=== PATIENT | male | born 1950 | race Caucasian/White ===

== ENCOUNTER → 2016-12-25 | Outpatient (REF) | payer MEDICARE, OTHER ==
[~2016-12-25] MED LIST: ATOVASTATIN PO; BACLOFEN PO; COUM2.5T11 PO; JANUVIA PO; LYRICA PO; METFORMIN PO; METHIMAZOLE PO; NAPRPOW4 PO; PERC5TAB6 PO; QUINAPRIL PO; TYLE325T5 PO; VICO7.5T11 PO; ZOLPIDEM PO
[2016-12-25 12:23] LABS: ALBUMIN 4.4 GM/DL (3.2-5.2); ALBUMIN/GLOBULIN RATIO 1.63 (1.00-1.93); ALKALINE PHOSPHATASE 71 U/L (45-117); ALT/SGPT 39 U/L (12-78); ANION GAP 9 MEQ/L (8-16); AST/SGOT 21 U/L (15-37); BILIRUBIN,TOTAL 0.6 MG/DL (0.2-1.0); BLOOD UREA NITROGEN 24 MG/DL (7-18); CALCIUM LEVEL 8.9 MG/DL (8.8-10.2); CARBON DIOXIDE LEVEL 26 MEQ/L (21-32); CHLORIDE LEVEL 106 MEQ/L (98-107); CHOLESTEROL LEVEL 161 MG/DL (<200); CREATININE FOR GFR 0.94 MG/DL (0.70-1.30); GLOMERULAR FILTRATION RATE > 60.0 (>49); GLUCOSE, FASTING 129 MG/DL (80-110); POTASSIUM SERUM 4.8 MEQ/L (3.5-5.1); SODIUM LEVEL 141 MEQ/L (136-145); TOTAL PROTEIN 7.1 GM/DL (6.4-8.2); TRIGLYCERIDES LEVEL 173 MG/DL (<150)
[2016-12-25 12:36] LABS: BASO # 0.1 K/mm3 (0.0-0.2); BASO % 0.8 % (0.0-1.0); EOS # 0.3 K/mm3 (0.0-0.50); EOS % 3.3 % (0.0-3.0); LYMPH # 3.2 K/mm3 (1.5-4.5); LYMPH % 39.9 % (24.0-44.0); MEAN CORPUSCULAR HEMOGLOBIN 31.7 pg (27.0-33.0); MEAN CORPUSCULAR HGB CONC 32.8 g/dl (32.0-36.5); MEAN CORPUSCULAR VOLUME 96.4 fl (80.0-96.0); MONO # 0.5 K/mm3 (0.0-0.8); MONO % 6.4 % (0.0-5.0); NEUTROPHILS # 3.7 K/mm3 (1.8-7.7); NEUTROPHILS % 46.7 % (36.0-66.0); RED CELL DISTRIBUTION WIDTH 12.6 % (11.5-14.5)
== END ==
LOC: M LABDRAW1 11:24
PROVIDERS: ATTEND Nurse Practitioner Family
DX: E13.00 Other specified diabetes mellitus with hyperosmolarity without nonketotic hyperglycemic-hyperosmolar coma (NKHHC) (principal)

== ENCOUNTER → 2017-03-18 | Outpatient (CLI) | payer MEDICARE, OTHER ==
[2017-03-18 07:41] LABS: BASO # 0.1 K/mm3 (0.0-0.2); BASO % 1.2 % (0.0-1.0); EOS # 0.7 K/mm3 (0.0-0.50); EOS % 8.1 % (0.0-3.0); LYMPH # 2.9 K/mm3 (1.5-4.5); LYMPH % 35.6 % (24.0-44.0); MEAN CORPUSCULAR HEMOGLOBIN 32.2 pg (27.0-33.0); MEAN CORPUSCULAR HGB CONC 32.9 g/dl (32.0-36.5); MEAN CORPUSCULAR VOLUME 97.8 fl (80.0-96.0); MONO # 0.6 K/mm3 (0.0-0.8); MONO % 6.7 % (0.0-5.0); NEUTROPHILS # 3.7 K/mm3 (1.8-7.7); NEUTROPHILS % 45.3 % (36.0-66.0); RED CELL DISTRIBUTION WIDTH 13.2 % (11.5-14.5); WHITE BLOOD COUNT 8.2 K/mm3 (4.0-10.0)
[2017-03-18 08:19] LABS: ALBUMIN/GLOBULIN RATIO 1.29 (1.00-1.93); ALKALINE PHOSPHATASE 81 U/L (45-117); ALT/SGPT 30 U/L (12-78); ANION GAP 4 MEQ/L (8-16); AST/SGOT 16 U/L (15-37); BILIRUBIN,TOTAL 0.6 MG/DL (0.2-1.0); BLOOD UREA NITROGEN 25 MG/DL (7-18); CALCIUM LEVEL 8.9 MG/DL (8.8-10.2); CARBON DIOXIDE LEVEL 30 MEQ/L (21-32); CHLORIDE LEVEL 105 MEQ/L (98-107); CHOLESTEROL LEVEL 164 MG/DL (<200); CREATININE FOR GFR 1.03 MG/DL (0.70-1.30); GLOMERULAR FILTRATION RATE > 60.0 (>49); GLUCOSE, FASTING 152 MG/DL (80-110); POTASSIUM SERUM 4.6 MEQ/L (3.5-5.1); SODIUM LEVEL 139 MEQ/L (136-145); TOTAL PROTEIN 7.1 GM/DL (6.4-8.2); TRIGLYCERIDES LEVEL 216 MG/DL (<150)
== END ==
LOC: M LAB 06:13
PROVIDERS: ATTEND Nurse Practitioner Family
DX: R53.83 Other fatigue (principal); E11.65 Type 2 diabetes mellitus with hyperglycemia; E78.5 Hyperlipidemia, unspecified

== ENCOUNTER → 2017-07-17 | Outpatient (REF) | payer MEDICARE, OTHER ==
[~2017-07-17] MED LIST changes: -COUM2.5T11 PO; +COUM2.5T17 PO; +PERC5TAB12 PO; -PERC5TAB6 PO
[2017-07-17 16:14] LABS: FREE T4 0.99 NG/DL (0.76-1.46)
== END ==
LOC: M LABDRAW1 12:39
PROVIDERS: ATTEND Physician Assistant Medical
DX: E05.20 Thyrotoxicosis with toxic multinodular goiter without thyrotoxic crisis or storm (principal)

== ENCOUNTER → 2018-06-04 | Outpatient (CLI) | payer MEDICARE, OTHER ==
[2018-06-04 08:12] LABS: FREE T4 1.04 NG/DL (0.76-1.46); THYROID STIMULATING HORMONE 0.888 uIU/ML (0.358-3.740)
== END ==
LOC: M LAB 06:36
DX: E05.20 Thyrotoxicosis with toxic multinodular goiter without thyrotoxic crisis or storm (principal)
CPT/HCPCS: 84443

== ENCOUNTER → 2018-06-07 | Outpatient (CLI) | payer MEDICARE, OTHER | LOC: M RAD 12:34 | DX: M70.60 Trochanteric bursitis, unspecified hip (principal); M46.1 Sacroiliitis, not elsewhere classified; G57.00 Lesion of sciatic nerve, unspecified lower limb; M54.16 Radiculopathy, lumbar region; M47.816 Spondylosis without myelopathy or radiculopathy, lumbar region; M51.36 Other intervertebral disc degeneration, lumbar region; M51.26 Other intervertebral disc displacement, lumbar region | CPT/HCPCS: 72148 ==

== ENCOUNTER → 2018-08-23 | Outpatient (REF) | payer MEDICARE, OTHER ==
[2018-08-23 18:12] LABS: RHEUMATOID FACTOR QUANT < 10.0 IU/ML (<15.0)
[2018-08-23 19:30] LABS: ERYTHROCYTE SEDIMENTATION RATE 16 mm/hr (0-20)
[2018-08-26 00:30] LABS: ANTINUCLEAR ANTIBODIES DIRECT Negative (Negative); Lyme Disease IgG/IgM Antibodie <0.91 ISR (0.00-0.90); Lyme Disease IgM Ab Quantitati <0.80 index (0.00-0.79)
== END ==
LOC: M LABNEURO 14:00
DX: M25.50 Pain in unspecified joint (principal)
CPT/HCPCS: 36415

== ENCOUNTER 2019-01-10 09:36 | Day surgery (SDC) | payer MEDICARE, OTHER ==
[~2019-01-10] VITALS: Ht 185.4 cm; Wt 97.9 kg
[~2019-01-10 09:36] MED LIST changes: +BACL10TA8 PO; +HYDR-3713 PO; +JANU100T PO; +LIPI10TA PO; +LIPI20TA PO; +LYRI200C PO; +METF10004 PO; +METH10TA PO; +METH25TAB PO; +NS 1,000 ML IV SCH; +PROPOFOL 200 MG/20 ML VIAL As Ordered ONE; +QUIN40TA26 PO; +ZOLP12.515 PO
--- NOTE | 2019-01-10 10:42 | ROOR ---
Patient Name: Angelo Ly Procedure Date: 01/10/2019 10:14 AM Date of : 1950 Age: 68 Room: [facility] Gender: Male Note Status: Finalized Procedure: Total Colonoscopy to Cecum + Biopsy Polypectomy Indications: Colon cancer screening in patient at increased risk: Colorectal cancer in brother Providers: Eros Arroyo MD Referring MD: JOCELYN MUNSON NP Requesting Provider: Medicines: Monitored Anesthesia Care Complications: No immediate complications. Procedure: Pre-Anesthesia Assessment: - The heart rate, respiratory rate, oxygen saturations, blood pressure, adequacy of pulmonary ventilation, and response to care were monitored throughout the procedure. The Colonoscope was introduced through the anus and advanced to the cecum, identified by appendiceal orifice and ileocecal valve. The colonoscopy was performed without difficulty. The patient tolerated the procedure well. The quality of the bowel preparation was good. Findings: The perianal and digital rectal examinations were normal. Non-bleeding internal hemorrhoids were found during retroflexion. The hemorrhoids were small and Grade I (internal hemorrhoids that do not prolapse). A small polyp was found in the ileocecal valve. The polyp was sessile. The polyp was removed with a jumbo cold forceps. Resection and retrieval were complete. A medium polyp was found at 55 cm proximal to the anus. The polyp was carpet-like. The polyp was removed with a jumbo cold forceps. Resection and retrieval were complete. The exam was otherwise without abnormality on direct and retroflexion views. The exam was otherwise without abnormality on direct and retroflexion views. Impression: - Non-bleeding internal hemorrhoids. - One small polyp at the ileocecal valve, removed with a jumbo cold forceps. Resected and retrieved. - One medium polyp at 55 cm proximal to the anus, removed with a jumbo cold forceps. Resected and retrieved. - The examination was otherwise normal on direct and retroflexion views. - The examination was otherwise normal on direct and retroflexion views. - The exam was otherwise normal to the cecum. Recommendation: - Patient has a contact number available for emergencies. The signs and symptoms of potential delayed complications were discussed with the patient. Return to normal activities tomorrow. Written discharge instructions were provided to the patient. - High fiber diet. - Discharge patient to home. - Continue present medications. - Await pathology results. - Telephone GI clinic for pathology results in 1 week. - Repeat colonoscopy for surveillance based on pathology results. - Return to referring physician. - The findings and recommendations were discussed with the patient's family. Eros Arroyo MD Eros Arroyo MD 01/10/2019 10:42:18 AM Electronically signed by Eros Arroyo MD Number of Addenda: 0 Note Initiated On: 01/10/2019 10:14 AM Estimated Blood Loss: Estimated blood loss: none.
[2019-01-10 11:00] VITALS: BP 107/60
== END 2019-01-10 11:07 | disposition home or self-care (01) ==
LOC: M OPP 09:36
PROVIDERS: ATTEND Internal Medicine Gastroenterology
DX: K64.0 First degree hemorrhoids (principal); D12.6 Benign neoplasm of colon, unspecified; K63.5 Polyp of colon; Z12.11 Encounter for screening for malignant neoplasm of colon; Z80.0 Family history of malignant neoplasm of digestive organs

== ENCOUNTER → 2019-05-31 | Outpatient (REF) | payer MEDICARE, OTHER ==
[~2019-05-31] MED LIST changes: -NS 1,000 ML IV SCH; -PROPOFOL 200 MG/20 ML VIAL As Ordered ONE
[2019-05-31 11:45] LABS: FREE T4 0.99 NG/DL (0.76-1.46); THYROID STIMULATING HORMONE 1.17 uIU/ML (0.358-3.740)
== END ==
LOC: M LABDRAW1 10:13
PROVIDERS: ATTEND Nurse Practitioner Family
DX: E05.20 Thyrotoxicosis with toxic multinodular goiter without thyrotoxic crisis or storm (principal)

== ENCOUNTER → 2019-05-31 | Outpatient (REF) | payer MEDICARE, OTHER ==
[2019-05-31 11:17] LABS: HEMATOCRIT 42.1 % (42.0-52.0); HEMOGLOBIN 13.9 g/dl (13.5-17.5); MEAN CORPUSCULAR HEMOGLOBIN 31.9 pg (27.0-33.0); MEAN CORPUSCULAR VOLUME 96.6 fl (80.0-96.0); PLATELET COUNT, AUTOMATED 247 10^3/uL (150-450); RED BLOOD COUNT 4.36 10^6/uL (4.30-6.10); WHITE BLOOD COUNT 9.6 10^3/uL (4.0-10.0)
[2019-05-31 11:32] LABS: ALT/SGPT 31 U/L (12-78); BILIRUBIN,TOTAL 0.5 MG/DL (0.2-1.0); BLOOD UREA NITROGEN 27 MG/DL (7-18); CARBON DIOXIDE LEVEL 27 MEQ/L (21-32); CHLORIDE LEVEL 106 MEQ/L (98-107); CHOLESTEROL LEVEL 160 MG/DL (<200); CHOLESTEROL RISK RATIO 4.324 (<5); CREATININE FOR GFR 1.25 MG/DL (0.70-1.30); GLOMERULAR FILTRATION RATE > 60.0 (>49); GLUCOSE, FASTING 158 MG/DL (70-100); HDL CHOLESTEROL 37 MG/DL (>40); LDL CHOLESTEROL 63 MG/DL (<100); NON-HDL-C 123 MG/DL; POTASSIUM SERUM 4.8 MEQ/L (3.5-5.1); SODIUM LEVEL 140 MEQ/L (136-145); TOTAL PROTEIN 7.7 GM/DL (6.4-8.2); TRIGLYCERIDES LEVEL 302 MG/DL (<150)
== END ==
LOC: M LABDRAW1 10:15
PROVIDERS: ATTEND Nurse Practitioner Family
DX: E11.65 Type 2 diabetes mellitus with hyperglycemia (principal); E78.5 Hyperlipidemia, unspecified; I10 Essential (primary) hypertension; E05.20 Thyrotoxicosis with toxic multinodular goiter without thyrotoxic crisis or storm

== ENCOUNTER 2019-06-14 16:02 | Inpatient (IN) | payer MEDICARE, OTHER ==
[~2019-06-14] VITALS: Ht 188 cm; Wt 97.3 kg
[~2019-06-14 16:02] MED LIST changes: -VICO7.5T11 PO; +VICO7.5T12 PO
[2019-06-14] MEDS ORDERED: ADACEL/BOOSTRIX VACCINE (DIPHTH/PERTUSS/ACELL/TETANUS)0.5ML SYR (90715) IM ONE (16:30)
[2019-06-14 16:38] LABS: HEMATOCRIT 30.8 % (42.0-52.0); HEMOGLOBIN 10.3 g/dl (13.5-17.5); MEAN CORPUSCULAR HEMOGLOBIN 32.6 pg (27.0-33.0); MEAN CORPUSCULAR HGB CONC 33.4 g/dl (32.0-36.5); MEAN CORPUSCULAR VOLUME 97.5 fl (80.0-96.0); PLATELET COUNT, AUTOMATED 166 10^3/uL (150-450); RED BLOOD COUNT 3.16 10^6/uL (4.30-6.10); WHITE BLOOD COUNT 14.3 10^3/uL (4.0-10.0)
[2019-06-14] MEDS: NS 1,000 ML IV SCH ×3 (16:43→23:43)
[2019-06-14 16:56] LABS: INR 1.24; PARTIAL THROMBOPLASTIN TIME 29.4 SECONDS (25.0-38.4); PROTHROMBIN TIME 15.3 SECONDS (11.8-14.0)
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
[2019-06-14 17:25] LABS: ALBUMIN 3.8 GM/DL (3.2-5.2); ALT/SGPT 54 U/L (12-78); BILIRUBIN,DIRECT 0.2 MG/DL (0.0-0.2); CK-MB VALUE MASS 20.5 NG/ML (<3.6); CPK CREATINE PHOSPHOKINASE 7417 U/L (39-308); LIPASE 113 U/L (73-393); MB/CK RELATIVE INDEX 0.28 (< OR =4); TOTAL PROTEIN 8.4 GM/DL (6.4-8.2); TROPONIN I 0.07 NG/ML (< 0.10)
[2019-06-14] MEDS ORDERED: NAPR-885 PO (17:37)
[2019-06-14] MEDS ORDERED: HYDR-4514 PO (17:37)
[2019-06-14] MEDS ORDERED: BACL1TAB8 PO (17:37)
--- NOTE | 2019-06-14 17:59 | REP ---
RIGHT ANKLE, FOUR VIEWS: Four views of the right ankle are performed. There is a fracture of the distal fibula with lateral displacement as well as posterior displacement. There is widening of the medial ankle mortise compatible with ligamentous disruption. Talus is mildly displaced posteriorly on the lateral view with respect to the tibia. Electronically Signed by Kelby Aguilar MD 06/16/2019 04:32 P
--- NOTE | 2019-06-14 17:59 | REP ---
RIGHT LOWER LEG, AP AND LATERAL: AP and lateral views of the right lower leg were performed. There is a total knee prosthesis. There is a slightly displaced fracture of the proximal end of the fibula. There is a fracture of the distal end of the fibula which is displaced posterolaterally. There is widening of the medial ankle mortise. There is mild displacement of the talus posteriorly. Electronically Signed by Kelby Aguilar MD 06/16/2019 04:32 P
--- NOTE | 2019-06-14 18:05 | REP ---
RIGHT FOOT, FOUR VIEWS: Four views of the right foot are performed. No fracture is seen of the osseous structures of the right foot. There is mild posterior and inferior calcaneal spurring. There is moderate narrowing at the first metatarsal phalangeal joint with associated subchondral sclerosis and spurring. There is diffuse narrowing of the interphalangeal joints. Note is made of a fracture of the distal fibula and now posterior displacement of the talus with respect to the tibia, better seen on the right ankle series performed today. Electronically Signed by Kelby Aguilar MD 06/16/2019 04:33 P
[2019-06-14 18:23] LABS: ATYPICAL LYMPH 31 % (0-5)
[2019-06-14 18:24] LABS: LYMPHOCYTES 22 % (16-44); MONOCYTES 7 % (0-5); NEUTROPHILS 37 % (28-66); PLATELET ESTIMATE NORMAL (NORMAL)
[2019-06-14 18:50] LABS: CALCIUM LEVEL 12.4 MG/DL (8.8-10.2); CREATININE FOR GFR 3.6 MG/DL (0.70-1.30); POTASSIUM SERUM 4.7 MEQ/L (3.5-5.1)
[2019-06-14 22:50] VITALS: BP 165/82
[2019-06-15 00:53] LABS: APPEARANCE, URINE HAZY (CLEAR); BACTERIA, URINE AUTO NEGATIVE (NEGATIVE); BILIRUBIN, URINE AUTO NEGATIVE (NEGATIVE); BLOOD, URINE BLOOD 3+ (NEGATIVE); COLOR, URINE STRAW (YELLOW); GLUCOSE, URINE (UA) AUTO NEGATIVE (NEGATIVE); KETONE, URINE AUTO NEGATIVE (NEGATIVE); LEUKOCYTE ESTERASE, URINE AUTO NEGATIVE (NEGATIVE); MUCUS, URINE SMALL (NEGATIVE); NITRITE, URINE AUTO NEGATIVE (NEGATIVE); PROTEIN, URINE AUTO 1+ mg/dL (NEGATIVE); RBC, URINE AUTO 19 /HPF (0-3); SQUAMOUS EPITHELIAL CELL UR AU 0 /HPF (0-6); UROBILINOGEN, URINE AUTO 0.2 mg/dL (0.0-2.0); WBC, URINE AUTO 3 /HPF (0-3)
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
[2019-06-15 04:00] VITALS: BP 173/83
[2019-06-15] MEDS: MORPHINE 4 MG/ML 1ML VIAL/SYRINGE (J2270) IV PRN (04:47)
[2019-06-15 05:21] LABS: HEMATOCRIT 29.6 % (42.0-52.0); HEMOGLOBIN 9.8 g/dl (13.5-17.5); MEAN CORPUSCULAR HGB CONC 33.1 g/dl (32.0-36.5); MEAN CORPUSCULAR VOLUME 96.7 fl (80.0-96.0); PLATELET COUNT, AUTOMATED 140 10^3/uL (150-450); RED BLOOD COUNT 3.06 10^6/uL (4.30-6.10); WHITE BLOOD COUNT 12.4 10^3/uL (4.0-10.0)
--- NOTE | 2019-06-15 05:41 | ECGEPIP ---
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
[2019-06-15] MEDS ORDERED: ceFAZolin SOD 2 GM in IV 1 EA IV ONE (06:00)
[2019-06-15 06:09] LABS: ALBUMIN 3.1 GM/DL (3.2-5.2); BILIRUBIN,TOTAL 1.2 MG/DL (0.2-1.0); CALCIUM LEVEL 11.5 MG/DL (8.8-10.2); CK-MB VALUE MASS 7.9 NG/ML (<3.6); CREATININE FOR GFR 3.4 MG/DL (0.70-1.30); GLOMERULAR FILTRATION RATE 19.2 (>49); MB/CK RELATIVE INDEX 0.12 (< OR =4); POTASSIUM SERUM 4.7 MEQ/L (3.5-5.1); TOTAL PROTEIN 7.9 GM/DL (6.4-8.2); TROPONIN I 0.05 NG/ML (< 0.10)
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
[2019-06-15] MEDS: NS 1,000 ML IV SCH ×4 (06:42→20:50)
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
[2019-06-15 08:00] VITALS: BP 161/81
[2019-06-15] MEDS ORDERED: PREGABALIN 100 MG CAP (LYRICA) PO SCH (09:00)
[2019-06-15 09:26] LABS: URIC ACID 9.8 MG/DL (3.5-7.2)
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
[2019-06-15] MEDS ORDERED: DOCUSATE SODIUM 100 MG CAP PO PRN (10:30)
[2019-06-15 12:00] VITALS: BP 160/82
[2019-06-15] MEDS: HEPARIN SOD (PORCINE) 5000 UNITS/ML VIAL SQ SCH ×2 (12:40→20:50)
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
[2019-06-15 15:46] LABS: CALCIUM LEVEL 11.4 MG/DL (8.8-10.2); CREATININE FOR GFR 3.1 MG/DL (0.70-1.30); GLOMERULAR FILTRATION RATE 21.4 (>49); PERCENT SATURATION 29.7 % (19.7-50.0); POTASSIUM SERUM 4.4 MEQ/L (3.5-5.1)
[2019-06-15 16:00] VITALS: BP 163/78
[2019-06-15] MEDS ORDERED: GLUCAGON FOR INJ 1 MG VIAL (J1610) SC PRN (18:30)
[2019-06-15] MEDS ORDERED: DEXTROSE 50% 50 ML SYRINGE IV PRN (18:30)
[2019-06-15] MEDS ORDERED: GLUCOSE 4 GM CHEW TABLET PO PRN (18:30)
[2019-06-15 18:59] LABS: FOLATE 5.1 NG/ML (>5.4)
[2019-06-15 20:00] VITALS: BP 178/81
[2019-06-15] MEDS: HumaLOG INSULIN (NovoLOG) PER UNIT SC SCH (20:31)
[2019-06-15] MEDS: ACETAMINOPHEN TAB 650MG DOSE (2X325MG) PO PRN (20:50)
[2019-06-15 23:59] VITALS: BP 170/79
[2019-06-16] MEDS: NS 1,000 ML IV SCH ×3 (00:44→16:24)
[2019-06-16 04:00] VITALS: BP 180/79
[2019-06-16] MEDS: HEPARIN SOD (PORCINE) 5000 UNITS/ML VIAL SQ SCH (04:59)
[2019-06-16 05:51] LABS: HEMATOCRIT 25.8 % (42.0-52.0); HEMOGLOBIN 8.5 g/dl (13.5-17.5); MEAN CORPUSCULAR HEMOGLOBIN 32.4 pg (27.0-33.0); MEAN CORPUSCULAR HGB CONC 32.9 g/dl (32.0-36.5); MEAN CORPUSCULAR VOLUME 98.5 fl (80.0-96.0); PLATELET COUNT, AUTOMATED 131 10^3/uL (150-450); RED BLOOD COUNT 2.62 10^6/uL (4.30-6.10); WHITE BLOOD COUNT 14.5 10^3/uL (4.0-10.0)
[2019-06-16] MEDS ORDERED: ceFAZolin SOD 2 GM in IV 1 EA IV ONE (06:00)
[2019-06-16 06:37] LABS: ALBUMIN 2.9 GM/DL (3.2-5.2); BILIRUBIN,TOTAL 1.1 MG/DL (0.2-1.0); CALCIUM LEVEL 10.7 MG/DL (8.8-10.2); CREATININE FOR GFR 2.8 MG/DL (0.70-1.30); POTASSIUM SERUM 4.1 MEQ/L (3.5-5.1); TOTAL PROTEIN 7.5 GM/DL (6.4-8.2)
[2019-06-16 06:51] LABS: EOSINOPHILS 3 % (0-3); LYMPHOCYTES 39 % (16-44); MONOCYTES 8 % (0-5); NEUTROPHILS 50 % (28-66); PLATELET ESTIMATE DECREASED (NORMAL)
[2019-06-16 07:12] VITALS: BP 172/83
[2019-06-16] MEDS: HumaLOG INSULIN (NovoLOG) PER UNIT SC SCH ×4 (07:30→21:00)
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
--- NOTE | 2019-06-16 08:47 | IPNPDOC ---
Date Seen The patient was seen on 06/16/19. Progress Note Patient seen and evaluated at this time. He has good baseline exercise tolerance able to climb several flights of stairs without any symptoms whatsoever. He denies any significant cardiac history he does have a history of hypertension dyslipidemia he is above the age of 65. He is anemic at this time I suspected benefit from transfusion perioperatively this does not need to be completed preoperatively. I suspect he is at moderate risk but he is medically optimized no further testing prior to procedure would recommend surgery today or as soon as possible defer to orthopedic surgery. VS, I&O, 24H, Fishbone Vital Signs/I&O Vital Signs Date Time Temp Pulse Resp B/P (MAP) Pulse Ox O2 Delivery O2 Flow Rate FiO2 06/16/19 07:12 98.6 90 18 172/83 (112) 95 06/14/19 16:15 Room Air I&O- Last 24 Hours up to 6 AM 06/16/19 06:00 Intake Total 5821 ml Output Total 3890 ml Balance 1931 ml Laboratory Data 24H LABS Laboratory Tests 2 06/15/19 14:50: Anion Gap 8, Glomerular Filtration Rate 21.4L, Blood Urea Nitrogen 53H, Creatinine 3.10H, Sodium Level 142, Potassium Level 4.4, Chloride Level 111H, Carbon Dioxide Level 23, Calcium Level 11.4H, Iron Level 69, Total Iron Binding Capacity 232L, Transferrin % Saturation 29.7, Ferritin 586H 06/15/19 14:51: Reticulocyte # (auto) 23.8, Percent Reticulocyte Count 0.8, Reticulocyte Hemoglobin Equivalent 37.3H 06/15/19 17:53: Vitamin B12 Level 285, Folate 5.1L 06/15/19 20:21: Bedside Glucose (Misc Panel) 170H 06/16/19 05:37: White Blood Count 14.5H, Red Blood Count 2.62L, Hemoglobin 8.5L, Hematocrit 2 5.8L, Mean Corpuscular Volume 98.5H, Mean Corpuscular Hemoglobin 32.4, Mean Corpuscular Hemoglobin Concent 32.9, Red Cell Distribution Width 14.2, Platelet Count 131L, Monocytes # (Auto) , Nucleated Red Blood Cells % (auto) 0.3H, Neutrophils 50, Lymphocytes (Manual) 39, Monocytes (Manual) 8H, Eosinophils (Manual) 3, Platelet Estimate DECREASED, Anion Gap 8, Glomerular Filtration Rate 24.0L, Blood Urea Nitrogen 44H, Creatinine 2.80H, Sodium Level 142, Potassium Level 4.1, Chloride Level 113H, Carbon Dioxide Level 21, Calcium Level 10.7H, Aspartate Amino Transf (AST/SGOT) 78H, Alanine Aminotransferase (ALT/SGPT) 48, Total Creatine Kinase 3001H, Alkaline Phosphatase 83, Total Bilirubin 1.1H, To ninoska Protein 7.5, Albumin 2.9L, Albumin/Globulin Ratio 0.63L CBC/BMP Laboratory Tests 06/15/19 14:50 Calcium Level 11.4 H 06/16/19 05:37 Calcium Level 10.7 H, Red Blood Count 2.62 L, Mean Corpuscular Volume 98.5 H, Mean Corpuscular Hemoglobin 32.4, Mean Corpuscular Hemoglobin Concent 32.9, Red Cell Distribution Width 14.2, Monocytes # (Auto) , Aspartate Amino Transf (AST/SGOT) 78 H, Alanine Aminotransferase (ALT/SGPT) 48, Total Creatine Kinase 3001 H, Alkaline Phosphatase 83, Total Bilirubin 1.1 H, Total Protein 7.5, Albumin 2.9 L KIMBER TRIPLETT MD Jun 16, 2019 08:47
[2019-06-16] MEDS ORDERED: FLUBLOK(EGG FREE)(QUAD)INFLUENZA VACC 0.5ML SYRINGE (90682)18YRS&OLDER IM ONE (09:00)
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
[2019-06-16 13:00] VITALS: BP 160/70
[2019-06-16 13:04] LABS: ALBUMIN 4.03 GM/DL (3.29-5.55); ALBUMIN % 49.1 % (55.8-66.1); ALPHA-1-GLOBULIN % 4.9 % (2.9-4.9); BETA-1-GLOBULINS % 5.2 % (4.7-7.2); BETA-2-GLOBULINS % 6.9 % (3.2-6.5); GAMMA GLOBULIN % 22.9 % (11.1-18.8)
[2019-06-16 13:05] LABS: BETA-1-GLOBULINS 0.43 GM/DL (0.28-0.60); BETA-2-GLOBULINS 0.57 GM/DL (0.19-0.55); GAMMA GLOBULINS 1.88 GM/DL (0.65-1.58); TOTAL PROTEIN 8.5 GM/DL (6.4-8.2)
[2019-06-16] MEDS ORDERED: ROCURONIUM BROMIDE 50 MG/5 ML VIAL As Ordered ONE (13:53)
[2019-06-16] MEDS ORDERED: dexameTHASONE 4 MG/ML 1ML VIAL (J1100) As Ordered ONE (13:53)
[2019-06-16] MEDS ORDERED: PROPOFOL 200 MG/20 ML VIAL As Ordered ONE (13:53)
[2019-06-16] MEDS ORDERED: fentaNYL 100 MCG/2 ML INJECTION (J3010) As Ordered ONE (13:53)
[2019-06-16] MEDS ORDERED: LIDOCAINE 2% INJ 100 MG/5 ML SDV (FOR ANES.) As Ordered ONE (13:53)
[2019-06-16] MEDS ORDERED: ONDANSETRON 4MG/2ML VIAL (J2405) As Ordered ONE (13:53)
[2019-06-16] MEDS ORDERED: MIDAZOLAM INJ 2 MG/2 ML VIAL (J2250) As Ordered ONE (13:54)
[2019-06-16] MEDS ORDERED: MORPHINE 4 MG/ML 1ML VIAL/SYRINGE (J2270) As Ordered ONE (15:01)
[2019-06-16] MEDS: MORPHINE 4 MG/ML 1ML VIAL/SYRINGE (J2270) IV PRN (15:21)
[2019-06-16 16:00] VITALS: BP 178/80
[2019-06-16] MEDS: FOLIC ACID 1 MG TAB PO SCH (16:23)
[2019-06-16] MEDS: ACETAMINOPHEN TAB 650MG DOSE (2X325MG) PO PRN (16:31)
[2019-06-16 18:44] VITALS: BP 160/70
[2019-06-16 20:00] VITALS: BP 150/70
[2019-06-16] MEDS ORDERED: PREGABALIN 50 MG CAP (LYRICA) PO SCH (21:00)
[2019-06-16] MEDS: CYANOCOBALAMIN 500 MCG TAB PO SCH (22:21)
[2019-06-17] VITALS (8 sets, daily range): BP systolic 140–176; BP diastolic 50–84
[2019-06-17 06:00] LABS: HEMATOCRIT 30.3 % (42.0-52.0); HEMOGLOBIN 10.2 g/dl (13.5-17.5); MEAN CORPUSCULAR HEMOGLOBIN 32.6 pg (27.0-33.0); MEAN CORPUSCULAR HGB CONC 33.7 g/dl (32.0-36.5); MEAN CORPUSCULAR VOLUME 96.8 fl (80.0-96.0); PLATELET COUNT, AUTOMATED 132 10^3/uL (150-450); RED BLOOD COUNT 3.13 10^6/uL (4.30-6.10); WHITE BLOOD COUNT 18.3 10^3/uL (4.0-10.0)
[2019-06-17 06:43] LABS: ALBUMIN 2.7 GM/DL (3.2-5.2); BILIRUBIN,TOTAL 1.5 MG/DL (0.2-1.0); CALCIUM LEVEL 11.5 MG/DL (8.8-10.2); CREATININE FOR GFR 2.4 MG/DL (0.70-1.30); GLOMERULAR FILTRATION RATE 28.7 (>49); TOTAL PROTEIN 7.7 GM/DL (6.4-8.2)
[2019-06-17] MEDS: NS 1,000 ML IV SCH ×2 (07:00→21:25)
[2019-06-17 08:07] LABS: IMMUNOGLOBULIN G 443 MG/DL (681-1648); IMMUNOGLOBULIN M 8.8 MG/DL (40-230); IMMUNOTYPING SERUM LAMBDA ABNORMAL (NORMAL)
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
[2019-06-17] MEDS: CYANOCOBALAMIN 500 MCG TAB PO SCH ×2 (09:58→21:00)
[2019-06-17] MEDS: FOLIC ACID 1 MG TAB PO SCH (09:59)
[2019-06-17] MEDS: amLODIPine 5 MG TAB PO SCH (09:59)
[2019-06-17] MEDS: HumaLOG INSULIN (NovoLOG) PER UNIT SC SCH ×4 (10:00→20:48)
--- NOTE | 2019-06-17 10:02 | REP ---
RIGHT ANKLE, THREE VIEWS: Three views of the right ankle are performed and compared to prior study of 06/14/2019. Fracture of the distal fibula is again seen with mild lateral displacement. Tibiotalar joint is well aligned. Tiny calcific densities are seen distal to the medial and lateral malleoli. There is mild calcaneal spurring. There is an overlying splint. Electronically Signed by Kelby Aguilar MD 06/17/2019 06:29 P
[2019-06-17 10:17] LABS: HEMOGLOBIN A1c 7.6 %
[2019-06-17] MEDS: ACETAMINOPHEN TAB 650MG DOSE (2X325MG) PO PRN (15:10)
[2019-06-17] MEDS: MORPHINE 4 MG/ML 1ML VIAL/SYRINGE (J2270) IV PRN (15:55)
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
[2019-06-18 04:39] VITALS: BP 168/83
[2019-06-18 05:29] LABS: HEMOGLOBIN 10.6 g/dl (13.5-17.5); MEAN CORPUSCULAR HEMOGLOBIN 33.1 pg (27.0-33.0); MEAN CORPUSCULAR HGB CONC 34.2 g/dl (32.0-36.5); MEAN CORPUSCULAR VOLUME 96.9 fl (80.0-96.0); PLATELET COUNT, AUTOMATED 148 10^3/uL (150-450); WHITE BLOOD COUNT 19.7 10^3/uL (4.0-10.0)
[2019-06-18 06:00] LABS: ALBUMIN 2.9 GM/DL (3.2-5.2); BILIRUBIN,TOTAL 1.4 MG/DL (0.2-1.0); CALCIUM LEVEL 11.7 MG/DL (8.8-10.2); CREATININE FOR GFR 2.13 MG/DL (0.70-1.30); POTASSIUM SERUM 3.8 MEQ/L (3.5-5.1); TOTAL PROTEIN 7.5 GM/DL (6.4-8.2)
[2019-06-18 08:00] VITALS: BP 158/70
[2019-06-18] MEDS: NS 1,000 ML IV SCH ×2 (08:53→16:49)
[2019-06-18] MEDS: HumaLOG INSULIN (NovoLOG) PER UNIT SC SCH ×4 (08:53→20:37)
[2019-06-18] MEDS: FOLIC ACID 1 MG TAB PO SCH (08:54)
[2019-06-18] MEDS: CYANOCOBALAMIN 500 MCG TAB PO SCH ×2 (08:54→20:29)
[2019-06-18] MEDS: amLODIPine 5 MG TAB PO SCH (08:55)
[2019-06-18] MEDS ORDERED: FLUBLOK(EGG FREE)(QUAD)INFLUENZA VACC 0.5ML SYRINGE (90682)18YRS&OLDER IM ONE (09:00)
[2019-06-18 11:57] LABS: URINE TOTAL PROTEIN 238.2 MG/DL (0-12)
[2019-06-18 12:00] VITALS: BP 152/76
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
[2019-06-18 16:00] VITALS: BP 160/48
[2019-06-18] MEDS: ACETAMINOPHEN TAB 650MG DOSE (2X325MG) PO PRN (17:52)
[2019-06-18 20:00] VITALS: BP 168/62
[2019-06-18] MEDS ORDERED: ZOLEDRONIC ACID 3 MG in D5W 100 ML IV ONE (20:00)
[2019-06-18] MEDS: RAMELTEON 8 MG TAB (ROZEREM) PO SCH (20:29)
[2019-06-18 23:59] VITALS: BP 165/75
[2019-06-19 04:00] VITALS: BP 162/78
[2019-06-19 05:35] LABS: HEMOGLOBIN 10.5 g/dl (13.5-17.5); MEAN CORPUSCULAR HEMOGLOBIN 31.4 pg (27.0-33.0); MEAN CORPUSCULAR HGB CONC 32.8 g/dl (32.0-36.5); MEAN CORPUSCULAR VOLUME 95.8 fl (80.0-96.0); PLATELET COUNT, AUTOMATED 178 10^3/uL (150-450); RED BLOOD COUNT 3.34 10^6/uL (4.30-6.10); WHITE BLOOD COUNT 19.7 10^3/uL (4.0-10.0)
[2019-06-19 05:56] LABS: ALBUMIN 2.8 GM/DL (3.2-5.2); BILIRUBIN,TOTAL 1.2 MG/DL (0.2-1.0); CREATININE FOR GFR 1.93 MG/DL (0.70-1.30); GLOMERULAR FILTRATION RATE 36.9 (>49); POTASSIUM SERUM 3.6 MEQ/L (3.5-5.1)
[2019-06-19] MEDS: NS 1,000 ML IV SCH ×2 (06:14→19:53)
[2019-06-19 08:00] VITALS: BP 160/90
[2019-06-19] MEDS: amLODIPine 5 MG TAB PO SCH (08:37)
[2019-06-19] MEDS: FOLIC ACID 1 MG TAB PO SCH (08:37)
[2019-06-19] MEDS: CYANOCOBALAMIN 500 MCG TAB PO SCH ×2 (08:38→20:50)
[2019-06-19] MEDS: HumaLOG INSULIN (NovoLOG) PER UNIT SC SCH ×4 (08:38→20:58)
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
[2019-06-19] MEDS: MORPHINE 4 MG/ML 1ML VIAL/SYRINGE (J2270) IV PRN ×2 (16:46→20:50)
[2019-06-19 18:00] VITALS: BP 178/80
[2019-06-19 18:42] VITALS: BP 166/78
[2019-06-19 20:00] VITALS: BP 154/74
[2019-06-19] MEDS: RAMELTEON 8 MG TAB (ROZEREM) PO SCH (20:49)
[2019-06-19 22:00] VITALS: BP 141/68
[2019-06-20 00:06] LABS: BETA 2 MICROGLOBULIN 5.2 mg/L (0.6-2.4); FREE KAPPA LIGHT CHAINS SERUM 32.3 mg/L (3.3-19.4); FREE LAMBDA LIGHT CHAINS SERUM 82471.2 mg/L (5.7-26.3)
[2019-06-20 00:06] LABS: PREGABALIN LEVEL 4.1 ug/mL (.); VITAMIN B1 LEVEL WHOLE BLOOD 119.1 nmol/L (66.5-200.0)
[2019-06-20 02:00] VITALS: BP 132/70
[2019-06-20] MEDS: ACETAMINOPHEN TAB 650MG DOSE (2X325MG) PO PRN (05:24)
[2019-06-20 06:00] VITALS: BP 142/69
[2019-06-20 06:07] LABS: HEMATOCRIT 30.4 % (42.0-52.0); HEMOGLOBIN 10.1 g/dl (13.5-17.5); MEAN CORPUSCULAR HEMOGLOBIN 31.8 pg (27.0-33.0); MEAN CORPUSCULAR HGB CONC 33.2 g/dl (32.0-36.5); MEAN CORPUSCULAR VOLUME 95.6 fl (80.0-96.0); PLATELET COUNT, AUTOMATED 162 10^3/uL (150-450); RED BLOOD COUNT 3.18 10^6/uL (4.30-6.10); WHITE BLOOD COUNT 15.4 10^3/uL (4.0-10.0)
[2019-06-20 06:27] LABS: ALBUMIN 2.6 GM/DL (3.2-5.2); BILIRUBIN,TOTAL 0.8 MG/DL (0.2-1.0); CALCIUM LEVEL 10.1 MG/DL (8.8-10.2); CREATININE FOR GFR 1.97 MG/DL (0.70-1.30); GLOMERULAR FILTRATION RATE 36.1 (>49); POTASSIUM SERUM 3.6 MEQ/L (3.5-5.1); TOTAL PROTEIN 7.6 GM/DL (6.4-8.2)
[2019-06-20] MEDS: HumaLOG INSULIN (NovoLOG) PER UNIT SC SCH ×4 (07:55→21:00)
[2019-06-20] MEDS: FOLIC ACID 1 MG TAB PO SCH (07:56)
[2019-06-20] MEDS: amLODIPine 5 MG TAB PO SCH (07:56)
[2019-06-20] MEDS: CYANOCOBALAMIN 500 MCG TAB PO SCH ×2 (07:57→21:09)
[2019-06-20 10:00] VITALS: BP 157/75
[2019-06-20] MEDS: NS 1,000 ML IV SCH (11:58)
[2019-06-20] MEDS ORDERED: POTASSIUM CHLORIDE 10 MEQ SR TABLET PO ONE (12:00)
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
[2019-06-20 14:00] VITALS: BP 153/76
--- NOTE | 2019-06-20 17:37 | REP ---
The elbows for views: I suspect there is a fracture at the base of the olecranon process. There is a air or gas within the soft tissues adjacent to this fracture. This could represent an associated laceration or olecranon bursitis/infection. No joint effusion is identified. Mineralization and joint spaces otherwise are unremarkable. An intravenous cannula is incidentally identified. Impression: Olecranon process fracture. Infected olecranon bursitis versus laceration adjacent to the fracture. Electronically Signed by Kelby Hugo MD 06/20/2019 05:28 P
[2019-06-20] MEDS: MORPHINE 4 MG/ML 1ML VIAL/SYRINGE (J2270) IV PRN ×2 (17:43→22:11)
[2019-06-20 18:00] VITALS: BP 149/74
--- NOTE | 2019-06-20 19:51 | IPN ---
DATE: 06/19/2019 Mr. Ly is seen this morning on his bedside. His significant other is present in the room. The patient is lying in the bed and denies any new complaints. He has no nausea or vomiting. He denies any dyspnea or chest pain. He is receiving IV fluid which he is tolerating reasonably well. PHYSICAL EXAMINATION: Temperature 98.3 degrees Fahrenheit, heart rate 102 per minute and respiratory rate 20 per minute. Blood pressure 160/90 mmHg and oxygen saturation 98%. His facial bruises and mild lacerations are unchanged. There is no oral thrush or ulcers. Neck is supple and without JVD or thyroid enlargement. Heart sounds are tachycardiac and lungs clear to auscultation. Abdomen soft and nontender. Bowel sounds are normal. Extremities without any cyanosis or clubbing. Right leg is in the cast. Today's labs show WBC count 19.7, hemoglobin 10.5 and hematocrit 32. Platelets 178. Sodium 143, potassium 3.6, CO2 27, BUN 29 and creatinine 1.93. Calcium level is up to 12.0 and albumin 2.8. PROBLEMS: 1. Acute kidney injury. Kidney function is slowly and gradually improving with IV fluid hydration. We will continue with the same and recheck his renal profile tomorrow. 2. Hypercalcemia, most likely related to plasma cell leukemia. His calcium level did improve initially but now it is getting worse again. He remains on IV fluid and one dose of zoledronic acid 3 mg was given last night. I will check his calcium level again tomorrow and if there is no further improvement then we will give him another dose of zoledronic acid. Most likely etiology of his hypercalcemia is underlying bone marrow malignancy for which he has already been seen by oncology. We will wait for any treatment plans. 3. Anemia. His anemia is mild and stable and does not need any intervention at present.
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
[2019-06-20 20:10] VITALS: BP 143/75
[2019-06-20] MEDS: RAMELTEON 8 MG TAB (ROZEREM) PO SCH (21:00)
[2019-06-20] MEDS: zolPIDEM TARTRATE 5 MG TAB PO PRN (21:09)
[2019-06-21 02:09] VITALS: BP 134/72
[2019-06-21 05:51] VITALS: BP 141/76
--- NOTE | 2019-06-21 06:50 | IPN ---
DATE: 06/20/2019 Mr. Ly is seen this morning on his bedside. His brother is visiting. The patient is lying in the bed and denies any new problems. He remains weak and not able to move very easily. PHYSICAL EXAMINATION: Temperature 99 degrees Fahrenheit, heart rate 90 per minute and respiratory rate 16 per minute. Blood pressure 157/75 mmHg and oxygen saturation 94% on room air. Head is atraumatic. Neck is supple and without JVD or thyroid enlargement. His facial bruises and lacerations are healing. Heart sounds are regular and lungs clear to auscultation. Abdomen soft and nontender and bowel sounds are normal. Extremities without any cyanosis or clubbing. The right leg remains in the splint. Today's labs show WBC count 15.4, hemoglobin 10.1 and hematocrit 30.4. Sodium 139, potassium 3.6, CO2 26, BUN 32 and creatinine 1.97. Glucose is 158 and calcium 10.1. PROBLEMS: 1. Acute kidney injury probably superimposed on chronic kidney disease. Kidney function seems to be leveled off. The patient has been receiving IV fluid at 75 mL per hour due to persistent hypercalcemia and we will continue with the same for now. 2. Hypercalcemia. Most likely related to plasma cell leukemia. Calcium level has improved to normal range with one dose of zoledronic acid given 2 days ago. At this point we will continue to monitor and repeat his calcium level again tomorrow morning. All other issues are being addressed by the hospitalist service and oncology.
[2019-06-21] MEDS: ACETAMINOPHEN TAB 650MG DOSE (2X325MG) PO PRN ×3 (06:56→21:02)
[2019-06-21 06:57] LABS: HEMATOCRIT 33.9 % (42.0-52.0); HEMOGLOBIN 11.1 g/dl (13.5-17.5); MEAN CORPUSCULAR HEMOGLOBIN 32.6 pg (27.0-33.0); MEAN CORPUSCULAR HGB CONC 32.7 g/dl (32.0-36.5); MEAN CORPUSCULAR VOLUME 99.4 fl (80.0-96.0); PLATELET COUNT, AUTOMATED 174 10^3/uL (150-450); RED BLOOD COUNT 3.41 10^6/uL (4.30-6.10)
[2019-06-21 07:36] LABS: ALBUMIN 2.6 GM/DL (3.2-5.2); CALCIUM LEVEL 9.7 MG/DL (8.8-10.2); CREATININE FOR GFR 2.03 MG/DL (0.70-1.30); GLOMERULAR FILTRATION RATE 34.8 (>49); POTASSIUM SERUM 3.6 MEQ/L (3.5-5.1)
[2019-06-21] MEDS: CYANOCOBALAMIN 500 MCG TAB PO SCH ×2 (08:35→21:02)
[2019-06-21] MEDS: FOLIC ACID 1 MG TAB PO SCH (08:36)
[2019-06-21] MEDS: amLODIPine 5 MG TAB PO SCH (08:38)
[2019-06-21] MEDS: HumaLOG INSULIN (NovoLOG) PER UNIT SC SCH ×4 (08:39→21:00)
[2019-06-21 08:45] VITALS: BP 139/75
[2019-06-21] MEDS ORDERED: POTASSIUM CHLORIDE 10 MEQ SR TABLET PO ONE (10:00)
[2019-06-21] MEDS: metroNIDAZOLE 500 MG in IV 1 EA IV SCH ×2 (12:07→18:56)
[2019-06-21 13:45] VITALS: BP 136/74
[2019-06-21] MEDS: cefTRIAXone SOD 1 GM in D5W MINI-BAG PLUS 50 ML IV SCH (14:35)
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
[2019-06-21] MEDS: MORPHINE 4 MG/ML 1ML VIAL/SYRINGE (J2270) IV PRN ×2 (16:23→21:10)
--- NOTE | 2019-06-21 18:32 | IPN ---
DATE: 06/21/2019 Mr. Ly is seen this morning on his bedside. He is laying in the bed without any distress and his brother is present in the room. His IV fluid was stopped yesterday per the patient's brother request. The patient reports that he has been eating and drinking well and his oral intake is adequate. He denies any nausea, vomiting, dyspnea, chest pain, fever or chills. PHYSICAL EXAMINATION: Temperature 97.6 degrees Fahrenheit, heart rate 100 per minute and respiratory rate 18 per minute. Blood pressure 139/75 mmHg and oxygen saturation 92% on room air. His head is atraumatic. Neck is supple and without jugular venous distention (JVD) or thyroid enlargement. There is no oral thrush or ulcers and mucous membranes are moist and healthy. Heart sounds are regular and tachycardiac. Lungs are clear to auscultation. Abdomen is soft and nontender and bowel sounds are normal. Extremities without any cyanosis or clubbing. Right leg is still in the brace. Neurologically, he is awake, alert and at his baseline mentation. LABORATORY DATA: Today's laboratories show WBC count 18.0, hemoglobin 11.1 and hematocrit 33.9. Sodium 139, potassium 3.6, CO2 24, BUN 36 and creatinine 2.0. Calcium is down to 9.7. PROBLEMS: 1. Acute kidney injury superimposed on chronic kidney disease. Reportedly, his baseline serum creatinine was 1.2 mg prior to admission. That indicates only mild chronic kidney disease. Superimposed acute renal failure is most likely related to acute leukemia and hypercalcemia. Initially, he was felt to be dehydrated and kidney function did improve with IV fluid hydration. It seems to be the kidney function is now leveled off and since his IV fluid has been stopped, it is slightly worsening. I have encouraged the patient to increase his oral fluid intake and we will see how he does. 2. Hypercalcemia. Calcium level has now improved to normal range. He was given zoledronic acid 3 mg dose on 06/18/2019. At this point, no other intervention is needed. 3. Hypokalemia. This is nutritional and potassium level is only borderline low. We will give him only one dose of potassium supplement with 40 mg and recheck his electrolytes tomorrow. 4. Anemia. His is anemia is stable and does not need any intervention. 5. Acute plasma cell leukemia. The patient has been seen by oncology and we will wait for a plan of care from oncology.
[2019-06-21 20:23] VITALS: BP 135/75
[2019-06-21] MEDS: RAMELTEON 8 MG TAB (ROZEREM) PO SCH (21:00)
[2019-06-21] MEDS: zolPIDEM TARTRATE 5 MG TAB PO PRN (21:02)
[2019-06-21] MEDS: HEPARIN SOD (PORCINE) 5000 UNITS/ML VIAL SQ SCH (21:02)
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
[2019-06-22] MEDS: metroNIDAZOLE 500 MG in IV 1 EA IV SCH ×3 (04:15→18:09)
[2019-06-22] MEDS: MORPHINE 4 MG/ML 1ML VIAL/SYRINGE (J2270) IV PRN (04:20)
[2019-06-22 05:15] VITALS: BP 129/76
[2019-06-22] MEDS: ACETAMINOPHEN TAB 650MG DOSE (2X325MG) PO PRN ×2 (05:32→13:27)
[2019-06-22 07:09] LABS: HEMATOCRIT 32.5 % (42.0-52.0); HEMOGLOBIN 10.8 g/dl (13.5-17.5); MEAN CORPUSCULAR HGB CONC 33.2 g/dl (32.0-36.5); MEAN CORPUSCULAR VOLUME 96.4 fl (80.0-96.0); PLATELET COUNT, AUTOMATED 206 10^3/uL (150-450); RED BLOOD COUNT 3.37 10^6/uL (4.30-6.10); WHITE BLOOD COUNT 20.8 10^3/uL (4.0-10.0)
[2019-06-22 07:43] LABS: ALBUMIN 2.7 GM/DL (3.2-5.2); BILIRUBIN,TOTAL 0.7 MG/DL (0.2-1.0); CALCIUM LEVEL 9.6 MG/DL (8.8-10.2); CREATININE FOR GFR 1.98 MG/DL (0.70-1.30); GLOMERULAR FILTRATION RATE 35.9 (>49)
[2019-06-22 08:30] VITALS: BP 131/82
[2019-06-22] MEDS: amLODIPine 5 MG TAB PO SCH (08:31)
[2019-06-22] MEDS: FOLIC ACID 1 MG TAB PO SCH (08:32)
[2019-06-22] MEDS: CYANOCOBALAMIN 500 MCG TAB PO SCH ×2 (08:32→20:32)
[2019-06-22] MEDS: HEPARIN SOD (PORCINE) 5000 UNITS/ML VIAL SQ SCH ×2 (08:32→20:32)
[2019-06-22] MEDS: HumaLOG INSULIN (NovoLOG) PER UNIT SC SCH ×4 (08:33→20:32)
--- NOTE | 2019-06-22 09:42 | REP ---
Right elbow for views: Comparison is 06/20/2019. There is a fracture at the base of the olecranon process spur as previously. There is soft tissue edema adjacent to the olecranon, as previously. There are tiny air / gas bubbles within this soft tissue edema. The findings are similar to the prior study and could represent olecranon bursitis/infection versus laceration penetrating the olecranon bursa in combination with the fracture at the base of the olecranon spur. Impression: No significant interval change. Electronically Signed by Kelby Hugo MD 06/22/2019 09:33 A
[2019-06-22] MEDS ORDERED: MORPHINE 4 MG/ML 1ML VIAL/SYRINGE (J2270) IV PRN (11:15)
[2019-06-22] MEDS: cefTRIAXone SOD 1 GM in D5W MINI-BAG PLUS 50 ML IV SCH (13:28)
--- NOTE | 2019-06-22 14:59 | IPNPDOC ---
Subjective Date Seen The patient was seen on 06/22/19. Subjective Chief Complaint/HPI Josh was seen and examined this morning while lying in bed. He states that he did not sleep well overnight. He is eating and drinking without any issues. He is ambulating to the bathroom predominantly on his left leg with the assistance of a walker. He continues to use his incentive spirometry. He denies feeling short of breath. He denies experiencing any chest pain, palpitations, fever, nausea, vomiting, paresthesias. He states his pain is moderately well controlled General: Denies: Chills, Night Sweats Constitutional: Denies: Fever Pulmonary: Denies: Dyspnea Cardiovascular: Denies: Chest Pain, Palpitations Gastrointestinal: Denies: Nausea, Vomiting, Abdominal Pain Musculoskeletal: Reports: Leg Pain (, mild right leg pain) Neurological: Denies: Numbness Objective Physical Examination General Exam: Positive: Alert, Cooperative, No Acute Distress, Other (Patient is cooperative and responds to questions and commands appropriately.) Eye Exam: Negative: Sclera icteric, Ptosis ENT Exam: Positive: Atraumatic, Mucous membr. moist/pink, Tongue Midline, Other ENT (areas of ecchymosis over the cheekbones bilaterally with dried blood on the forehead. Nares are patent.); Negative: Pharyngeal Edema Chest Exam: Positive: Normal air movement, Other (Symmetric chest expansion, with no visible use of accessory muscles); Negative: Wheezing Heart Exam: Positive: Rate Normal, Normal S1, Normal S2 Abdomen Exam: Positive: Normal bowel sounds, Soft; Negative: Tenderness, Hepatospenomegaly Extremity Exam: Positive: Normal pulses (2+ radial (bilaterally) and left posterior tibial pulses), Other (. Erythema over right elbow remains present but it circumference is decreased from where it was yesterday. Area over right elbow is mildly warm to the touch and blanches with pressure. There is no fluctuance o r crepitus when palpating area over the right elbow. Still looks "angry" but is improving.); Negative: Clubbing, Cyanosis, Edema Skin Exam: Positive: Other skin issue (areas of ecchymosis over bilateral cheekbones infraorbitally, and over bilateral anterior knee and left anterior vaca) Neuro Exam: Positive: Normal Speech, Normal Tone, Sensation Intact (, bilateral upper extremities and left lower extremity. Unable to ascertain due to splint on right lower extremity), Cranial Nerves 3-12 NL Psych Exam: Positive: Mood NL, Oriented x 3 Assessment /Plan Assessment #Primary plasma cell leukemia -Medical oncology is following patient and visited with patient and patient's family last evening. Hospitalist team communicated with medical oncology this morning, at which time medical oncology stated due to patient's rare form of leukemia, it is likely best he consult with a separate medical oncology provider/group as an outpatient. -Nephrology is also following for hypercalcemia and acute kidney injury in the setting of chronic kidney disease. Creatinine continues to be elevated with diminished GFR on morning labs. Hypercalcemia has since resolved. -Patient states his pain is relatively well controlled. We will continue with pain control in the form of Tylenol and prn morphine. We increased patient's IV morphine when necessary 2 every 8 hours from every 6. -We will continue with serial monitoring via CBC and CMP -Patient's healthcare proxy is his brother En. #Acute renal failure -Nephrology is following patient. Patient's baseline creatinine is around 1.1. Creatinine remained elevated this morning. Per nephrology, IV fluids were stopped on 06/20 as patient's calcium normalized. He is eating and drinking without any issues. -Patient appears to be holding steady with creatinine measurements around 1.9. We will continue to monitor with follow-up metabolic panels. #Leukocytosis -White blood cell count was 20.8 this morning, up from 18 yesterday. His 24-hour Tmax this morning was 99.2. He does not appear to be suffering from an acute infection and denies feeling feverish, having chills, or experiencing night sweats. -Elevated white count is likely secondary to patient's primary plasma cell leukemia. #Anemia -Patient's hemoglobin was 10.8 this morning, down from 11.1 yesterday. He previously received 2 units of packed red blood cells. -Previous measurements of folate and B12 levels were at the lower end of normal. Patient was started on B12 and folate and we will continue with dosing. -Anemia may be secondary to bone marrow cellular production disturbances related to primary plasma cell leukemia #Right fibular fracture Patient was seen by orthopedic surgery last week on , 06/16. Surgical intervention at that time was delayed due to active blisters over right lower extremity and uncertainty regarding patient's newly diagnosed leukemia. -Hospitalist team spoke with orthopedics this morning who confirmed a vaca has a 1 PM appointment tomorrow (06/23) at their office to perform extensive dressing changes and likely cast changes. This cannot be done in patient's hospital bed. Orthopedics is arranging transport. -Orthopedic says there is nothing from their perspective prohibiting patient from hospital discharge. -Pain control is in the form of Tylenol and prn morphine. We increased the duration of time between as needed morphine from 6 hours to 8 hours. Patient states his pain is relatively well controlled. We will continue with this regimen. #Right elbow bursitis -Area of erythema seems to be less intense today compared to previous days. The circumference of the affected area also appears to be diminished. The erythematous affected area was marked with pen yesterday. There is no fluctuance or crepitus on palpation of the affected area. Affected area blanches with pressure. There is no active oozing or discharge. Patient has full range of motion at elbow joint. This looks like fluid collection and does not appear to be infected. -In the setting of patient's newly diagnosed leukemia leading to an immunocompromise state, Rocephin and Flagyl were added for antibiotic coverage stay. Patient is on day 2 of of both Rocephin and Flagyl. In relatively elderly patient with immunocompromised state, signs like fever and chills may be nonsp ecific fracture infection. Patient denies fever and chills today. -Repeat complete right elbow x-ray was performed this morning. Images were reviewed, which showed soft tissue inflammation with no signs of visible air within the swelling. -Nursing order place to have patient keep right elbow extended and elevated so as to decrease dependent swelling. -This is the main limiting factor. When considering hospital discharge for patient. We will continue to monitor for changes over the next day and assess for discharge appropriateness tomorrow. #Hypertension -Patient's home TARI inhibitor was held in the setting of acute renal failure. -Patient was put on Norvasc 5 mg. Continue to monitor patient's blood pressure closely and consider increase to 10 mg if bp elevation remains sustained. #Hyperthyroidism -We will continue with patient's home medication of methimazole. Thyroid calcifications were noted and outpatient thyroid ultrasound follow-up is recommended. #History of chronic low back pain -Lyrica was stopped due to likely toxic dose in the setting of renal failure and inability to metabolize Lyrica. -Patient also takes opioids as outpatient. #Hypercholesterolemia -Consider resuming patient's home atorvastatin dosing in the coming days #Glaucoma -Patient resumed outpatient medication on Thursday in the form of Combigan and Travatan Z eyedrops #DM II -Patient is on sliding scale insulin. Continue to monitor and upcoming labs. #DVT prophylaxis Patient was placed on subcutaneous heparin 5000 units bid on Thursday (06/21) Plan/VTE VTE Prophylaxis Ordered?: Yes VS, I&O, 24H, Fishbone Vital Signs/I&O Vital Signs Date Time Temp Pulse Resp B/P (MAP) Pulse Ox O2 Delivery O2 Flow Rate FiO2 06/22/19 08:31 102 131/82 06/22/19 05:15 98.5 15 94 I&O- Last 24 Hours up to 6 AM 06/22/19 06:00 Intake Total 2560 ml Output Total 2475 ml Balance 85 ml Laboratory Data 24H LABS Laboratory Tests 2 06/21/19 17:07: Bedside Glucose (Misc Panel) 288H 06/21/19 20:26: Bedside Glucose (Misc Panel) 170H 06/22/19 06:42: Nucleated Red Blood Cells % (auto) 0.2H, Anion Gap 8, Glomerular Filtration Rate 35.9L, Blood Urea Nitrogen 36H, Creatinine 1.98H, Sodium Level 140, Potassium Level 4.0, Chloride Level 104, Carbon Dioxide Level 28, Calcium Level 9.6, Aspartate Amino Transf (AST/SGOT) 70H, Alanine Aminotransferase (ALT/SGPT) 58, Alkaline Phosphatase 108, Total Bilirubin 0.7, Total Protein 8.0, Albumin 2.7L, Albumin/Globulin Ratio 0.51L 06/22/19 13:09: Bedside Glucose (Misc Panel) 252H CBC/BMP Laboratory Tests 06/22/19 06:42 Red Blood Count 3.37 L, Mean Corpuscular Volume 96.4 H, Mean Corpuscular Hemoglo bin 32.0, Mean Corpuscular Hemoglobin Concent 33.2, Red Cell Distribution Width 14.6 H, Calcium Level 9.6, Aspartate Amino Transf (AST/SGOT) 70 H, Alanine Aminotransferase (ALT/SGPT) 58, Alkaline Phosphatase 108, Total Bilirubin 0.7, Total Protein 8.0, Albumin 2.7 L Microbiology Microbiology 06/16/19 Stool Occult Blood (TIANA) - Final, Complete GME ATTESTATION GME ATTESTATION My faculty preceptor for this patient encounter was physically present during the encounter and was fully available. All aspects of the patient interview, examination, medical decision making process, and medical care plan development were reviewed and approved by the faculty preceptor. The faculty preceptor is aware and concurs with the plan as stated in the body of this note and will attest to such by his/her cosignature. ATTENDING NOTE Patient was seen and examined by me this morning with the residents. Agree with the above assessment and plan GINETTE RODRIGUEZ PGY-1 Jun 22, 2019 14:59 NJ ESPINOZA MD Jun 23, 2019 08:45
[2019-06-22] MEDS ORDERED: PERCOCET 5MG/325MG TAB PO PRN (15:30)
[2019-06-22 16:07] VITALS: BP 135/83
[2019-06-22] MEDS: PERCOCET 5MG/325MG TAB PO PRN ×2 (16:33→22:35)
[2019-06-22 17:34] LABS: TOTAL PROTEIN 24 HOUR URINE 6227.4 MG/24HR (50-150); URINE TOTAL PROTEIN 211.1 MG/DL (0-12)
--- NOTE | 2019-06-22 17:49 | IPN ---
DATE: 06/22/2019 Mr. Ly is seen this morning on his bedside. He is feeling about the same and reports that pain in the right elbow is better. He had another x-ray done this morning which did show a possible fracture and bursitis. He does have erythema on the elbow but has been afebrile. The patient denies any nausea, vomiting, dyspnea or chest pain. PHYSICAL EXAMINATION: Temperature 98.5 degrees Fahrenheit, heart rate 102 per minute and respiratory rate 15 per minute. Blood pressure 131/82 mmHg and oxygen saturation 94% on room air. His head is atraumatic. Neck is supple and without jugular venous distention (JVD) or thyroid enlargement. Heart sounds are tachycardiac. Lungs clear to auscultation. Abdomen is soft and nontender and bowel sounds are normal. Extremities without any cyanosis or clubbing. Right leg is still in the splint. His right elbow has erythema but he can move his arm well. Neurologically, he is awake, alert and oriented times three. LABORATORY DATA: Today's laboratories show WBC count 20.8, hemoglobin 10.8 and hematocrit 32.5. Platelets 206. Sodium 140, potassium 4.0, CO2 28, BUN 36 and creatinine 1.98. PROBLEMS: 1. Acute kidney injury superimposed on mild chronic kidney disease. Kidney function has leveled off and no change noted for last three days. His oral intake is adequate and IV fluid has been stopped. He is currently not on any diuretic, angiotensin-converting enzyme (TARI) inhibitor or nephrotoxic antibiotic. 2. Hypercalcemia, most likely related to plasma cell leukemia and has improved with zoledronic chronic acid. At this point, we will continue to monitor and no changes are being made today. 3. Anemia. His anemia is mild and stable and does not need any intervention. All other issues are being addressed by the hospitalist service and oncology.
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
[2019-06-22] MEDS: RAMELTEON 8 MG TAB (ROZEREM) PO SCH (20:32)
[2019-06-22] MEDS: zolPIDEM TARTRATE 5 MG TAB PO PRN (20:32)
[2019-06-22 22:00] VITALS: BP 135/83
[2019-06-23] MEDS: metroNIDAZOLE 500 MG in IV 1 EA IV SCH ×3 (02:59→18:11)
[2019-06-23] MEDS: PERCOCET 5MG/325MG TAB PO PRN ×3 (04:28→17:01)
[2019-06-23 06:38] LABS: TOTAL PROTEIN,RANDOM URINE 211.1 MG/DL (0.0-12.0); URINE TOTAL PROTEIN 211.1 MG/DL (0-12); URINE VOLUME 2950 ML
[2019-06-23 07:26] LABS: HEMATOCRIT 33.9 % (42.0-52.0); MEAN CORPUSCULAR HEMOGLOBIN 31.3 pg (27.0-33.0); MEAN CORPUSCULAR HGB CONC 32.4 g/dl (32.0-36.5); MEAN CORPUSCULAR VOLUME 96.6 fl (80.0-96.0); PLATELET COUNT, AUTOMATED 246 10^3/uL (150-450); RED BLOOD COUNT 3.51 10^6/uL (4.30-6.10); WHITE BLOOD COUNT 24.1 10^3/uL (4.0-10.0)
[2019-06-23 07:52] LABS: CALCIUM LEVEL 9.4 MG/DL (8.8-10.2); CREATININE FOR GFR 2.05 MG/DL (0.70-1.30); GLOMERULAR FILTRATION RATE 34.4 (>49); POTASSIUM SERUM 4.4 MEQ/L (3.5-5.1)
[2019-06-23] MEDS: HumaLOG INSULIN (NovoLOG) PER UNIT SC SCH ×4 (08:20→21:00)
[2019-06-23] MEDS: CYANOCOBALAMIN 500 MCG TAB PO SCH ×2 (09:41→21:04)
[2019-06-23] MEDS: FOLIC ACID 1 MG TAB PO SCH (09:41)
[2019-06-23 09:44] VITALS: BP 145/73
[2019-06-23] MEDS: amLODIPine 5 MG TAB PO SCH (09:44)
[2019-06-23 12:51] LABS: UPEP INTERPRETATION 2 M-SPIKES IN GAMMA; URINE VOLUME RANDOM ML
[2019-06-23 12:52] LABS: UPEP INTERPRETATION 2 M-SPIKES IN GAMMA
[2019-06-23 12:53] LABS: IMMUNOTYPE URINE LAMBDA ABNORMAL (NORMAL)
[2019-06-23] MEDS ORDERED: LIDOCAINE 2% MDV 20 ML VIAL XX ONE (14:00)
--- NOTE | 2019-06-23 14:06 | IPN ---
DATE OF VISIT: 06/23/2019 Mr. Cruz is seen this morning on his bedside. His brother is present in the room and patient reports feeling about the same. His right elbow pain and discomfort has improved. He is going to go to orthopedic office for right foot evaluation. He was not felt to be a surgical candidate due to recent diagnosis of acute plasma cell leukemia. Patient had acute renal failure and creatinine has leveled off at about 2.0. He also has severe hypercalcemia related to plasma cell leukemia and his calcium level improved only with zoledronic acid and did not change much with aggressive IV fluid hydration. At this point, his mentation is stable and he is able to get out of bed and sit in the chair. On physical exam, temperature 99.0 degrees Fahrenheit, heart rate 103 per minute and respiratory rate 16 per minute. Blood pressure 145/73 mmHg and oxygen saturation 94% on room air. His neck is supple and without jugular venous distention (JVD) or thyroid enlargement. There is no oral thrush or ulcers. Heart sounds regular and tachycardiac, and lungs clear to auscultation. Abdomen soft and nontender. Bowel sounds normal. Extremities without any cyanosis or clubbing. Right leg is in the splint and Stefan wrap. Right elbow area erythema is slightly better and tenderness is minimal. Today's labs show WBC count 24.1, hemoglobin 11.0 and hematocrit 33.9. Platelets 246. Sodium 139, potassium 4.4, CO2 30, BUN 33 and creatinine 2.05. Glucose 177 and calcium 9.4. PROBLEMS: 1. Acute renal failure most likely related to acute plasma cell leukemia and hypercalcemia. His kidney function seems to be leveled off with creatinine about 1.9-2.0 range. At this point, patient is being encouraged to continue with liberal fluid intake. His IV fluid has been stopped. 2. Hypercalcemia. Calcium level remained as high as 12.0 even with aggressive IV fluid hydration and it only improved with zoledronic acid. At this point, his calcium level remained stable and does not need any other intervention. 3. Leukocytosis. Patient is currently afebrile and I am concerned about possibility of right foot wound contributing to leukocytosis in addition to his right elbow bursitis. Patient remains on ceftriaxone and metronidazole. He is going to have his right foot wound evaluated by ortho today. 4. Plasma cell leukemia. Patient is being followed by oncology and a bone marrow biopsy is in the works.
[2019-06-23 15:11] VITALS: BP 145/75
[2019-06-23] MEDS ORDERED: DECA4TAB PO (15:35)
[2019-06-23] MEDS: cefTRIAXone SOD 1 GM in D5W MINI-BAG PLUS 50 ML IV SCH (16:36)
--- NOTE | 2019-06-23 16:53 | RO ---
MEDICAL ONCOLOGY PROCEDURE NOTE DATE OF SERVICE: 06/23/2019 DIAGNOSIS: Plasma cell leukemia on peripheral flow cytometry 27% plasma cells. PROCEDURE: Bone marrow aspirate and biopsy as part of baseline staging for flow and cytogenetics and morphology. I explained to Josh risks, benefits and side effects of bone marrow biopsy including but not limited to pain bleeding, infection at the site, risk of organ puncture, risk of spinal cord damage. He signed written informed consent. The patient was prepped and draped in usual sterile fashion. Time-out taken. Patient self identified and the procedure to be done. Bone marrow aspirate and biopsy were attempted at the right posterior superior iliac crest. A paucity of spicules and dry tap, but a successful bone sample were achieved. After gaining permission, we prepped and anesthetized a second site more medial. There was successful aspiration of spicules and aspirate. No second attempt at bone biopsy was made. The patient tolerated procedure well. Minimal bleeding at the site.
--- NOTE | 2019-06-23 17:27 | IPNPDOC ---
Date Seen The patient was seen on 06/23/19. Progress Note SUBJECTIVE: Josh was seen and examined this morning while sitting upright in bed. He was due to have multiple appointments today with PT, orthopedic surgery, and medical oncology. Patient will have dressing and splint changes for right lower extremity fractures. Patient will also undergo a bone marrow biopsies afternoon. Patient had poor overall sleep overnight but states his pain is well controlled. Yesterday afternoon, Percocet was added to pain regimen. Patient is eating and drinking without any issues. He denies any fever, chills, night sweats, shortness of breath, chest pain, chest pressure, feeling nauseated, vomiting, or paresthesias. Patient reports using incentive spirometry. OBJECTIVE PHYSICAL EXAMINATION: VITAL SIGNS: Please see below. GENERAL: Josh is a male who is awake, alert and oriented 3. He is resting comfortably in bed at time of exam. He responds to questions and commands appropriately. HEENT: There are extensive areas of ecchymosis infraorbitally and overlying the cheekbones bilaterally. There remains areas of dried blood on the forehead. Left pupil appears slightly constricted as compared to the right. Both pupils are round and reactive to light and accommodation. Extraocular motion is intact. There is no cervical or supraclavicular lymphadenopathy appreciated. CARDIOVASCULAR: Regular rate with ormal S1, S2 with no murmur or gallop apprec iated. 2+ radial pulses bilaterally. 2+ posterior tibial pulse on the left. No left lower extremity edema RESPIRATORY: Mildly diminished tidal volume with no audible wheezes or rhonchi. No use of accessory muscles with respiration. There is symmetric chest expansion with respiration. ABDOMINAL: Abdomen is soft and nontender to palpation. There is no rigidity or guarding. No active bowel sounds are present. EXTREMITIES: There is a a splint and bandaging over the right lower extremity just inferior to the knee. There are areas of ecchymosis on bilateral forearms and left lower extremity that appear to be healing. Patient has 5 out of 5 muscle strength testing of upper extremities bilaterally and left lower extremity. NEUROLOGICAL: Patient is alert and oriented 3. He is following commands and answering questions appropriately. He maintains good eye contact. Sensation to light touch of upper extremities is intact bilaterally. PSYCHOLOGICAL: [employer], mood, appropriate affect LABORATORY DATA, IMAGING STUDIES, MICROBIOLOGY: Please see below. ASSESSMENT AND PLAN: #Primary plasma cell leukemia -Patient is being followed by medical oncology. Patient underwent a bone marrow biopsy this afternoon. Medical oncology is arranging the optimal plan of treatment for patient's rare form of leukemia. -We will continue with serial monitoring via CBC and CMP -Patient's healthcare proxy is his brother En. #Acute renal failure -Nephrology is following patient. Patient's baseline creatinine is around 1.1. Creatinine remained elevated this morning. Per nephrology, IV fluids were stopped on 06/20 as patient's calcium normalized. He is eating and drinking without any issues. -Patient appears to be holding steady with creatinine measurements around 1.9. We will continue to monitor with follow-up metabolic panels. #Leukocytosis -White blood cell count was 24.1 this morning, up from 20.8 yesterday. -Patient is afebrile and denies recent fevers, chills, or night sweats. -Elevated white count is likely secondary to patient's primary plasma cell leukemia and right elbow bursitis. -Patient is on day 3 of Rocephin and Flagyl. #Anemia -Patient's hemoglobin was 11 this morning, up from 10.8 yesterday. He previously received 2 units of PRBCs during admission. -Anemia may be secondary to bone marrow cellular production disturbances related to primary plasma cell leukemia #Right fibular fracture -Pt was seen by orthopedic surgery today for a dressing change and new splint over right lower extremity. -Patient is a follow-up visit with orthopedic surgery scheduled for 07/05 -Patient states his pain is well controlled at this time. -Patient is working with physical therapy and is ambulating predominantly on left foot with the assistance of walker. -Per PT, patient will not be cleared from their perspective until home railings are set up. #Right elbow bursitis -Affected area appears to be healing well and is less in circumference today than on previous days. Erythema is still present, but warmth is diminished. The area blanches with pressure, there is no fluctuance or crepitus. Patient had no tenderness upon palpation of the affected area. -Patient is currently on day 3 of Rocephin and Flagyl. -Patient remains afebrile and denies any chills or night sweats. -Patient is instructed to keep right elbow extended as much as possible and to elevate right upper extremity with pillows, so as to decrease dependent swelling. #Hypertension -Patient's home TARI inhibitor was held in the setting of acute renal failure. -Patient was put on Norvasc 5 mg. -We will continue to monitor patient's blood pressure closely and consider increase to 10 mg if bp elevation remains sustained. #Hyperthyroidism -We will continue with patient's home medication of methimazole. Thyroid calcifications were noted and outpatient thyroid ultrasound follow-up is recommended. #History of chronic low back pain -Lyrica was stopped due to likely toxic dose in the setting of renal failure and inability to metabolize Lyrica. -Patient also takes an opioid for pain as outpatient. #Hypercholesterolemia -Consider resuming patient's home atorvastatin dosing in the coming days #Glaucoma -Patient resumed outpatient medication on Thursday in the form of Combigan and Travatan Z eyedrops. #DM II -Patient is on sliding scale insulin. Continue to monitor upcoming labs. #DVT prophylaxis Patient was placed on subcutaneous heparin 5000 units bid on Thursday (06/21) DISPOSITION: From the perspective of the hospitalist team, we are targeting tomorrow for possible discharge. Patient's right elbow bursitis continues to improve, his pain is well-controlled. There are plans for outpatient follow-up with orthopedic surgery as well as medical oncology. The sooner patient is discharged and can commence proper leukemia treatments, the better. VS, I&O, 24H, [place] Vital Signs/I&O Vital Signs Date Time Temp Pulse Resp B/P (MAP) Pulse Ox O2 Delivery O2 Flow Rate FiO2 06/23/19 17:01 12 06/23/19 09:44 99.0 104 145/73 (97) 94 I&O- Last 24 Hours up to 6 AM 06/23/19 06:00 Intake Total 1950 ml Output Total 2150 ml Balance -200 ml Laboratory Data 24H LABS Laboratory Tests 2 06/22/19 20:28: Bedside Glucose (Misc Panel) 206H 06/23/19 06:53: Nucleated Red Blood Cells % (auto) 0.3H, Anion Gap 4L, Glomerular Filtration Ra te 34.4L, Blood Urea Nitrogen 33H, Creatinine 2.05H, Sodium Level 139, Potassium Level 4.4, Chloride Level 105, Carbon Dioxide Level 30, Calcium Level 9.4 06/23/19 12:58: Bedside Glucose (Misc Panel) 206H 06/23/19 16:39: 06/23/19 16:55: Bedside Glucose (Misc Panel) 192H CBC/BMP Laboratory Tests 06/23/19 06:53 Red Blood Count 3.51 L, Mean Corpuscular Volume 96.6 H, Mean Corpuscular Hemoglobin 31.3, Mean Corpuscular Hemoglobin Concent 32.4, Red Cell Distribution Width 14.6 H, Calcium Level 9.4 Microbiology Microbiology 06/16/19 Stool Occult Blood (TIANA) - Final, Complete GME ATTESTATION GME ATTESTATION My faculty preceptor for this patient encounter was physically present during the encounter and was fully available. All aspects of the patient interview, examination, medical decision making process, and medical care plan development were reviewed and approved by the faculty preceptor. The faculty preceptor is aware and concurs with the plan as stated in the body of this note and will attest to such by his/her cosignature. ATTENDING NOTE Patient was seen and examined by me this morning with the residents. Agree with the above assessment and plan GINETTE RODRIGUEZ PGY-1 Jun 23, 2019 17:27 [place] ESPINOZA MD Jun 24, 2019 13:39
[2019-06-23 18:00] VITALS: BP 145/75
[2019-06-23] MEDS ORDERED: dexameTHASONE 20 MG/5 ML VIAL (J1100) IV ONE (18:45)
--- NOTE | 2019-06-23 19:00 | IPNPDOC ---
Text Note Date of Service The patient was seen on 06/23/19. NOTE The is solely a quick documentation note. Received a call from Dr. Vazquez who is Mr. Ly's oncologist after Dr. Rojas had left for the day. She explained that the plan up to now had been or him to be discharged home soon to receive treatment as an outpatient but this plan is now being changed. 1. 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 Dr. Vazquez will be speaking with the patient and his brother shortly (health care proxy) about staying for immediate inpatient treatment 3. For now will start fluids for hydration NS @ 100cc/hr 4. BID tumor lysis labs with BMP, uric acid, phos and calcium 5. Will start empiric allopurinol 300 daily for first dose now 6. Will give dexamethasone 40mg PO x 1 dose 7. Will need TTE at some point during this admission Communicated the plan with nursing. VS,Fishbone, I+O VS, Fishbone, I+O Laboratory Tests 06/23/19 06:53 Red Blood Count 3.51 L, Mean Corpuscular Volume 96.6 H, Mean Corpuscular Hemoglobin 31.3, Mean Corpuscular Hemoglobin Concent 32.4, Red Cell Distribution Width 14.6 H, Calcium Level 9.4 Vital Signs Date Time Temp Pulse Resp B/P (MAP) Pulse Ox O2 Delivery O2 Flow Rate FiO2 06/23/19 17:31 16 06/23/19 09:44 99.0 104 145/73 (97) 94 I&O- Last 24 Hours up to 6 AM 06/23/19 05:59 Intake Total 1650 ml Output Total 1950 ml Balance -300 ml KELLY DUMONT MD Jun 23, 2019 19:00
[2019-06-23] MEDS: ALLOPURINOL 300 MG TAB PO SCH (19:05)
[2019-06-23] MEDS: NS 1,000 ML IV SCH (19:39)
[2019-06-23 19:52] LABS: CALCIUM LEVEL 9.2 MG/DL (8.8-10.2); CREATININE FOR GFR 2.01 MG/DL (0.70-1.30); GLOMERULAR FILTRATION RATE 35.2 (>49); POTASSIUM SERUM 4.2 MEQ/L (3.5-5.1)
[2019-06-23 20:58] VITALS: BP 143/78
[2019-06-23] MEDS: ACETAMINOPHEN TAB 650MG DOSE (2X325MG) PO PRN (21:04)
[2019-06-23] MEDS: RAMELTEON 8 MG TAB (ROZEREM) PO SCH (21:04)
[2019-06-23] MEDS: HEPARIN SOD (PORCINE) 5000 UNITS/ML VIAL SQ SCH (21:21)
[2019-06-23] MEDS: zolPIDEM TARTRATE 5 MG TAB PO PRN (21:21)
[2019-06-24] MEDS: NS 1,000 ML IV SCH ×2 (06:12→15:43)
[2019-06-24] MEDS: PERCOCET 5MG/325MG TAB PO PRN ×3 (06:12→18:24)
[2019-06-24 07:09] VITALS: BP 146/80
[2019-06-24 07:21] LABS: CALCIUM LEVEL 9.2 MG/DL (8.8-10.2); CREATININE FOR GFR 1.9 MG/DL (0.70-1.30); GLOMERULAR FILTRATION RATE 37.6 (>49); PHOSPHORUS LEVEL 5.2 MG/DL (2.5-4.9); POTASSIUM SERUM 4.9 MEQ/L (3.5-5.1); URIC ACID 7.7 MG/DL (3.5-7.2)
[2019-06-24] MEDS: CYANOCOBALAMIN 500 MCG TAB PO SCH ×2 (08:40→21:37)
[2019-06-24] MEDS: HEPARIN SOD (PORCINE) 5000 UNITS/ML VIAL SQ SCH ×2 (08:40→21:38)
[2019-06-24] MEDS: amLODIPine 5 MG TAB PO SCH (08:40)
[2019-06-24] MEDS: HumaLOG INSULIN (NovoLOG) PER UNIT SC SCH ×4 (08:40→21:38)
[2019-06-24] MEDS: ALLOPURINOL 300 MG TAB PO SCH (08:41)
[2019-06-24] MEDS: FOLIC ACID 1 MG TAB PO SCH (08:41)
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
[2019-06-24] MEDS: cefTRIAXone SOD 1 GM in D5W MINI-BAG PLUS 50 ML IV SCH (11:25)
--- NOTE | 2019-06-24 13:22 | ONC.PHACK ---
CHEMO ADMIN CHECKLIST Order Contains Pt ID: Name, Order on Chemo Order Form?: Yes Order Form Includes ALL: Correct Tx Day, Correct Date, Correct Cycle Number Pt ID on Order form Matches: Pt ID on PHA Label Med on Chemo OrderForm Matches: PHA Label, Med Used for Preparation [facility] Jun 24, 2019 13:22
[2019-06-24] MEDS ORDERED: PROCHLORPERAZINE 10 MG PO PO ONE (13:30)
[2019-06-24] MEDS ORDERED: PALONOSETRON 250 MCG IV IV ONE (13:30)
[2019-06-24] MEDS ORDERED: BORTEZOMIB SC ONE (14:30)
[2019-06-24 15:38] VITALS: BP 127/70
[2019-06-24] MEDS: valACYclovir HCL 500 MG TAB PO SCH (15:43)
[2019-06-24] MEDS: BACTRIM 160MG/800MG DS TAB PO SCH (15:43)
[2019-06-24] MEDS ORDERED: ONDANSETRON 4MG/2ML VIAL (J2405) IV PRN (17:15)
[2019-06-24] MEDS ORDERED: METOCLOPRAMIDE INJ 10MG/2ML VIAL (J2765) IV PRN (17:15)
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
[2019-06-24 20:03] LABS: CALCIUM LEVEL 7.9 MG/DL (8.8-10.2); CREATININE FOR GFR 2.08 MG/DL (0.70-1.30); GLOMERULAR FILTRATION RATE 33.9 (>49); PHOSPHORUS LEVEL 3.2 MG/DL (2.5-4.9); POTASSIUM SERUM 4.4 MEQ/L (3.5-5.1); URIC ACID 6.4 MG/DL (3.5-7.2)
--- NOTE | 2019-06-24 20:32 | IPN ---
DATE: 06/24/2019 Mr. Ly seems to be doing better. He has no new complaints. His elbow is doing better. He has had no fever or chills. Today he started Decadron 20 mg and Velcade subcutaneous. I discussed the case with Dr. Hetal Hogan regarding his right leg. She did not feel that he had an infected leg but that the skin integrity was compromised, and he had a lot of fracture blisters that could get infected with chemotherapy. I discussed the case with Dr. Vazquez who recommended that pneumocystis carinii pneumonia (PCP) prophylaxis with Bactrim and varicella-zoster virus (VZV) prophylaxis with Valtrex. PHYSICAL EXAMINATION: Afebrile. Temperature is 98.5, pulse 106, respirations 20, blood pressure 146/80, oxygen saturation 96% on room air. HEART: Normal S1, S2. ABDOMEN: Soft, nontender. Right elbow olecranon bursitis with erythema. Normal range of motion. The erythema has decreased. There is no fluctuance. The area of induration is about 6 x 5 cm. LABORATORY DATA: White count is 24.1, hemoglobin 11, hematocrit 33.9, platelets 246. Sodium 135, potassium 4.9, chloride 102, bicarbonate 26, BUN 35, creatinine 1.9, glucose 310, uric acid 7.7, calcium 9.2, phosphorus 5.2. IMPRESSION: 1. Right elbow olecranon bursitis, on intravenous (IV) Rocephin. Flagyl was discontinued. Continue with IV Rocephin until Thursday. Then the patient could be switched to cefdinir 300 mg by mouth twice a day to finish a total of 14-day course. 2. Right ankle fracture with fracture blisters that are hemorrhagic. No infection of the right lower extremity according to Dr. Hogan, but the patient is on Rocephin that should cover any possibility of superimposed infection of the right leg. I cannot examine the leg, as the cast will not be changed until Thursday. 3. Chemotherapy for plasma cell leukemia. The patient will need PCP prophylaxis with Bactrim Thursday, Thursday, Thursday and varicella-zoster virus (VZV) prophylaxis will Valtrex. Renally dose at 500 mg by mouth daily. Continue IV Rocephin 1 gram daily, Valtrex start 500 mg daily, and Bactrim Thursday, Thursday, Thursday for PCP prophylaxis.
[2019-06-24 21:03] VITALS: BP 132/73
--- NOTE | 2019-06-24 21:21 | IPN ---
DATE: 06/24/2019 Mr. Ly is seen this morning on his bedside. He is laying in the bed as usual receiving IV fluid now. His brother is present in the room. The patient's brother reports that Dr. Vazquez has decided to start chemo for his acute plasma cell leukemia, and the patient has also been started on IV fluid for hydration purpose. The patient denies any dyspnea, chest pain, nausea or vomiting. PHYSICAL EXAMINATION: Temperature 98 degrees Fahrenheit, heart rate 106 per minute and respiratory rate 16 per minute. Blood pressure 146/80 mmHg and oxygen saturation 95% on room air. Head is atraumatic. Neck is supple and without jugular venous distention (JVD) or thyroid enlargement. Heart sounds regular and tachycardiac. Lungs: Clear to auscultation. Abdomen: Soft and nontender and bowel sounds normal. Extremities: Without any cyanosis or clubbing. Right elbow erythema is gradually improving. His right foot and leg remain in the splint. Neurologically, he is awake, alert and at his baseline mentation. Today's labs show sodium 135, potassium 4.9, CO2 of 26, BUN 35 and creatinine 1.90. Glucose 310 and uric acid is 7.7 with calcium 9.2. PROBLEM #1: Acute renal failure superimposed on mild chronic kidney disease. Kidney function initially improved, however for the last 5 days it has almost leveled off. Now he is receiving IV fluid once again, and we will see if his kidney function improves further. His oral intake has been adequate. PROBLEM #2: Hypercalcemia. Related to acute leukemia and has improved since he received zoledronic acid. At present, his calcium level is stable and will need to be monitored on daily basis. PROBLEM #3: Acute plasma cell leukemia. The patient has started chemotherapy, and we will continue to monitor him closely along with you. I agree with IV fluid hydration. He has also been started on allopurinol 300 mg daily due to risk of hyperuricemia related to tumor lysis syndrome.
[2019-06-24] MEDS: zolPIDEM TARTRATE 5 MG TAB PO PRN (21:37)
[2019-06-24] MEDS: RAMELTEON 8 MG TAB (ROZEREM) PO SCH (21:37)
[2019-06-25] MEDS: NS 1,000 ML IV SCH ×3 (00:41→22:03)
[2019-06-25] MEDS: PERCOCET 5MG/325MG TAB PO PRN ×4 (00:41→22:03)
[2019-06-25 06:21] VITALS: BP 123/71
[2019-06-25] MEDS: HumaLOG INSULIN (NovoLOG) PER UNIT SC SCH ×3 (08:16→17:32)
[2019-06-25] MEDS: CYANOCOBALAMIN 500 MCG TAB PO SCH ×2 (08:16→22:04)
[2019-06-25 08:17] LABS: HEMATOCRIT 27.2 % (42.0-52.0); MEAN CORPUSCULAR HEMOGLOBIN 31.9 pg (27.0-33.0); MEAN CORPUSCULAR HGB CONC 33.1 g/dl (32.0-36.5); MEAN CORPUSCULAR VOLUME 96.5 fl (80.0-96.0); PLATELET COUNT, AUTOMATED 251 10^3/uL (150-450); RED BLOOD COUNT 2.82 10^6/uL (4.30-6.10); WHITE BLOOD COUNT 25.3 10^3/uL (4.0-10.0)
[2019-06-25] MEDS: amLODIPine 5 MG TAB PO SCH (08:18)
[2019-06-25] MEDS: ALLOPURINOL 300 MG TAB PO SCH (08:19)
[2019-06-25] MEDS: FOLIC ACID 1 MG TAB PO SCH (08:19)
[2019-06-25] MEDS: HEPARIN SOD (PORCINE) 5000 UNITS/ML VIAL SQ SCH ×2 (08:20→22:01)
[2019-06-25] MEDS: valACYclovir HCL 500 MG TAB PO SCH (08:20)
[2019-06-25 08:53] LABS: CALCIUM LEVEL 7.9 MG/DL (8.8-10.2); CREATININE FOR GFR 2.14 MG/DL (0.70-1.30); GLOMERULAR FILTRATION RATE 32.8 (>49); PHOSPHORUS LEVEL 3.8 MG/DL (2.5-4.9); POTASSIUM SERUM 5.1 MEQ/L (3.5-5.1)
[2019-06-25 09:57] LABS: ATYPICAL LYMPH 5 % (0-5); LYMPHOCYTES 19 % (16-44); MONOCYTES 15 % (0-5); NEUTROPHILS 60 % (28-66); PLATELET ESTIMATE NORMAL (NORMAL); SMUDGE CELLS 1+
[2019-06-25 09:58] LABS: ANISOCYTOSIS 1+
[2019-06-25] MEDS ORDERED: GLUCAGON FOR INJ 1 MG VIAL (J1610) SC PRN (10:45)
[2019-06-25] MEDS ORDERED: DEXTROSE 50% 50 ML SYRINGE IV PRN (10:45)
[2019-06-25] MEDS ORDERED: GLUCOSE 4 GM CHEW TABLET PO PRN (10:45)
[2019-06-25] MEDS: cefTRIAXone SOD 1 GM in D5W MINI-BAG PLUS 50 ML IV SCH (10:53)
[2019-06-25] MEDS: LEVEMIR (INSULIN DETEMIR) 1 UNITS/0.01ML SC SCH ×2 (11:01→22:06)
[2019-06-25 11:55] LABS: MAGNESIUM LEVEL 2.4 MG/DL (1.8-2.4)
--- NOTE | 2019-06-25 14:03 | IPN ---
DATE: 06/25/2019 SUBJECTIVE: Patient was seen and examined at the bedside today morning. Patient is afebrile, hemodynamically stable. He has been started on chemotherapy. His renal function is stable. Creatinine is fluctuating between 2-2.1. He continues to be on intravenous (IV) fluid hydration for prevention of tumor lysis syndrome. He denies any active complaints at this time. OBJECTIVE: VITAL SIGNS: Temperature is 98 degrees Fahrenheit, blood pressure 123/71, pulse is 90, respiratory rate of 18, saturating 96% on room air. INTAKE AND OUTPUT: Urine output recorded is 2.1 liters yesterday, 1500 mL so far today since overnight. Weight in the bed scale is not available. PHYSICAL EXAMINATION: GENERAL: Patient is awake, alert, oriented times three, laying in bed in no apparent distress. HEAD AND NECK EXAM: Extraocular muscles intact. Pupils equally round and reactive to light. Mucous membranes are moist. Neck is supple. There is no jugular venous distention (JVD). CARDIOVASCULAR: S1, S2. Regular rate. Trace edema of the lower extremity. RESPIRATORY: Chest is clear to auscultation bilaterally. Bilateral equal air entry. No rales or rhonchi. ABDOMEN: Soft. Positive bowel sounds. Nontender. No organomegaly. MUSCULOSKELETAL: Patient has a dressing on the right foot and right elbow bursitis is improving. CENTRAL NERVOUS SYSTEM (EXPLORATION DRILLER): No focal deficit. Power is 5/5 in bilateral upper extremities. LABORATORY REVIEW: Complete blood count (CBC) showed a WBC of 25.3, hemoglobin is 9, platelets are 251. Basic metabolic panel (BMP) showed sodium 134, potassium 5.1, chloride 103, bicarbonate 21, BUN 45, creatinine is 2.1, uric acid is 6, calcium is 7.9, phosphorus is 3.8. CURRENT INPATIENT MEDICATIONS: Patient's medications were all reviewed by me. He is getting Rocephin 1 gram IV every 24 hours. I am decreasing the IV fluid hydration to 75 mL an hour. He is getting dexamethasone as part of the chemotherapy regimen. He was started on Bactrim Thursday, Thursday, Thursday yesterday and Valcyte 500 mg by mouth daily yesterday. ASSESSMENT AND PLAN: 1. Acute kidney injury. It is associated with plasma cell leukemia. Patient continues to be on IV fluid hydration; however, I am decreasing the IV fluid rate to 75 mL an hour. Volume status is optimal and electrolytes are mostly within the normal limits. 2. Hyponatremia. Patient has slight hypervolemic hyponatremia. He is getting constant IV fluid hydration, as mentioned above. I am decreasing the normal saline at 75 mL an hour. 3. Plasma cell leukemia. Patient is getting Bactrim Thursday, Thursday, Thursday for prophylaxis for bacterial infection and Valtrex 500 mg by mouth daily for viral prophylaxis. Hematology/oncology is already on board. He is getting the tumor lysis labs as per hematology and he is on dexamethasone and bortezomib as per protocol. Patient is receiving allopurinol 300 mg by mouth daily for tumor lysis prophylaxis. 4. Hypertension with chronic kidney disease. Blood pressure is controlled with current dose of amlodipine 5 mg daily. 5. Diabetes mellitus type 2, insulin dependent. Patient's glucose levels are not controlled. Sugars are running in 300s to 400s. He is currently getting dexamethasone for chemotherapy. Patient is currently on insulin sliding scale and he has been started on Levemir 5 units subcutaneous twice a day as well. The rest of the insulin management is as per primary team. [facility]
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
[2019-06-25 15:08] VITALS: BP 124/71
--- NOTE | 2019-06-25 15:10 | IPN ---
DATE: 06/25/2019 DIAGNOSES: 1. Plasma cell leukemia. 2. High risk for tumor lysis syndrome. INTERVAL HISTORY: Josh is reclining in bed watching TV, feeling well. He reports no pain, nausea, vomiting, or distress. LABORATORY DATA: WBC 25, hemoglobin 9, hematocrit 27, platelets 251, nucleated RBC 0.1, monocytosis 15,000. Uric acid peaked at 7.7 yesterday, 6 today. Electrolytes: Sodium 134, calcium 7.9. No albumin available. Magnesium 2.4, potassium 5.1, creatinine 2.1. LDH I have ordered. IMPRESSION: Plasma cell leukemia, day 2, cycle 1, Velcade/Revlimid/dexamethasone with day 1 Velcade yesday, June 24, day 1 dexamethasone 40 mg the day prior. Next Velcade Thursday, June 17. Next dexamethasone 40 mg , June 3. Tolerating treatment well so far. Mild hypocalcemia. Normal potassium. RECOMMENDATIONS/PLAN 1. Please add LDH to daily labs. 2. Add full comprehensive metabolic panel (CMP) to daily labs to include albumin so that calcium can be corrected. 3. Continue IV fluid 100-125 mL per hour. 4. Continue following uric acid. 5. Will follow closely. MTDD
[2019-06-25] MEDS ORDERED: COMB0.2S OU (15:11)
[2019-06-25] MEDS ORDERED: TRAV04OPD OU (15:11)
[2019-06-25 18:29] LABS: PHOSPHORUS LEVEL 2.5 MG/DL (2.5-4.9); URIC ACID 5.3 MG/DL (3.5-7.2)
[2019-06-25] MEDS ORDERED: HumaLOG INSULIN (NovoLOG) PER UNIT SC STA (21:37)
[2019-06-25 22:00] VITALS: BP 127/71
[2019-06-25] MEDS: RAMELTEON 8 MG TAB (ROZEREM) PO SCH (22:03)
[2019-06-25] MEDS: COMBIGAN (PATIENT'S OWN MED) OU SCH (22:04)
[2019-06-25] MEDS: TRAVATAN Z OU SCH (22:05)
[2019-06-26] MEDS: HumaLOG INSULIN (NovoLOG) PER UNIT SC SCH ×4 (01:06→17:55)
[2019-06-26 02:00] VITALS: BP 123/71
[2019-06-26 06:00] VITALS: BP 138/73
[2019-06-26] MEDS: valACYclovir HCL 500 MG TAB PO SCH (08:06)
[2019-06-26] MEDS: PERCOCET 5MG/325MG TAB PO PRN ×3 (08:06→20:38)
[2019-06-26] MEDS: FOLIC ACID 1 MG TAB PO SCH (08:06)
[2019-06-26] MEDS: ALLOPURINOL 300 MG TAB PO SCH (08:06)
[2019-06-26] MEDS: HEPARIN SOD (PORCINE) 5000 UNITS/ML VIAL SQ SCH ×2 (08:07→20:27)
[2019-06-26] MEDS: CYANOCOBALAMIN 500 MCG TAB PO SCH ×2 (08:07→20:25)
[2019-06-26] MEDS: amLODIPine 5 MG TAB PO SCH (08:07)
[2019-06-26] MEDS: COMBIGAN (PATIENT'S OWN MED) OU SCH ×2 (08:08→20:26)
[2019-06-26] MEDS: LEVEMIR (INSULIN DETEMIR) 1 UNITS/0.01ML SC SCH ×2 (08:08→20:25)
[2019-06-26 08:36] LABS: HEMATOCRIT 25.9 % (42.0-52.0); HEMOGLOBIN 8.5 g/dl (13.5-17.5); MEAN CORPUSCULAR HEMOGLOBIN 31.8 pg (27.0-33.0); MEAN CORPUSCULAR HGB CONC 32.8 g/dl (32.0-36.5); PLATELET COUNT, AUTOMATED 261 10^3/uL (150-450); RED BLOOD COUNT 2.67 10^6/uL (4.30-6.10); WHITE BLOOD COUNT 29.4 10^3/uL (4.0-10.0)
[2019-06-26 09:08] LABS: ALBUMIN 2.7 GM/DL (3.2-5.2); BILIRUBIN,TOTAL 0.4 MG/DL (0.2-1.0); CREATININE FOR GFR 1.89 MG/DL (0.70-1.30); GLOMERULAR FILTRATION RATE 37.8 (>49); MAGNESIUM LEVEL 2.4 MG/DL (1.8-2.4); POTASSIUM SERUM 4.6 MEQ/L (3.5-5.1); TOTAL PROTEIN 7.1 GM/DL (6.4-8.2); URIC ACID 5.2 MG/DL (3.5-7.2)
[2019-06-26 09:19] LABS: ATYPICAL LYMPH 14 % (0-5); LYMPHOCYTES 13 % (16-44); METAMYELOCYTES 2 % (0-0); MONOCYTES 2 % (0-5); MYELOCYTES 2 % (0-0); NEUTROPHILS 62 % (28-66); PLATELET ESTIMATE NORMAL (NORMAL)
[2019-06-26] MEDS: cefTRIAXone SOD 1 GM in D5W MINI-BAG PLUS 50 ML IV SCH (10:31)
--- NOTE | 2019-06-26 11:02 | IPNPDOC ---
Subjective Date Seen The patient was seen on 06/26/19. Subjective Chief Complaint/HPI Patient offers no new complaints, in no apparent distress General: Denies: ROS Unobtainable, Chills, Night Sweats, Fatigue, Malaise, Normal Appetite, Other Symptoms Constitutional: Denies: Chills, Fever, Malaise, Night Sweats, Weakness, Fatigue, Weight Loss, Lethargy, Other Skin: Denies: Rash, Lesions, Jaundice, Bruising, Itching, Dry, Breakdown, Nail Changes, Other Pulmonary: Denies: Dyspnea, Cough, Pleuritic Chest Pain, Other Symptoms Cardiovascular: Denies: Chest Pain, Palpitations, Orthopnea, Paroxysmal Noc. Dyspnea, Edema, Lt Headedness, Other Symptoms Gastrointestinal: Denies: Nausea, Vomiting, Abdominal Pain, Diarrhea, Constipation, Melena, Hematochezia, Other Symptoms Endocrine: Denies: Polydipsia, Polyphagia, Polyuria, Heat Intolerance, Cold Intolerance, Other Endocrine Sx Musculoskeletal: Denies: Neck Pain, Back Pain, Shoulder Pain, Arm Pain, Hand Pain, Leg Pain, Foot Pain, Joint Pain, Muscle Pain, Spasms, Other Symptoms Objective Physical Examination General Exam: Positive: Alert, Cooperative, No Acute Distress, Other (Patient is cooperative and responds to questions and commands appropriately.) ENT Exam: Positive: Atraumatic, Mucous membr. moist/pink, Tongue Midline, Other ENT (areas of ecchymosis over the cheekbones bilaterally with dried blood on the forehead. Nares are patent.) Chest Exam: Positive: Normal air movement, Other (Symmetric chest expansion, with no visible use of accessory muscles) Heart Exam: Positive: Rate Normal, Normal S1, Normal S2 Abdomen Exam: Positive: Normal bowel sounds, Soft Extremity Exam: Positive: Normal pulses (2+ radial (bilaterally) and left posterior tibial pulses), Other (. Erythema over right elbow remains present but it circumference is decreased from where it was yesterday. Area over right elbow is mildly warm to the touch and blanches with pressure. There is no fluctuance or crepitus when palpating area over the right elbow. Still looks "angry" but is improving.) Skin Exam: Positive: Other skin issue (areas of ecchymosis over bilateral cheekbones infraorbitally, and over bilateral anterior knee and left anterior vaca) Neuro Exam: Positive: Normal Speech, Normal Tone, Sensation Intact (, bilateral upper extremities and left lower extremity. Unable to ascertain due to splint on right lower extremity), Cranial Nerves 3-12 NL Psych Exam: Positive: Mood NL, Oriented x 3 Assessment /Plan Problems (1) Plasma cell leukemia Onset Date: ~ 05/2019 Status: Acute Problem Text: Patient diagnosed with primary plasma cell leukemia Pt is being followed by Dr. Vazquez Continue Decadron Patient was started on IV fluids for possible tumor lysis syndrome Patient also getting allopurinol for same reason Further recommendation as per Dr. Vazquez (2) Ankle fracture, right Status: Acute Problem Text: Right fibular fracture Dressing and splint over her right lower extremity as per orthopedic Follow-up with orthopedic as an outpatient on 07/05 Physical therapy in progress (3) Acute renal failure Status: Acute Problem Text: Acute kidney injury Elevated creatinine during the admission. Patient baseline creatinine is 1.1 IV fluids have been started Dr. Kim has been consulted for nephrology Monitor BUN/creatinine Further, as per nephrology recommendations Plan/VTE VTE Prophylaxis Ordered?: Yes VS, I&O, 24H, [facility] Vital Signs/I&O Vital Signs Date Time Temp Pulse Resp B/P (MAP) Pulse Ox O2 Delivery O2 Flow Rate FiO2 06/26/19 08:36 18 06/26/19 08:07 78 138/73 06/26/19 06:00 97.5 96 I&O- Last 24 Hours up to 6 AM 06/26/19 06:00 Intake Total 2050 ml Output Total 2350 ml Balance -300 ml Laboratory Data 24H LABS Laboratory Tests 2 06/25/19 12:21: Bedside Glucose (Misc Panel) 530*H 06/25/19 12:41: Bedside Glucose Confirm (Misc) 497*H 06/25/19 16:45: Bedside Glucose (Misc Panel) 360H 06/25/19 17:50: Uric Acid 5.3, Phosphorus Level 2.5# 06/25/19 20:43: Bedside Glucose (Misc Panel) 413H 06/26/19 00:38: Bedside Glucose (Misc Panel) 290H 06/26/19 06:38: Bedside Glucose (Misc Panel) 210H 06/26/19 07:39: Immature Granulocyte % (Auto) , White Blood Count 29.4H, Red Blood Count 2.67L, Hemoglobin 8.5L, Hematocrit 25.9L, Mean Corpuscular Volume 97.0H, Mean Corpuscular Hemoglobin 31.8, Mean Corpuscular Hemoglobin Concent 32.8, Red Cell Distribution Width 14.6H, Platelet Count 261, Monocytes # (Auto) , Nucleated Red Blood Cells % (auto) 0.3H, Neutrophils 62, Band Neutrophils 5, Lymphocytes (Manual) 13L, Monocytes (Manual) 2, Metamyelocytes 2H, Myelocytes 2H, Atypical Lymphocytes 14H, Platelet Estimate NORMAL, Macrocytosis 1+, Anion Gap 8, Glomerular Filtration Rate 37.8L, Blood Urea Nitrogen 44H, Creatinine 1.89H, Sodium Level 141#, Potassium Level 4.6, Chloride Level 109H, Carbon Dioxide Level 24, Calcium Level 8.0L, Phosphorus Level 3.0, Aspartate Amino Transf (AST/SGOT) 85H, Alanine Aminotransferase (ALT/SGPT) 83H, Lactate Dehydrogenase 537H, Alkaline Phosphatase 124H, Total Bilirubin 0.4, Uric Acid 5.2, Total Protein 7.1, Albumin 2.7L, Magnesium Level 2.4, Albumin/Globulin Ratio 0.61L CBC/BMP Laboratory Tests 06/26/19 07:39 Red Blood Count 2.67 L, Mean Corpuscular Volume 97.0 H, Mean Corpuscular Hemoglobin 31.8, Mean Corpuscular Hemoglobin Concent 32.8, Red Cell Distribution Width 14.6 H, Monocytes # (Auto) , Calcium Level 8.0 L, Phosphorus Level 3.0, Aspartate Amino Transf (AST/SGOT) 85 H, Alanine Aminotransferase (ALT/SGPT) 83 H, Lactate Dehydrogenase 537 H, Alkaline Phosphatase 124 H, Total Bilirubin 0.4, Uric Acid 5.2, Total Protein 7.1, Albumin 2.7 L Microbiology Microbiology 06/24/19 Blood Culture - Preliminary, Resulted No Growth after 48 hours. All Specime... 06/16/19 Stool Occult Blood (TIANA) - Final, Complete NAVIN RALPH MD Jun 26, 2019 11:02
[2019-06-26] MEDS: ACETAMINOPHEN TAB 650MG DOSE (2X325MG) PO PRN ×2 (12:18→17:59)
[2019-06-26 14:00] VITALS: BP 127/75
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
--- NOTE | 2019-06-26 15:20 | IPN ---
DATE: 06/26/2019 SUBJECTIVE: Patient was seen and examined at the bedside today morning. He is afebrile, hemodynamically stable. His renal function is improving gradually. Creatinine is down to 1.8. He continues to be on intravenous (IV) fluid hydration. IV fluids were decreased to 75 mL an hour yesterday. That has helped improve his hyponatremia as well. Patient denies any active complaints. OBJECTIVE: VITAL SIGNS: Temperature is 97.5 degrees Fahrenheit, blood pressure 138/73, pulse is 78, respiratory rate of 18, saturating 96% on room air. INTAKE AND OUTPUT: Urine output recorded is 3.8 liters yesterday, 758 mL so far since overnight. Weight in the bed scale is not available. PHYSICAL EXAMINATION: GENERAL: Patient is awake, alert, oriented times three, laying in bed in no apparent distress. HEAD AND NECK EXAM: Extraocular muscles intact. Pupils equally round and reactive to light. Mucous membranes are moist. Neck is supple. There is no jugular venous distention (JVD). CARDIOVASCULAR: S1, S2. Regular rate. No edema of the bilateral lower extremities. RESPIRATORY: Chest is clear to auscultation bilaterally. Bilateral equal air entry. No rales or rhonchi. ABDOMEN: Soft. Positive bowel sounds. Nontender. No organomegaly. MUSCULOSKELETAL: He has a dressing on the right foot; otherwise, normal range of movement. CENTRAL NERVOUS SYSTEM (FIELD MARKETER): No focal deficit. Power is 5/5 in bilateral upper extremities. LABORATORY REVIEW: Complete blood count (CBC) showed a WBC 29.4, hemoglobin 8.5, platelets 261. Basic metabolic panel (BMP) showed sodium 141, potassium 4.6, chloride 109, bicarbonate 24, BUN 44, creatinine is 1.89, calcium is 8, uric acid 5.2, phosphorus is 3, magnesium 2.4. AST 85, ALT is 83, alkaline phosphatase 124, LDH 537. CURRENT INPATIENT MEDICATIONS: Patient's medications were all reviewed by me. Patient continues on IV fluid hydration, is on normal saline at 75 mL an hour. He continues to be on IV ceftriaxone. Chemotherapy is as per hematology/oncology. There is no other change in the medications today as compared with yesterday. ASSESSMENT AND PLAN: 1. Acute kidney injury. Patient is being treated for plasma cell leukemia. He is on IV fluid hydration. Renal function continues to improve. Creatinine is down to 1.8 now. 2. Hyponatremia. Sodium level is improved with improvement in hyperglycemia and lowering the IV fluids. Sodium level is within the normal range now. 3. Plasma cell leukemia. Chemotherapy is being managed by hematology/oncology. Patient is getting labs every 12 hours for possible tumor lysis syndrome. He continues to be on IV fluid hydration. 4. Hypertension. Blood pressure is controlled with amlodipine. 5. Diabetes mellitus type 2. Glucose levels are better controlled with current insulin regimen.
[2019-06-26 18:42] LABS: PHOSPHORUS LEVEL 2.5 MG/DL (2.5-4.9); URIC ACID 4.7 MG/DL (3.5-7.2)
[2019-06-26] MEDS: RAMELTEON 8 MG TAB (ROZEREM) PO SCH (20:25)
[2019-06-26] MEDS: TRAVATAN Z OU SCH (20:26)
[2019-06-26] MEDS: NS 1,000 ML IV SCH (20:27)
[2019-06-26] MEDS: zolPIDEM TARTRATE 5 MG TAB PO PRN (20:38)
[2019-06-26 22:00] VITALS: BP 130/74
[2019-06-27] VITALS (7 sets, daily range): BP systolic 130–138; BP diastolic 69–76
[2019-06-27] MEDS: HumaLOG INSULIN (NovoLOG) PER UNIT SC SCH ×5 (00:48→23:12)
[2019-06-27] MEDS: NS 1,000 ML IV SCH ×2 (00:49→14:10)
[2019-06-27] MEDS: PERCOCET 5MG/325MG TAB PO PRN ×3 (02:45→21:06)
[2019-06-27] MEDS: ACETAMINOPHEN TAB 650MG DOSE (2X325MG) PO PRN (06:36)
[2019-06-27 06:43] LABS: HEMATOCRIT 27.4 % (42.0-52.0); HEMOGLOBIN 8.9 g/dl (13.5-17.5); MEAN CORPUSCULAR HEMOGLOBIN 31.8 pg (27.0-33.0); MEAN CORPUSCULAR HGB CONC 32.5 g/dl (32.0-36.5); MEAN CORPUSCULAR VOLUME 97.9 fl (80.0-96.0); PLATELET COUNT, AUTOMATED 269 10^3/uL (150-450)
[2019-06-27 06:44] LABS: WHITE BLOOD COUNT 44.1 10^3/uL (4.0-10.0)
[2019-06-27 07:14] LABS: ALBUMIN 2.6 GM/DL (3.2-5.2); BILIRUBIN,TOTAL 0.4 MG/DL (0.2-1.0); CALCIUM LEVEL 8.1 MG/DL (8.8-10.2); CREATININE FOR GFR 1.69 MG/DL (0.70-1.30); MAGNESIUM LEVEL 2.4 MG/DL (1.8-2.4); PHOSPHORUS LEVEL 2.8 MG/DL (2.5-4.9); POTASSIUM SERUM 4.2 MEQ/L (3.5-5.1); TOTAL PROTEIN 7.6 GM/DL (6.4-8.2); URIC ACID 4.9 MG/DL (3.5-7.2)
[2019-06-27 08:07] LABS: ATYPICAL LYMPH 4 % (0-5); BLAST CELLS 1 % (0-0); EOSINOPHILS 1 % (0-3); LYMPHOCYTES 41 % (16-44); MONOCYTES 12 % (0-5); MYELOCYTES 1 % (0-0); NEUTROPHILS 32 % (28-66); PLASMA CELL 7 % (0-0)
[2019-06-27 08:08] LABS: ANISOCYTOSIS 1+; PLATELET ESTIMATE NORMAL (NORMAL); POIKILOCYTOSIS 1+
[2019-06-27] MEDS: LEVEMIR (INSULIN DETEMIR) 1 UNITS/0.01ML SC SCH ×2 (08:12→21:05)
[2019-06-27] MEDS: HEPARIN SOD (PORCINE) 5000 UNITS/ML VIAL SQ SCH ×2 (08:12→21:05)
[2019-06-27] MEDS: CYANOCOBALAMIN 500 MCG TAB PO SCH ×2 (08:13→21:06)
[2019-06-27] MEDS: BACTRIM 160MG/800MG DS TAB PO SCH (08:13)
[2019-06-27] MEDS: valACYclovir HCL 500 MG TAB PO SCH (08:13)
[2019-06-27] MEDS: FOLIC ACID 1 MG TAB PO SCH (08:14)
[2019-06-27] MEDS: ALLOPURINOL 300 MG TAB PO SCH (08:14)
[2019-06-27] MEDS: amLODIPine 5 MG TAB PO SCH (08:15)
[2019-06-27] MEDS: COMBIGAN (PATIENT'S OWN MED) OU SCH ×2 (08:16→21:07)
[2019-06-27] MEDS ORDERED: REVL10CA2 PO (09:33)
[2019-06-27] MEDS: cefTRIAXone SOD 1 GM in D5W MINI-BAG PLUS 50 ML IV SCH (11:49)
--- NOTE | 2019-06-27 12:44 | ONC.PHACK ---
CHEMO ADMIN CHECKLIST Order Contains Pt ID: Name, Order on Chemo Order Form?: Yes Order Form Includes ALL: Correct Tx Day, Correct Date, Correct Cycle Number Pt ID on Order form Matches: Pt ID on PHA Label Med on Chemo OrderForm Matches: PHA Label, Med Used for Preparation [facility] Jun 27, 2019 12:44
--- NOTE | 2019-06-27 13:18 | IPN ---
DATE: 06/27/2019 SUBJECTIVE: The patient was seen and examined at the bedside this morning. He is afebrile, hemodynamically stable. His renal function continues to improve. Creatinine is down to 1.6 today. He continues to be on chemotherapy. Electrolytes are within the accepted range, and he continues to on gentle IV fluid hydration for prevention of tumor lysis syndrome. OBJECTIVE: Vital signs: Temperature is 97.9 degrees Fahrenheit, blood pressure 136/71, pulse is 68, respiratory of 18, saturating 93% on room air. Intake and output: Urine output recorded as 2.7 liters yesterday, 400 mL so far today since overnight. Weight on the bed scale is not available. PHYSICAL EXAMINATION: General: The patient is awake, alert, oriented times three, laying in bed. No apparent distress. Head and neck exam extraocular muscles intact. Pupils equally round and reactive to light. Mucous membranes are moist. Neck is supple. There is no jugular venous distention (JVD). Cardiovascular: S1, S2 regular rate. No edema of the bilateral lower extremities. Respiratory: Chest is clear to auscultation bilaterally. Bilateral equal air entry. No rales or rhonchi. Abdomen: Soft, positive bowel sounds. Nontender. No organomegaly. Musculoskeletal: The patient has right foot dressing because of recent fracture. 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 Power is 5/5 in bilateral upper extremities. LABORATORY REVIEW: CBC showed WBC 44.1, hemoglobin is 8.9, platelets are 269. BMP showed sodium 144, potassium 4.2, chloride 111, bicarbonate 26, BUN 32, creatinine is 1.69, it was 1.8 yesterday. Uric acid 4.9, calcium 8.1, phosphorus 2.8, magnesium 2.4, albumin is 2.6. CURRENT INPATIENT MEDICATIONS: The patient's medications were all reviewed by me. He continues to be on normal saline at 75 mL an hour. The patient is going to get one dose of bivatuzumab in the afternoon today. No other change in the medications today as compared with yesterday. ASSESSMENT/PLAN: 1. Acute kidney injury. Patient's renal function continues to improve. Plasma cell leukemia is being treated. Creatinine is down to 1.69. Continue gentle IV fluid hydration. 2. Chronic gout secondary to chronic kidney disease. Tumor lysis syndrome prophylaxis. Continue normal saline at 75 mL an hour. Continue allopurinol 300 mg p.o. daily. 3. Hypertension with chronic kidney disease. Continue current dose of amlodipine 5 mg p.o. daily. 4. Plasma cell leukemia. The patient is getting chemotherapy. He will get a dose of Velcade in the afternoon today. Rest of the management is as per Hematology/Oncology. DISPOSITION: The patient will need the IV fluid at least for the next 2 days for tumor lysis syndrome prophylaxis. Otherwise, the patient is hemodynamically stable and renal functions are improving.
[2019-06-27] MEDS ORDERED: BORTEZOMIB SC ONE (14:00)
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
--- NOTE | 2019-06-27 18:18 | IPN ---
DATE: 06/27/2019 Angelo seems to be doing well. He is anxious to go home. He has no nausea, vomiting or diarrhea. No abdominal pain, fever or chills. He has received his second dose of Velcade without any side effects. He is anxious to go home. PHYSICAL EXAMINATION: Temperature is 97.9, pulse 68, respirations 18, blood pressure 136/71, oxygen saturation 93% on room air. HEART: Normal S1, S2. No murmurs, rubs or gallops. LUNGS: Clear. No wheezes, rales or rhonchi. ABDOMEN: Soft, nontender. No hepatosplenomegaly. EXTREMITIES: Left: No edema. No normal range of motion. Abrasion and scab on the left knee is healing well. Face: Multiple bruises are healing well. Right elbow olecranon bursitis with decreased erythema and tenderness. IMPRESSION: 1. Right elbow olecranon bursitis, on IV Rocephin, currently day number seven. He will be switched to Keflex for another seven days. 2. Right ankle fracture with fracture blisters. Per Dr. Hogan, no evidence of infection but compromised skin integrity. 3. Leukemia, on therapy with a white count of 44,000 today. The patient is on pneumocystis pneumonia (PCP) prophylaxis with Bactrim DS one tablet Thursday, Thursday, Thursday and Valtrex for a varicella-zoster virus (VZV) prophylaxis 500 mg daily as the patient is also on Decadron. PLAN: Discontinue IV Rocephin, switch to Keflex three times a day for one week. Continue prophylaxis with Valtrex and Bactrim. From an infectious disease standpoint, the patient could be discharged home.
[2019-06-27 18:47] LABS: CALCIUM LEVEL 8.2 MG/DL (8.8-10.2); PHOSPHORUS LEVEL 2.9 MG/DL (2.5-4.9); URIC ACID 4.4 MG/DL (3.5-7.2)
[2019-06-27] MEDS: RAMELTEON 8 MG TAB (ROZEREM) PO SCH (21:06)
[2019-06-27] MEDS: zolPIDEM TARTRATE 5 MG TAB PO PRN (21:07)
[2019-06-27] MEDS: TRAVATAN Z OU SCH (21:08)
[2019-06-28] MEDS: HumaLOG INSULIN (NovoLOG) PER UNIT SC SCH ×4 (00:17→17:59)
[2019-06-28 05:36] VITALS: BP 140/70
[2019-06-28] MEDS: NS 1,000 ML IV SCH ×2 (05:36→15:16)
[2019-06-28] MEDS: CEPHALEXIN 500 MG CAP PO SCH ×3 (05:36→21:34)
[2019-06-28 07:03] LABS: HEMATOCRIT 28.7 % (42.0-52.0); HEMOGLOBIN 9.4 g/dl (13.5-17.5); MEAN CORPUSCULAR HEMOGLOBIN 32.1 pg (27.0-33.0); MEAN CORPUSCULAR HGB CONC 32.8 g/dl (32.0-36.5); PLATELET COUNT, AUTOMATED 270 10^3/uL (150-450); RED BLOOD COUNT 2.93 10^6/uL (4.30-6.10); WHITE BLOOD COUNT 26.2 10^3/uL (4.0-10.0)
[2019-06-28 07:45] LABS: ALBUMIN 2.8 GM/DL (3.2-5.2); BILIRUBIN,TOTAL 0.5 MG/DL (0.2-1.0); CREATININE FOR GFR 1.6 MG/DL (0.70-1.30); GLOMERULAR FILTRATION RATE 45.9 (>49); MAGNESIUM LEVEL 2.5 MG/DL (1.8-2.4); PHOSPHORUS LEVEL 4.8 MG/DL (2.5-4.9); POTASSIUM SERUM 5.1 MEQ/L (3.5-5.1); TOTAL PROTEIN 8.1 GM/DL (6.4-8.2); URIC ACID 5.1 MG/DL (3.5-7.2)
[2019-06-28] MEDS: PERCOCET 5MG/325MG TAB PO PRN ×3 (07:52→22:29)
[2019-06-28 08:36] LABS: ATYPICAL LYMPH 1 % (0-5); LYMPHOCYTES 30 % (16-44); METAMYELOCYTES 1 % (0-0); MONOCYTES 1 % (0-5); NEUTROPHILS 58 % (28-66); NUCLEATED RED BLOOD CELL 1 % (0-0); PLASMA CELL 5 % (0-0); PLATELET ESTIMATE NORMAL (NORMAL); POLYCHROMASIA 1+
[2019-06-28 08:37] LABS: ANISOCYTOSIS 1+
[2019-06-28] MEDS: CYANOCOBALAMIN 500 MCG TAB PO SCH ×2 (09:59→21:34)
[2019-06-28] MEDS: valACYclovir HCL 500 MG TAB PO SCH (09:59)
[2019-06-28] MEDS: amLODIPine 5 MG TAB PO SCH (10:00)
[2019-06-28] MEDS: FOLIC ACID 1 MG TAB PO SCH (10:00)
[2019-06-28] MEDS: ALLOPURINOL 300 MG TAB PO SCH (10:01)
[2019-06-28] MEDS: COMBIGAN (PATIENT'S OWN MED) OU SCH ×2 (10:02→20:07)
[2019-06-28] MEDS: HEPARIN SOD (PORCINE) 5000 UNITS/ML VIAL SQ SCH ×2 (10:02→21:33)
[2019-06-28] MEDS: LEVEMIR (INSULIN DETEMIR) 1 UNITS/0.01ML SC SCH ×2 (10:02→21:33)
[2019-06-28] MEDS ORDERED: DECA4TAB PO (13:23)
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
--- NOTE | 2019-06-28 13:59 | IPN ---
MEDICAL ONCOLOGY INPATIENT FOLLOWUP DATE OF SERVICE: 06/28/2019 DIAGNOSIS: Plasma cell leukemia on induction VRD day 5, cycle one. CURRENT TREATMENT: Bortezomib subcu days 1, 4, 8, 11. Lenalidomide 25 mg days 1 through 14 q. 21 days (This specialty drug has not yet been delivered. It is an oral, which will be delivered once he is outpatient.) Dexamethasone 20 mg p.o. days 1, 2, 4, 5, 8, 9, 11, 12. Bactrim DS Thursday, Thursday, Thursday, antibiotic prophylaxis. Valtrex 500 mg daily, antibiotic prophylaxis on high-dose steroids. INTERVAL HISTORY: Josh has done well overnight. LDH has risen to 1000, jump from 600, but renal function no worse, currently 1.6 with GFR 46 improved, essentially stable uric acid, phosphorus, calcium, and potassium. WBC 26, reflecting steroids and plasma cell leukemia. I have spoken with [facility]. They are in touch with the family to try to set up a consultation later this month. At the bedside, Josh is accompanied by his . We reviewed the schedule of treatment. As long as his labs are okay tomorrow, he is going to be fine to go home and continue treatment for day 8 on [address] I will place a Decadron prescription outpatient for him to take to start on Thursday for day 8, 9 Decadron. Josh denies any new complaints. No new aches or pains, shortness of breath, fever, chills. IMPRESSION: Plasma cell leukemia with free lambda greater than 80,000, acute renal failure, and anemia. Right fibula fracture. Await reduction. Currently treating mild overlying skin, possible infection versus rash. PLAN: 1. Continue current therapy. 2. Tumor lysis labs tomorrow. 3. Continue IV hydration through today and tomorrow morning. 4. As long as labs stable, the patient clinically well, okay to discharge. 5. Will arrange followup on Thursday for day 8 treatment with bortezomib; I will put in an outpatient prescription for the dexamethasone 20 mg according to the schedule noted above; we are working on the specialty drug, Revlimid. This is processable only once the patient is outpatient, but we are keeping close track of it. All of all of the above discussed with the patient at the bedside. MTDD
[2019-06-28 14:00] VITALS: BP 136/72
[2019-06-28] MEDS ORDERED: ceFAZolin 1GM INJ (J0690 PER 500MG) As Ordered ONE (14:20)
[2019-06-28 18:26] LABS: PHOSPHORUS LEVEL 3.5 MG/DL (2.5-4.9); URIC ACID 4.9 MG/DL (3.5-7.2)
[2019-06-28] MEDS: ACETAMINOPHEN TAB 650MG DOSE (2X325MG) PO PRN (20:06)
[2019-06-28] MEDS: TRAVATAN Z OU SCH (20:07)
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
[2019-06-28] MEDS ORDERED: HumaLOG INSULIN (NovoLOG) PER UNIT SC SCH (21:00)
[2019-06-28] MEDS: RAMELTEON 8 MG TAB (ROZEREM) PO SCH (21:33)
[2019-06-28] MEDS: zolPIDEM TARTRATE 5 MG TAB PO PRN (21:34)
[2019-06-28 22:00] VITALS: BP 129/68
[2019-06-29] MEDS: CEPHALEXIN 500 MG CAP PO SCH (05:40)
[2019-06-29] MEDS: PERCOCET 5MG/325MG TAB PO PRN ×2 (05:41→12:05)
[2019-06-29 06:00] VITALS: BP 143/83
[2019-06-29 06:33] LABS: HEMATOCRIT 30.1 % (42.0-52.0); HEMOGLOBIN 9.9 g/dl (13.5-17.5); MEAN CORPUSCULAR HGB CONC 32.9 g/dl (32.0-36.5); MEAN CORPUSCULAR VOLUME 97.4 fl (80.0-96.0); PLATELET COUNT, AUTOMATED 244 10^3/uL (150-450); RED BLOOD COUNT 3.09 10^6/uL (4.30-6.10); WHITE BLOOD COUNT 15.7 10^3/uL (4.0-10.0)
[2019-06-29 07:02] LABS: ATYPICAL LYMPH 3 % (0-5); LYMPHOCYTES 24 % (16-44); METAMYELOCYTES 3 % (0-0); MONOCYTES 9 % (0-5); NEUTROPHILS 59 % (28-66); PLASMA CELL 2 % (0-0)
[2019-06-29 07:03] LABS: ANISOCYTOSIS 1+
[2019-06-29 07:05] LABS: ALBUMIN 2.9 GM/DL (3.2-5.2); BILIRUBIN,TOTAL 0.5 MG/DL (0.2-1.0); CALCIUM LEVEL 7.9 MG/DL (8.8-10.2); CREATININE FOR GFR 1.48 MG/DL (0.70-1.30); GLOMERULAR FILTRATION RATE 50.2 (>49); MAGNESIUM LEVEL 2.4 MG/DL (1.8-2.4); PHOSPHORUS LEVEL 3.4 MG/DL (2.5-4.9); PLATELET ESTIMATE NORMAL (NORMAL); POTASSIUM SERUM 4.7 MEQ/L (3.5-5.1); TOTAL PROTEIN 7.9 GM/DL (6.4-8.2); URIC ACID 4.9 MG/DL (3.5-7.2)
[2019-06-29] MEDS: NS 1,000 ML IV SCH (07:54)
--- NOTE | 2019-06-29 08:09 | ECHO ---
DATE OF PROCEDURE: 06/28/2019 REFERRING PHYSICIAN: Dr. Marcell Reeves. INDICATION: Chemotherapy. HEIGHT: 188 cm WEIGHT: 97 kg. DIMENSIONS: IVS 1.1 LV 5.4 LVPW 0.9 LA 3.8 Aorta 3.4 IVC 1.8 Left atrial volume index 25 mL per meter square. Mitral E-wave velocity 693 A wave 67 E-prime septal 10.0 E-prime lateral 9.9 FINDINGS: The study is of good technical quality. Patient is in sinus rhythm. Left ventricle is normal size and systolic function with estimated EF 60-65%. Computer calculated ejection fraction was 62%. Right ventricle is normal size and systolic function. Both atria are normal. All four cardiac valves were reasonably well seen and appear normal. No pericardial effusion is noted. Inferior vena cava is normal size. Aortic root is normal. Aortic arch and abdominal aorta were not well seen. Doppler interrogation of the aortic valve reveals no stenosis or insufficiency. There is mild mitral and mild tricuspid insufficiency. Calculated pulmonary artery pressure was in high 40's to low 50's corresponding to moderate pulmonary hypertension. Pulmonic valve is functionally competent. Mitral inflow pattern and tissue Doppler imaging of the mitral annulus reveal normal diastolic function of the ventricle. CONCLUSIONS: 1. Study is of acceptable technically quality. 2. Normal LV size, systolic and diastolic function. 3. Mild mitral and tricuspid insufficiency. 4. Likely normal central venous pressure but at least moderate pulmonary hypertension. COMMENT: Subacute bacterial endocarditis (SBE) prophylaxis is not recommended. Based on this study pulmonary hypertension seems to be less likely due to left sided heat failure and other etiology is probable.
[2019-06-29] MEDS: HumaLOG INSULIN (NovoLOG) PER UNIT SC SCH (08:26)
[2019-06-29] MEDS: FOLIC ACID 1 MG TAB PO SCH (08:27)
[2019-06-29] MEDS: BACTRIM 160MG/800MG DS TAB PO SCH (08:27)
[2019-06-29] MEDS: CYANOCOBALAMIN 500 MCG TAB PO SCH (08:27)
[2019-06-29] MEDS: LEVEMIR (INSULIN DETEMIR) 1 UNITS/0.01ML SC SCH (08:27)
[2019-06-29] MEDS: ALLOPURINOL 300 MG TAB PO SCH (08:27)
[2019-06-29] MEDS: valACYclovir HCL 500 MG TAB PO SCH (08:27)
[2019-06-29 08:30] VITALS: BP 147/81
[2019-06-29] MEDS: HEPARIN SOD (PORCINE) 5000 UNITS/ML VIAL SQ SCH (08:30)
[2019-06-29] MEDS: amLODIPine 5 MG TAB PO SCH (08:30)
[2019-06-29] MEDS: COMBIGAN (PATIENT'S OWN MED) OU SCH (08:31)
[2019-06-29] MEDS ORDERED: ACET1TAB55 PO (10:52)
[2019-06-29] MEDS ORDERED: FOLI1TAB11 PO (10:52)
[2019-06-29] MEDS ORDERED: PERCOCET PO (10:52)
[2019-06-29] MEDS ORDERED: AMBI5TAB PO (10:52)
[2019-06-29] MEDS ORDERED: ZYLO300T6 PO (10:52)
[2019-06-29] MEDS ORDERED: AMLO5TAB6 PO (10:52)
[2019-06-29] MEDS ORDERED: VALA500T5 PO (10:52)
[2019-06-29] MEDS ORDERED: Patient Own Medication OU ×2 (10:52)
[2019-06-29] MEDS ORDERED: COLA100C5 PO (10:52)
[2019-06-29] MEDS ORDERED: VITA500T40 PO (10:52)
[2019-06-29] MEDS ORDERED: CEPH500C PO (10:52)
[2019-06-29] MEDS ORDERED: METH25TAB PO (10:52)
[2019-06-29] MEDS ORDERED: RAME8TAB2 PO (10:52)
[2019-06-29] MEDS ORDERED: SULF1TAB93 PO (10:52)
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
[2019-07-01] MEDS ORDERED: ONDA8TAB7 PO (13:30)
[2019-07-01] MEDS ORDERED: PROC10TA4 PO (13:30)
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
== END 2019-06-29 12:10 | disposition home health service (06) | DRG 562 ==
LOC: M ED 16:02 → EDBD 16:02 → M ED INP 20:31 → M PCU 22:50 → M MS5PR 06-19 20:23
PROVIDERS: ADMIT Internal Medicine; ATTEND Internal Medicine
PROC: 07DR3ZX Extraction of Iliac Bone Marrow, Percutaneous Approach, Diagnostic (ICD-10-PCS; principal; 2019-06-23)
DX: S82.492A Other fracture of shaft of left fibula, initial encounter for closed fracture (principal); G93.41 Metabolic encephalopathy; E88.3 Tumor lysis syndrome; N17.9 Acute kidney failure, unspecified; M62.82 Rhabdomyolysis; C90.10 Plasma cell leukemia not having achieved remission; S82.831A Other fracture of upper and lower end of right fibula, initial encounter for closed fracture; S02.2XXA Fracture of nasal bones, initial encounter for closed fracture; M10.30 Gout due to renal impairment, unspecified site; V48.0XXA Car driver injured in noncollision transport accident in nontraffic accident, initial encounter; D53.9 Nutritional anemia, unspecified; Y92.410 Unspecified street and highway as the place of occurrence of the external cause; E83.52 Hypercalcemia; N18.9 Chronic kidney disease, unspecified; T42.6X5A Adverse effect of other antiepileptic and sedative-hypnotic drugs, initial encounter; S06.0X0A Concussion without loss of consciousness, initial encounter; Y99.8 Other external cause status; I12.9 Hypertensive chronic kidney disease with stage 1 through stage 4 chronic kidney disease, or unspecified chronic kidney disease; R47.1 Dysarthria and anarthria; E78.00 Pure hypercholesterolemia, unspecified; E05.90 Thyrotoxicosis, unspecified without thyrotoxic crisis or storm; E11.9 Type 2 diabetes mellitus without complications; Z96.653 Presence of artificial knee joint, bilateral; M70.31 Other bursitis of elbow, right elbow; Z79.84 Long term (current) use of oral hypoglycemic drugs; Z79.899 Other long term (current) drug therapy; Z98.1 Arthrodesis status

== ENCOUNTER → 2019-08-29 | Outpatient (CLI) | payer MEDICARE, OTHER ==
[~2019-08-29] MED LIST changes: +ACET1TAB55 PO; +AMBI5TAB PO; +AMLO5TAB6 PO; +BACL1TAB8 PO; +BACT800T5 PO; +CARV3.12 PO; +CEPH500C PO; +COLA100C5 PO; +COMB0.2S OU; +DECA4TAB PO; +FOLI1TAB11 PO; +HYDR-4514 PO; +LASI20TA3 PO; +LEVE1INJ5; +NAPR-885 PO; +OMEP-218 PO; +ONDA8TAB7 PO; +PERCOCET PO; +PROC10TA4 PO; +Patient Own Medication OU; +RAME8TAB2 PO; +REVL10CA2 PO; +REVL15CA PO; +SULF1TAB93 PO; +TORS10TA3; +TRAV04OPD OU; +VALA500T5 PO; +VITA500T40 PO; +ZYLO300T6 PO
--- NOTE | 2019-08-29 12:00 | REP ---
CT brain: 08/29/2019. Indication: Headache. Comparison: 06/14/2019. Technique: Unenhanced axial CT images of the brain were obtained from skull base to vertex. Findings: There is no acute intracranial hemorrhage, acute cortical infarction, mass effect, hydrocephalus or significant fluid within the visualized paranasal sinuses/mastoid air cells. Diffuse volume loss is present. There are a few patchy areas of white matter hypoattenuation within the cerebral hemispheres most consistent with sequelae of chronic small vessel disease. Impression: No acute intracranial process. Electronically Signed by Steven Srinivasan DO 08/29/2019 11:51 A
== END ==
LOC: M RAD 11:11
PROVIDERS: ATTEND Internal Medicine Medical Oncology
DX: R51 Headache (principal)

== ENCOUNTER 2019-09-15 07:46 | Outpatient (RCR) | payer MEDICARE, OTHER ==
[2019-07-01 11:00] VITALS: BP 134/72
--- NOTE | 2019-07-04 09:02 | ONC.PHACK ---
CHEMO ADMIN CHECKLIST Order Contains Pt ID: Name, Order on Chemo Order Form?: Yes Order Form Includes ALL: Correct Tx Day, Correct Date, Correct Cycle Number Pt ID on Order form Matches: Pt ID on PHA Label Med on Chemo OrderForm Matches: PHA Label, Med Used for Preparation [facility] Jul 04, 2019 09:02
[2019-07-04 11:10] VITALS: BP 131/70
[2019-07-04 12:05] LABS: HEMATOCRIT 32.6 % (42.0-52.0); HEMOGLOBIN 10.9 g/dl (13.5-17.5); LYMPH % 10.9 % (24.0-44.0); MEAN CORPUSCULAR HEMOGLOBIN 32.9 pg (27.0-33.0); MEAN CORPUSCULAR HGB CONC 33.4 g/dl (32.0-36.5); MEAN CORPUSCULAR VOLUME 98.5 fl (80.0-96.0); NEUTROPHILS # 5.6 10^3/uL (1.8-7.7); NEUTROPHILS % 80.9 % (36.0-66.0); RED BLOOD COUNT 3.31 10^6/uL (4.30-6.10); WHITE BLOOD COUNT 6.9 10^3/uL (4.0-10.0)
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
[2019-07-15 14:33] VITALS: BP 147/81
[2019-07-15 14:45] LABS: HEMATOCRIT 30.6 % (42.0-52.0); LYMPH % 14.9 % (24.0-44.0); MEAN CORPUSCULAR HGB CONC 32.7 g/dl (32.0-36.5); MEAN CORPUSCULAR VOLUME 100.9 fl (80.0-96.0); NEUTROPHILS # 4.4 10^3/uL (1.8-7.7); NEUTROPHILS % 80.9 % (36.0-66.0); RED BLOOD COUNT 3.03 10^6/uL (4.30-6.10); WHITE BLOOD COUNT 5.5 10^3/uL (4.0-10.0)
[2019-07-15 14:56] LABS: CREATININE FOR GFR 1.52 MG/DL (0.90-1.30); GLOMERULAR FILTRATION RATE 48.6 (>49); TOTAL PROTEIN 6.8 GM/DL (6.4-8.3)
--- NOTE | 2019-07-15 15:33 | ONC.PHACK ---
CHEMO ADMIN CHECKLIST Order Contains Pt ID: Name, Order on Chemo Order Form?: Yes Order Form Includes ALL: Correct Tx Day, Correct Date, Correct Cycle Number Pt ID on Order form Matches: Pt ID on PHA Label Med on Chemo OrderForm Matches: PHA Label, Med Used for Preparation [facility] Jul 15, 2019 15:33
[2019-07-15 16:09] LABS: IMMUNOGLOBULIN G 422 MG/DL (681-1648); IMMUNOGLOBULIN M 6.7 MG/DL (40-230); TOTAL PROTEIN 6.8 GM/DL (6.4-8.2)
--- NOTE | 2019-07-18 08:35 | MEDONC ---
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 Currently on induction therapy with VRD. Day 1 cycle two Revlimid being started today due to delivery problems prior while patient was inpatient. Dosing is renal, 10 mg days 1 through 21 q. 28 days. OTHER MEDICAL PROBLEMS: 1. Recent traumatic right fibula open fracture now casted followed by Dr. Hogan of orthopedics. 2. Type 2 diabetes. 3. Hypertension. 4. DJD. 5. Chronic back pain. INTERIM HISTORY: Josh is here for day 1 cycle [address] Dr. Parmar of endocrinology and is on his diabetes medications a little more tightly organized. He had significant hyperglycemia and glucosuria leading to dehydration while hospitalized for his ankle fracture. Glucose today 293, so will give IV fluids but at home apparently morning fasting glucose is now in the low 100s. He had apparently some slight tingling in a few spots on his arms and legs and chest and back after taking the Revlimid for the first time. There is no associated rash. He has no tongue swelling, shortness of breath, cough. I suggest we simply observe this. Sometimes Revlimid can cause a rash not necessarily allergic and we will keep a close eye. REVIEW OF SYSTEMS: CONSTITUTIONAL: No fever, chills, sweats, fatigue; recent gain of 1.5 kg of originally lost weight in the last month. Patient reports good appetite. HEENT: No oral discomfort or mouth or lip ulcers. Hearing normal in both ears. RESPIRATORY: Denies cough, dyspnea, hemoptysis, pleurisy. CARDIOVASCULAR: Denies chest pain, palpitations. MUSCULOSKELETAL: Denies skeletal pain, joint swelling, pain, or erythema. GENITOURINARY: No history of urinary frequency, burning, hematuria, or pain. GASTROINTESTINAL: No nausea, vomiting, constipation, diarrhea, dysphagia, bleeding, or anorexia. SKIN: Denies rash, ecchymosis, petechiae, jaundice. NEUROLOGICAL: No headache, visual difficulty, motor weakness, sensory deficits. No paresthesias. EXTREMITIES: No extremity edema. PHYSICAL EXAMINATION: Vital signs reviewed. Weight is 87.5 kg, BMI 25, temperature 97.6, blood pressure 147/81, heart rate 110, respiratory rate 18, O2 sat 97%. Patient is a well-appearing, well-nourished older gentleman well-groomed. No distress. Respiratory: Clear lungs throughout the lung encinas. No wheezes or rales. Cardiac: S1, S2 regular rate and rhythm. No murmur nor gallop. Abdomen: Soft, nontender, nondistended. No hepatosplenomegaly or mass. Extremities. Right foot casted. Left foot with no edema. Lymph nodes: No submandibular, cervical, supraclavicular or axillary adenopathy bilaterally. Skin: No visible rash over chest arms, extremities, trunk, back. LABS: WBC 5.5, hemoglobin 10, hematocrit 31, platelets 376, ANC 4400, MCV 101. Electrolytes normal creatinine 1.52, GFR 49 improving. Glucose 293. Liver functions normal. Myeloma labs pending. IMPRESSION: IgA lambda plasma cell leukemia diagnosed in May presenting with anemia and acute renal failure, 27% plasma cells on peripheral flow cytometry and free lambda level 82,000, positive Bence-Fonseca urine protein now on VRD with excellent response. WBC currently normal. Free light chain level pending. Renal function improving. Anemia, stable. ECOG performance status 2 limited by a right foot fracture not yet surgically corrected. PLAN: 1. Day 1 cycle two treatment today. 2. Return Thursday for day 4 cycle two and again for days 8 and 11 of this cycle. 3. The patient is scheduled to see Dr. Esquivel at [facility] [place] next week. We look forward to further recommendations. 4. Return to clinic 3 weeks day 1 cycle three treatment. 5. At the patient's request, I extended his Bactrim Thursday, Thursday, Thursday prescription and acyclovir prescription. Electronically Signed by Chelsea Vazquez MD 07/19/2019 05:17 P DD: Chelsea Vazquez MD 07/15/2019 03:23 P DT: [email or web address] 07/18/2019 08:21 A CC: MD Quinton Allison MD
[2019-07-18 11:14] VITALS: BP 135/72
--- NOTE | 2019-07-18 12:57 | ONC.PHACK ---
CHEMO ADMIN CHECKLIST Order Contains Pt ID: Name, Order on Chemo Order Form?: Yes Order Form Includes ALL: Correct Tx Day, Correct Date, Correct Cycle Number Pt ID on Order form Matches: Pt ID on PHA Label Med on Chemo OrderForm Matches: PHA Label, Med Used for Preparation [facility] Jul 18, 2019 12:57
[2019-07-19 10:45] LABS: ALBUMIN % 54.4 % (55.8-66.1); ALPHA-1-GLOBULIN % 5.4 % (2.9-4.9); ALPHA-1-GLOBULINS 0.37 GM/DL (0.17-0.41); ALPHA-2-GLOBULINS 1.35 GM/DL (0.42-0.99); ALPHA-2-GLOBULINS % 19.8 % (7.1-11.8); BETA-1-GLOBULINS % 5.6 % (4.7-7.2); BETA-2-GLOBULINS % 5.6 % (3.2-6.5); GAMMA GLOBULIN % 9.2 % (11.1-18.8)
[2019-07-19 10:46] LABS: BETA-1-GLOBULINS 0.38 GM/DL (0.28-0.60); BETA-2-GLOBULINS 0.38 GM/DL (0.19-0.55); GAMMA GLOBULINS 0.63 GM/DL (0.65-1.58)
[2019-07-20 00:06] LABS: FREE KAPPA LIGHT CHAINS SERUM 12.7 mg/L (3.3-19.4); FREE LAMBDA LIGHT CHAINS SERUM 12715.5 mg/L (5.7-26.3)
--- NOTE | 2019-07-21 08:19 | MEDONC ---
MEDICAL ONCOLOGY FOLLOWUP: DATE OF SERVICE: 07/20/2019. Dr. Franklyn Pérez of [facility] [place] [facility] contacted me yesterday. He concurs with current diagnosis of IgA lambda plasma cell leukemia, concurs with current induction Velcade / Revlimid / dexamethasone treatment. He notes high-risk cytogenetics with 17 P deletion, trisomy one, monosomy 13. Bone marrow biopsy also showed 22% lambda restricted plasma cells on bone marrow. He requested a copy of the bone marrow biopsy report which I have faxed. He recommends for the present continuing cycle two dose adjustment for cycle three which he has a detailed in and-out (switching to weekly Velcade) followed by DFCI return after two additional cycles were read for reevaluation for potential transplant. If transplant not advised, consider transition to "Octaviano protocol" adding daratumumab. Dr. Pérez cautioned he would like to reevaluate the patient first. Provisionally he is potentially a transplant candidate. Electronically Signed by Chelsea Vazquez MD 07/22/2019 06:49 P DD: Chelsea Vazquez MD 07/20/2019 09:47 A DT: [email or web address] 07/21/2019 07:41 A CC:
--- NOTE | 2019-07-22 14:00 | ONC.PHACK ---
CHEMO ADMIN CHECKLIST Order Contains Pt ID: Name, Order on Chemo Order Form?: Yes Order Form Includes ALL: Correct Tx Day, Correct Date, Correct Cycle Number Pt ID on Order form Matches: Pt ID on PHA Label Med on Chemo OrderForm Matches: PHA Label, Med Used for Preparation [facility] Jul 22, 2019 14:00
[2019-07-22 14:11] VITALS: BP 123/72
[2019-07-22 14:41] LABS: HEMOGLOBIN 10.9 g/dl (13.5-17.5); LYMPH % 19.7 % (24.0-44.0); MEAN CORPUSCULAR VOLUME 102.7 fl (80.0-96.0); NEUTROPHILS # 2.6 10^3/uL (1.8-7.7); NEUTROPHILS % 75.4 % (36.0-66.0); RED BLOOD COUNT 3.21 10^6/uL (4.30-6.10); WHITE BLOOD COUNT 3.5 10^3/uL (4.0-10.0)
--- NOTE | 2019-07-22 15:08 | ONC.PHACK ---
CHEMO ADMIN CHECKLIST Order Contains Pt ID: Name, Order on Chemo Order Form?: Yes Order Form Includes ALL: Correct Tx Day, Correct Date, Correct Cycle Number Pt ID on Order form Matches: Pt ID on PHA Label Med on Chemo OrderForm Matches: PHA Label, Med Used for Preparation [facility] Jul 22, 2019 15:08
[2019-07-25 13:58] VITALS: BP 127/69
--- NOTE | 2019-07-25 15:12 | ONC.PHACK ---
CHEMO ADMIN CHECKLIST Order Contains Pt ID: Name, Order on Chemo Order Form?: Yes Order Form Includes ALL: Correct Tx Day, Correct Date, Correct Cycle Number Pt ID on Order form Matches: Pt ID on PHA Label Med on Chemo OrderForm Matches: PHA Label, Med Used for Preparation [facility] Jul 25, 2019 15:12
[2019-08-08 13:27] VITALS: BP 128/73
[2019-08-08 13:40] LABS: BASO # 0.1 10^3/uL (0.0-0.2); BASO % 1.4 % (0.0-1.0); EOS % 0.6 % (0.0-3.0); HEMATOCRIT 33.2 % (42.0-52.0); HEMOGLOBIN 10.5 g/dl (13.5-17.5); LYMPH # 1.2 10^3/uL (1.5-5.0); LYMPH % 24.4 % (24.0-44.0); MEAN CORPUSCULAR HEMOGLOBIN 32.6 pg (27.0-33.0); MEAN CORPUSCULAR HGB CONC 31.6 g/dl (32.0-36.5); MEAN CORPUSCULAR VOLUME 103.1 fl (80.0-96.0); MONO # 0.3 10^3/uL (0.0-0.8); MONO % 5.2 % (0.0-5.0); NEUTROPHILS # 3.4 10^3/uL (1.5-8.5); PLATELET COUNT, AUTOMATED 428 10^3/uL (150-450); RED BLOOD COUNT 3.22 10^6/uL (4.30-6.10)
[2019-08-08 14:00] LABS: ALBUMIN 3.2 GM/DL (3.2-5.2); ALT/SGPT 26 U/L (12-78); BILIRUBIN,TOTAL 0.5 MG/DL (0.2-1.0); BLOOD UREA NITROGEN 14 MG/DL (7-18); CALCIUM LEVEL 9.2 MG/DL (8.8-10.2); CARBON DIOXIDE LEVEL 27 MEQ/L (21-32); CHLORIDE LEVEL 108 MEQ/L (98-107); CREATININE FOR GFR 1.17 MG/DL (0.70-1.30); GLOMERULAR FILTRATION RATE > 60.0 (>49); GLUCOSE, FASTING 214 MG/DL (70-100); POTASSIUM SERUM 4.5 MEQ/L (3.5-5.1); SODIUM LEVEL 140 MEQ/L (136-145); TOTAL PROTEIN 7.1 GM/DL (6.4-8.2)
[2019-08-08 14:31] LABS: IMMUNOGLOBULIN A 27.7 MG/DL (70-400); IMMUNOGLOBULIN G 330 MG/DL (681-1648); LDH LACTATE DEHYDROGENASE 235 U/L (87-241); TOTAL PROTEIN 6.7 GM/DL (6.4-8.2)
--- NOTE | 2019-08-08 15:03 | MEDONC ---
MEDICAL ONCOLOGY FOLLOWUP DATE OF SERVICE: 08/08/2019 DIAGNOSIS: IgA lambda plasma cell leukemia diagnosed in May 2019 presenting with anemia, acute renal failure, 27% plasma cells on peripheral flow cytometry, free lambda titer 82,000, Bence Fonseca urine protein. Now on induction VRD. Transitioning to 28-day cycle as of cycle three. CURRENT THERAPY: Bortezomib 1.3 mg per meter square days 1, 8, 15 as of cycle three, Revlimid 15 mg p.o. daily as of cycle three, dexamethasone 20 mg weekly. PRIOR TREATMENT: VRD on a 21-day schedule with Velcade given days 1, 4, 8 and 11 and Revlimid dosed at 10 mg, 06/24/2019 - 08/07/2019. OTHER MEDICAL PROBLEMS: Type 2 diabetes, right ankle fracture, hypertension, degenerative joint disease, chronic back pain. INTERVAL HISTORY: Josh saw Franklyn Esquivel MD at [facility] [place] toward the end of cycle two. Dr. Esquivel recommended transitioning to a 28-day schedule treatment, increasing Revlimid to 15 mg days 1-21, and giving Velcade days 1, 8, 15 and 22 with IV hydration to minimize neuropathy. He further recommended 1.3 mg/kg dose. Josh is taking 325 mg of aspirin currently as anticoagulation. He has seen Dr. Hogan of orthopedics and ORIF has been indefinitely delayed, as he is doing well with the boot, though from Dr. Esquivel's standpoint, this could be done at any point now that he has demonstrated response to therapy and is stable. Josh reports doing much better with his sugars. He is much more mobile. His appetite is good. He is eating well. He has gained a few pounds. The 15 mg Revlimid dose had not yet gone through, in order to avoid starting and stopping treatment, I recommended an additional week hold before starting cycle three while we order and preauthorize the 15 mg dose. Meanwhile, I will follow up today's myeloma labs. REVIEW OF SYSTEMS: Pertinent positives and negatives as noted above. Remainder of 12 system review negative. PHYSICAL EXAMINATION: Deferred. Vital signs reviewed. Weight is 89 kg, temperature 98, blood pressure 128/73, heart rate 80, respiratory 18, O2 sat 94%. LABORATORIES: WBC 5, hemoglobin 10.5, hematocrit 33, platelets 428. ANC 3400, CMP and myeloma labs pending. IMPRESSION: 1. IgA lambda plasma cell leukemia with baseline free lambda count 40375, 27% plasma cells on peripheral blood now status post two cycles with VRD, tolerating treatment well. Free lambda from 82,000-12,000 following cycle one. Today's results pending. IMPRESSION AND PLAN: 1. Increase Revlimid to 15 mg days 1 through 21, and dose Velcade days 1, 8, 15 and 22; switch to 28 days cycle; return to clinic in 1 week to begin cycle three number. 2. Brief clinical exam on day one cycle three. 3. Overall plan is to continue current therapy. The patient sees Dr. Esquivel again in August to be reconsidered for possible transplant or augmentation of therapy. Time statement: 15 minutes [id number] with the patient, more than 50% involved in counseling, reviewing current regimen and plan, as detailed above. Electronically Signed by Chelsea Vazquez MD 08/10/2019 08:38 A DD: Chelsea Vazquez MD 08/08/2019 01:59 P DT: [email or web address] 08/08/2019 02:55 P CC: MD Franklyn Tyson MD
[2019-08-09 09:53] LABS: ALBUMIN 3.64 GM/DL (3.29-5.55); ALBUMIN % 54.4 % (55.8-66.1); ALPHA-1-GLOBULIN % 5.9 % (2.9-4.9); ALPHA-2-GLOBULINS 1.35 GM/DL (0.42-0.99); ALPHA-2-GLOBULINS % 20.1 % (7.1-11.8); BETA-1-GLOBULINS 0.36 GM/DL (0.28-0.60); BETA-1-GLOBULINS % 5.3 % (4.7-7.2); BETA-2-GLOBULINS 0.36 GM/DL (0.19-0.55); BETA-2-GLOBULINS % 5.4 % (3.2-6.5); GAMMA GLOBULIN % 8.9 % (11.1-18.8)
[2019-08-10 00:06] LABS: FREE KAPPA LIGHT CHAINS SERUM 9.8 mg/L (3.3-19.4); FREE LAMBDA LIGHT CHAINS SERUM 14528.9 mg/L (5.7-26.3)
[2019-08-15 10:39] LABS: BASO # 0.1 10^3/uL (0.0-0.2); BASO % 1.2 % (0.0-1.0); EOS # 0.1 10^3/uL (0.0-0.5); EOS % 0.7 % (0.0-3.0); HEMATOCRIT 35.7 % (42.0-52.0); HEMOGLOBIN 11.1 g/dl (13.5-17.5); LYMPH # 2.3 10^3/uL (1.5-5.0); LYMPH % 23.1 % (24.0-44.0); MEAN CORPUSCULAR HEMOGLOBIN 32.6 pg (27.0-33.0); MEAN CORPUSCULAR HGB CONC 31.1 g/dl (32.0-36.5); MEAN CORPUSCULAR VOLUME 104.7 fl (80.0-96.0); MONO % 10.3 % (0.0-5.0); NEUTROPHILS # 6.3 10^3/uL (1.5-8.5); NEUTROPHILS % 64.3 % (36.0-66.0); PLATELET COUNT, AUTOMATED 352 10^3/uL (150-450); RED BLOOD COUNT 3.41 10^6/uL (4.30-6.10); WHITE BLOOD COUNT 9.7 10^3/uL (4.0-10.0)
[2019-08-15 10:46] VITALS: BP 101/58
[2019-08-15 11:11] LABS: CREATININE FOR GFR 1.35 MG/DL (0.70-1.30); GLOMERULAR FILTRATION RATE 55.8 (>49); POTASSIUM SERUM 4.2 MEQ/L (3.5-5.1)
[2019-08-15 11:12] LABS: ALBUMIN 3.2 GM/DL (3.2-5.2); BILIRUBIN,TOTAL 0.7 MG/DL (0.2-1.0); CALCIUM LEVEL 9.1 MG/DL (8.8-10.2); TOTAL PROTEIN 7.4 GM/DL (6.4-8.2)
[2019-08-15] MEDS: SODIUM CHLORIDE 0.9% INJ 10 ML SYR IV PRN (12:23)
--- NOTE | 2019-08-16 10:33 | MEDONC ---
DATE OF SERVICE: 08/15/2019 REASON FOR VISIT: Followup of plasma cell leukemia. HISTORY OF PRESENT ILLNESS: This gentleman has a history of IgA lambda plasma cell leukemia diagnosed in May 2019, presenting with anemia, acute renal failure with 27% plasma cells on the peripheral blood flow cytometry, free lambda titer over 82,000, Bence Fonseca protein in the urine. He is currently receiving induction chemotherapy of VRd and he is transitioning to a 28-day cycle, and today is the beginning of cycle three. He has started the REVLIMID and was increasing the dose from 10 mg to 15 mg per day. OTHER MEDICAL PROBLEMS: Type 2 diabetes. Right ankle fracture. Hypertension. PHYSICAL EXAMINATION: Normal vitals. Chest shows normal breath sounds. No wheezing, rhonchi or crackles. Heart exam revealed normal S1 and S2 with no murmur. Abdomen showed no tenderness or rigidity. No organomegaly. LABORATORIES: Labs showed white blood cells 9.7, hemoglobin of 11.1 , platelet count of 352. Chemistry showed sodium of 140, potassium 4.2, BUN of 18, creatinine 1.35, serum calcium 9.1 Normal liver functions. IMPRESSION: 1. IgA lambda plasma cell leukemia currently on VRd, has increased the REVLIMID to 15 mg, also to increase the valcad to days 1, 8, 15, and 22. He is going to see his doctor at [facility] with possible transplantation or augmentation of therapy. The patient is going to be seen next week with another CBC, CMP for further chemotherapy. Electronically Signed by Joss Chambers MD 08/17/2019 02:28 P DD: Joss Chambers MD 08/15/2019 11:33 A DT: [email or web address] 08/16/2019 10:14 A CC:
[2019-08-22 10:00] LABS: BASO # 0.1 10^3/uL (0.0-0.2); BASO % 0.3 % (0.0-1.0); EOS # 0.4 10^3/uL (0.0-0.5); EOS % 2.6 % (0.0-3.0); HEMATOCRIT 36.4 % (42.0-52.0); HEMOGLOBIN 11.7 g/dl (13.5-17.5); LYMPH # 3.4 10^3/uL (1.5-5.0); LYMPH % 20.8 % (24.0-44.0); MEAN CORPUSCULAR HEMOGLOBIN 32.4 pg (27.0-33.0); MEAN CORPUSCULAR HGB CONC 32.1 g/dl (32.0-36.5); MEAN CORPUSCULAR VOLUME 100.8 fl (80.0-96.0); MONO % 18.5 % (0.0-5.0); NEUTROPHILS # 9.1 10^3/uL (1.5-8.5); NEUTROPHILS % 55.4 % (36.0-66.0); PLATELET COUNT, AUTOMATED 245 10^3/uL (150-450); RED BLOOD COUNT 3.61 10^6/uL (4.30-6.10); WHITE BLOOD COUNT 16.5 10^3/uL (4.0-10.0)
[2019-08-22 10:11] LABS: MONO # 3.1 10^3/uL (0.0-0.8)
[2019-08-22 10:21] LABS: ALBUMIN 3.1 GM/DL (3.2-5.2); BILIRUBIN,TOTAL 0.5 MG/DL (0.2-1.0); CALCIUM LEVEL 9.4 MG/DL (8.8-10.2); CREATININE FOR GFR 1.87 MG/DL (0.70-1.30); GLOMERULAR FILTRATION RATE 38.3 (>49); POTASSIUM SERUM 4.3 MEQ/L (3.5-5.1); TOTAL PROTEIN 8.1 GM/DL (6.4-8.2)
[2019-08-22 10:35] VITALS: BP 116/72
--- NOTE | 2019-08-24 10:03 | MEDONC ---
MEDICAL ONCOLOGY FOLLOWUP/TREATMENT VISIT: DATE OF SERVICE: 08/22/2019 DIAGNOSES: 1. 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 Now on induction VRD. Day 1 cycle one treatment 06/24/2019. Today will be day 8 cycle three. CURRENT THERAPY: 1. Bortezomib 1.3 mg per meter squared days 1, 8,15 and 22. 2. Revlimid 15 mg p.o. daily days 1-21. 3. Dexamethasone 20 mg weekly. 4. Cycle length 28 days. 5. Current plan is to complete third cycle followed by re-evaluation at [facility] with Dr. Franklyn Esquivel 09/12/2019 PRIOR TREATMENT: VRD 21-day schedule with Velcade given days 1,4,8, and 11, Revlimid dosed at 10 mg days 1-21 06/24/2019 - 08/07/2019. OTHER MEDICAL PROBLEMS: Type 2 diabetes, right ankle fracture, hypertension, DJD, chronic back pain. INTERVAL HISTORY: Josh is here for day 8 treatment. He reports doing pretty well. He is using a walker at home. His right ankle fixation has been indefinitely put on hold. He is scheduled to see Dr. Esquivel 09/12/2019. His glucose is under overall better control but today's is somewhat higher. He has no active new complaints. His appetite is good. He is eating and drinking well. He denies any new musculoskeletal pain. REVIEW OF SYSTEMS: In addition to pertinent positives and negatives above, the patient denies fevers, chills, palpitations, chest pain, shortness of breath. Ear-ringing, headache, visual disturbance, numbness or tingling in his hands or feet to low back or hip pain, leg swelling or cramping. Remainder of 12-system review negative. PHYSICAL EXAMINATION: Weight 84 kg, temperature 97.6, blood pressure 116/72, heart rate 82, respiratory 18, O2 sat 95%. Patient is a tall well-groomed, normal weight older gentleman in no distress. HEENT: No scleral icterus. Oropharynx clear. Moist pink mucous membranes. RESPIRATORY: Clear lungs to auscultation bilaterally, anteriorly and posteriorly. No wheezes, rubs or rales. CARDIAC: S1, S2, 1/6 systolic murmur. Regular rate and rhythm. ABDOMEN: Abdomen is soft, nontender, nondistended, no hepatosplenomegaly or mass. EXTREMITIES. Right ankle in boot. No palpable pitting or edema. No visible asymmetry. Left leg without edema or pitting. LYMPH NODES: No palpable submandibular, cervical, supraclavicular or axillary adenopathy bilaterally. SKIN: No petechiae, ecchymoses or rash. PSYCH: The patient is alert and oriented to person, place and time. Speech is fluent. Affect appropriate. LABS: WBC 16.5, hemoglobin 11.7, hematocrit 36.4, platelets 245, MCV 100. Electrolytes normal. BUN 20, creatinine 1.87, GFR 38. This is a drop versus 08/15/2019 when creatinine was 1.3, GFR 56. Glucose 263, albumin 3.1. Myeloma labs from 08/08/2019, IgA 27, IgG 330, IgM 7, free kappa 9.8, free lambda 14,528, kappa lambda ratio 0. Of note, free lambda 07/15/2019 was 12,715. IMPRESSION: 1. 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 Today is day 8 cycle three. ECOG performance status 1 limited by ankle fracture in boot. 2. Mild new acute renal insufficiency with a component of azotemia in the setting of persistent intermittent hyperglycemia bears close followup. 3. Mild uptick in free lambda as of day 1 cycle three also bears watching closely. PLAN: 1. Day 8 treatment today. 2. Return in 2 and again in 3 weeks for days 15 and 22 bortezomib 3. Clinical re-evaluation day 22 cycle three with labs to include free light chains, SPEP in addition to usual labs. Electronically Signed by Chelsea Vazquez MD 08/24/2019 07:30 P DD: Chelsea Vazquez MD 08/22/2019 05:00 P DT: [email or web address] 08/24/2019 09:45 A CC: MD Franklyn Tyson MD
[2019-08-29 10:10] LABS: BASO # 0.1 10^3/uL (0.0-0.2); BASO % 0.4 % (0.0-1.0); EOS # 0.4 10^3/uL (0.0-0.5); EOS % 2.8 % (0.0-3.0); HEMATOCRIT 36.4 % (42.0-52.0); HEMOGLOBIN 11.5 g/dl (13.5-17.5); LYMPH # 3.7 10^3/uL (1.5-5.0); MEAN CORPUSCULAR HEMOGLOBIN 31.9 pg (27.0-33.0); MEAN CORPUSCULAR HGB CONC 31.6 g/dl (32.0-36.5); MEAN CORPUSCULAR VOLUME 100.8 fl (80.0-96.0); MONO % 20.9 % (0.0-5.0); NEUTROPHILS # 7.5 10^3/uL (1.5-8.5); PLATELET COUNT, AUTOMATED 173 10^3/uL (150-450); RED BLOOD COUNT 3.61 10^6/uL (4.30-6.10); WHITE BLOOD COUNT 15.2 10^3/uL (4.0-10.0)
[2019-08-29 10:20] VITALS: BP 119/67
[2019-08-29 10:25] LABS: MONO # 3.2 10^3/uL (0.0-0.8)
[2019-08-29 10:30] LABS: ALBUMIN 2.9 GM/DL (3.2-5.2); BILIRUBIN,TOTAL 0.6 MG/DL (0.2-1.0); CALCIUM LEVEL 9.6 MG/DL (8.8-10.2); CREATININE FOR GFR 1.49 MG/DL (0.70-1.30); GLOMERULAR FILTRATION RATE 49.8 (>49); POTASSIUM SERUM 4.5 MEQ/L (3.5-5.1); TOTAL PROTEIN 8.4 GM/DL (6.4-8.2)
--- NOTE | 2019-08-29 13:47 | ONC.PHACK ---
CHEMO ADMIN CHECKLIST Order Contains Pt ID: Name, Order on Chemo Order Form?: Yes Order Form Includes ALL: Correct Tx Day, Correct Date, Correct Cycle Number Pt ID on Order form Matches: Pt ID on PHA Label Med on Chemo OrderForm Matches: PHA Label, Med Used for Preparation [facility] Aug 29, 2019 13:47
[2019-08-29 14:10] VITALS: BP 130/67
[2019-08-29] MEDS: SODIUM CHLORIDE 0.9% INJ 10 ML SYR IV PRN (14:11)
[2019-09-07 13:21] VITALS: BP 122/71
[2019-09-07 13:32] LABS: BASO # 0.1 10^3/uL (0.0-0.2); BASO % 0.6 % (0.0-1.0); EOS # 0.2 10^3/uL (0.0-0.5); EOS % 1.9 % (0.0-3.0); HEMATOCRIT 34.5 % (42.0-52.0); HEMOGLOBIN 10.9 g/dl (13.5-17.5); LYMPH # 3.5 10^3/uL (1.5-5.0); LYMPH % 32.7 % (24.0-44.0); MEAN CORPUSCULAR HEMOGLOBIN 31.7 pg (27.0-33.0); MEAN CORPUSCULAR HGB CONC 31.6 g/dl (32.0-36.5); MEAN CORPUSCULAR VOLUME 100.3 fl (80.0-96.0); MONO % 34.4 % (0.0-5.0); NEUTROPHILS # 2.7 10^3/uL (1.5-8.5); PLATELET COUNT, AUTOMATED 145 10^3/uL (150-450); RED BLOOD COUNT 3.44 10^6/uL (4.30-6.10); WHITE BLOOD COUNT 10.6 10^3/uL (4.0-10.0)
[2019-09-07 13:34] LABS: MONO # 3.7 10^3/uL (0.0-0.8)
[2019-09-07 13:57] LABS: ALBUMIN 3.1 GM/DL (3.2-5.2); ALT/SGPT 24 U/L (12-78); BILIRUBIN,TOTAL 0.8 MG/DL (0.2-1.0); BLOOD UREA NITROGEN 26 MG/DL (7-18); CALCIUM LEVEL 10.5 MG/DL (8.8-10.2); CARBON DIOXIDE LEVEL 27 MEQ/L (21-32); CHLORIDE LEVEL 101 MEQ/L (98-107); CREATININE FOR GFR 3.05 MG/DL (0.70-1.30); GLOMERULAR FILTRATION RATE 21.8 (>49); GLUCOSE, FASTING 287 MG/DL (70-100); POTASSIUM SERUM 4.7 MEQ/L (3.5-5.1); SODIUM LEVEL 136 MEQ/L (136-145); TOTAL PROTEIN 9.6 GM/DL (6.4-8.2)
--- NOTE | 2019-09-07 14:23 | ONC.PHACK ---
CHEMO ADMIN CHECKLIST Order Contains Pt ID: Name, Order on Chemo Order Form?: Yes Order Form Includes ALL: Correct Tx Day, Correct Date, Correct Cycle Number Pt ID on Order form Matches: Pt ID on PHA Label Med on Chemo OrderForm Matches: PHA Label, Med Used for Preparation [facility] Sep 07, 2019 14:23
[2019-09-07 14:54] LABS: IMMUNOGLOBULIN A 7.9 MG/DL (70-400); IMMUNOGLOBULIN G 214 MG/DL (681-1648)
[2019-09-07 17:21] LABS: IMMUNOGLOBULIN M < 5.3 MG/DL (40-230)
[2019-09-08 08:22] LABS: TOTAL PROTEIN 9.6 GM/DL (6.4-8.2)
[2019-09-08 13:53] LABS: ALBUMIN 3.88 GM/DL (3.29-5.55); ALBUMIN % 40.4 % (55.8-66.1); ALPHA-1-GLOBULIN % 5.1 % (2.9-4.9); ALPHA-1-GLOBULINS 0.49 GM/DL (0.17-0.41); ALPHA-2-GLOBULINS 1.65 GM/DL (0.42-0.99); ALPHA-2-GLOBULINS % 17.2 % (7.1-11.8); BETA-1-GLOBULINS 0.48 GM/DL (0.28-0.60); BETA-2-GLOBULINS 0.52 GM/DL (0.19-0.55); BETA-2-GLOBULINS % 5.4 % (3.2-6.5); GAMMA GLOBULIN % 26.9 % (11.1-18.8); GAMMA GLOBULINS 2.58 GM/DL (0.65-1.58)
[2019-09-10 00:07] LABS: FREE KAPPA LIGHT CHAINS SERUM 33.5 mg/L (3.3-19.4); FREE LAMBDA LIGHT CHAINS SERUM Comment: mg/L (5.7-26.3); KAPPA/LAMBDA RATIO SERUM <0.01 (0.26-1.65)
[2019-09-12 10:26] VITALS: BP 165/87
[2019-09-12 10:43] LABS: BASO # 0.1 10^3/uL (0.0-0.2); BASO % 0.4 % (0.0-1.0); EOS # 0.2 10^3/uL (0.0-0.5); EOS % 1.2 % (0.0-3.0); HEMOGLOBIN 9.8 g/dl (13.5-17.5); LYMPH % 19.3 % (24.0-44.0); MEAN CORPUSCULAR HEMOGLOBIN 32.3 pg (27.0-33.0); MEAN CORPUSCULAR HGB CONC 32.7 g/dl (32.0-36.5); MONO % 53.5 % (0.0-5.0); NEUTROPHILS # 3.1 10^3/uL (1.5-8.5); NEUTROPHILS % 20.3 % (36.0-66.0); PLATELET COUNT, AUTOMATED 123 10^3/uL (150-450); RED BLOOD COUNT 3.03 10^6/uL (4.30-6.10); WHITE BLOOD COUNT 15.5 10^3/uL (4.0-10.0)
[2019-09-12 10:44] LABS: MONO # 8.3 10^3/uL (0.0-0.8)
[2019-09-12 11:19] LABS: ALBUMIN 2.7 GM/DL (3.2-5.2); BILIRUBIN,TOTAL 0.6 MG/DL (0.2-1.0); CALCIUM LEVEL 10.7 MG/DL (8.8-10.2); CREATININE FOR GFR 3.08 MG/DL (0.70-1.30); GLOMERULAR FILTRATION RATE 21.5 (>49); POTASSIUM SERUM 3.9 MEQ/L (3.5-5.1); TOTAL PROTEIN 9.8 GM/DL (6.4-8.2)
--- NOTE | 2019-09-12 16:03 | MEDONC ---
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 CURRENT THERAPY: RVD day 1 cycle 1 06/24/2019; day 1 cycle 3 08/14/2019. In discussion with Dr. Franklyn Esquivel, [facility], current plan to switch to ISABEL-KRD beginning this week, comprising daratumumab, carfilzomib/lenalidomide/dexamethasone. INTERVAL HISTORY: Josh is here accompanied by his brother, En, to discuss the change in treatment and the rationale. Unfortunately, Josh's for renal insufficiency is most likely a harbinger of treatment failure on VRD. Free lambda 09/07/2019 11,000, essentially plateaued since mid June, M-spike 09/07/2019 2.4 grams, up from 0.4 in June and July, and baseline 1.5 in May. I discussed the ISABEL-KRd regimen, risks, benefits, side effects, schedule and we ironed out the dexamethasone dosing and timing. Carfilzomib 20 mg/m2 days 1, 2 cycle 1. Carfilzomib 27 mg/m2 days 8, 9, 15, 15, cycle 1 , and on all subsequent days 1, 2, 8, 9, 15, and 16. Dexamethasone 20 mg p.o. days 1, 2, 8, 9, 15, 16 prior carfilzomib. Daratumumab 60 mg/kg days 1, 8, 15, 22 on cycles 1-2; days 1, 15 on cycle 3 through 6. I reviewed risks, benefits, side effects including but not limited to risk of hypertension, fatigue, nausea, infusion reaction, hypotension, fluid retention, allergic reaction, neutropenia, thrombocytopenia. With respect lenalidomide typically this would be 20 mg days 1-21; given Josh's to current renal insufficiency I am recommending holding this for the time being. I will further discuss it with Dr. Esquivel. Josh and En both asked several astute questions all of which I answered to their apparent satisfaction. 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 Significant renal insufficiency, GFR currently 22. Progressive anemia, hemoglobin currently 9.8. PLAN: 1. Return to clinic 09/14/2019 to begin daratumumab-KRd. 2. 1 week interval followup on the with Dr. Duke to assess tolerability. 3. 2 week interval followup with myself on day 15. 4. Hold of lenalidomide pending discussion with Dr. Esquivel given renal insufficiency. 5. We discussed Josh's glucose management. He is seeing spikes in blood sugar on any day he has takes dexamethasone. Currently, he has an insulin sliding scale to use. I cautioned he will be seeing significant glucose spikes on this new regimen which involves dexamethasone on 2 days 3 weeks out of 4, so the dexamethasone is decreased down to 20 mg from 40 but given on two consecutive days for a total of 40. TIME STATEMENT: 40 minutes [id number] with the patient; more than 50% involving counseling, answering questions regarding the new regimen as outlined above. Electronically Signed by Chelsea Vazquez MD 09/12/2019 06:15 P DD: Chelsea Vazquez MD 09/12/2019 03:34 P DT: [email or web address] 09/12/2019 03:47 P CC: MD Franklyn Tyson MD
[2019-09-14 09:33] VITALS: BP 135/76
[2019-09-14 09:33] LABS: BASO # 0.1 10^3/uL (0.0-0.2); BASO % 0.5 % (0.0-1.0); EOS # 0.2 10^3/uL (0.0-0.5); EOS % 1.2 % (0.0-3.0); HEMATOCRIT 31.1 % (42.0-52.0); HEMOGLOBIN 9.7 g/dl (13.5-17.5); LYMPH # 4.5 10^3/uL (1.5-5.0); LYMPH % 29.6 % (24.0-44.0); MEAN CORPUSCULAR HEMOGLOBIN 31.5 pg (27.0-33.0); MEAN CORPUSCULAR HGB CONC 31.2 g/dl (32.0-36.5); MONO # 7.2 10^3/uL (0.0-0.8); MONO % 47.1 % (0.0-5.0); NEUTROPHILS # 2.3 10^3/uL (1.5-8.5); PLATELET COUNT, AUTOMATED 102 10^3/uL (150-450); RED BLOOD COUNT 3.08 10^6/uL (4.30-6.10); WHITE BLOOD COUNT 15.3 10^3/uL (4.0-10.0)
[2019-09-14 09:58] LABS: CREATININE FOR GFR 2.88 MG/DL (0.70-1.30)
[2019-09-14 09:59] LABS: ALBUMIN 2.9 GM/DL (3.2-5.2); BILIRUBIN,TOTAL 0.5 MG/DL (0.2-1.0); CALCIUM LEVEL 12.3 MG/DL (8.8-10.2); GLOMERULAR FILTRATION RATE 23.3 (>49); POTASSIUM SERUM 3.8 MEQ/L (3.5-5.1); TOTAL PROTEIN 10.7 GM/DL (6.4-8.2)
[~2019-09-15] VITALS: Ht 185.4 cm; Wt 83.1 kg
[~2019-09-15 07:46] MED LIST changes: +ACETAMINOPHEN TAB 650MG DOSE (2X325MG) PO ONE; +BORTEZOMIB SC ONE; +BORTEZOMIB for SC use (VELCADE) SC ONE; +CARFILZOMIB IV ONE; +COMB0.2S OD; -COMB0.2S OU; +D5W IV ONE; +DARATUMUMAB IV ONE; +DILUENT IV ONE; +FAMOTIDINE IV ONE; -LEVE1INJ5; +LEVE1INJ5 SQ; +NS 1,000 ML IV ONE; +NS 500 ML IV ONE; +NS IV ONE; +PALONOSETRON 0.25MG/5ML VIAL (ALOXI)(J2469 PER 25MCG) (FOR ONCOLOGY) IV ONE; +PROCHLORPERAZINE 5 MG TAB (S0183) PO ONE; +SODIUM CHLORIDE 0.9% 1000ML IV ONE; +diphenhydrAMINE INJ 50MG/ML VIAL (J1200) IV ONE
[2019-09-15] MEDS ORDERED: ACETAMINOPHEN TAB 650MG DOSE (2X325MG) PO ONE (08:00)
[2019-09-15] MEDS ORDERED: PROCHLORPERAZINE 5 MG TAB (S0183) PO ONE (08:00)
[2019-09-15] MEDS ORDERED: FAMOTIDINE IV ONE (08:00)
[2019-09-15] MEDS ORDERED: DILUENT IV ONE (08:00)
[2019-09-15] MEDS ORDERED: DARATUMUMAB IV ONE ×3 (09:00)
[2019-09-15] MEDS ORDERED: NS IV ONE ×3 (09:00)
[2019-09-15] MEDS ORDERED: diphenhydrAMINE INJ 50MG/ML VIAL (J1200) IV ONE (09:00)
[2019-09-15] MEDS ORDERED: [UNRECOGNIZED DRUG - CODE] PO (11:45)
[2019-09-15] MEDS ORDERED: INSUHUMDS SC (11:45)
[2019-09-15] MEDS ORDERED: BACT800T5 PO (11:45)
[2019-09-15] MEDS ORDERED: BACL10TA2 PO (11:45)
[2019-09-15] MEDS ORDERED: ACET1TAB55 PO (11:45)
[2019-09-15] MEDS ORDERED: ZYLO300T6 PO (11:45)
[2019-09-15] MEDS ORDERED: AMLO5TAB6 PO (11:45)
[2019-09-15] MEDS ORDERED: ATOR1TAB19 PO (11:45)
[2019-09-15] MEDS ORDERED: FOLI1TAB11 PO (11:45)
[2019-09-15] MEDS ORDERED: TORS10TA3 PO (11:45)
[2019-09-15] MEDS ORDERED: ZOLP12.515 PO (11:45)
[2019-09-15] MEDS ORDERED: COLA100C5 PO (11:45)
[2019-09-15] MEDS ORDERED: CARFILZOMIB IV ONE ×3 (12:00)
[2019-09-15] MEDS ORDERED: D5W IV ONE ×3 (12:00)
--- NOTE | 2019-09-19 09:27 | MEDONC ---
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 CURRENT THERAPY: RVD day 1 cycle 1 06/24/2019; day 1 cycle 3 08/14/2019. The patient was seen and discussed with Dr. Franklyn Esquivel, [facility] and plan to switch on to ISABEL-KRd beginning this week comprising daratumumab, carfilzomib, lenalidomide, and dexamethasone. On the previous event, Dr. Vazquez discussed above the new treatment plan and agreed to switch on to the new treatment regimen. 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 Significant renal insufficiency, GFR currently 22. Progressive anemia, hemoglobin currently of 9.8. PLAN: 1. The patient return to clinic to begin the new treatment with daratumumab-KRd. The patient signed the consent to start on new treatment. 2. The patient will have followup on the with Dr. Duke to assess tolerability. 3. 2 week interval followup with Dr. Vazquez on day 15. 4. Hold Revlimid because of renal insufficiency and to start after discussion with Dr. Esquivel to check whether he can have Revlimid. 5. The patient was discussed about the management of his high blood sugar. His glucose will increase because of dexamethasone. Electronically Signed by Charlotte Kelley MD 09/20/2019 01:53 P DD: Charlotte Kelley MD 09/14/2019 02:57 P DT: jah 09/19/2019 09:07 A CC:
--- NOTE | 2019-09-19 10:56 | MEDONC ---
MEDICAL ONCOLOGY FOLLOWUP / TREATMENT VISIT DATE OF SERVICE: 09/07/2019 DIAGNOSES: 1. IgA lambda plasma cell leukemia diagnosed May 2019 presenting with anemia, acute renal failure, 27% plasma cell on peripheral flow, free lambda 82,000, Bence-Fonseca protein in urine. Now on induction VRD day one cycle one 06/24/2019; today will be day 22 cycle three. CURRENT THERAPY Bortezomib 1.3 mg per m2 days 1, 8, 15, 22; Revlimid 15 mg p.o. daily days one through 21; dexamethasone 20 mg weekly; cycle length 28 days/ CURRENT PLAN: Re-evaluation at [facility] with Franklyn Esquivel MD 09/12/2019 following end of third cycle. PRIOR TREATMENT: VRD 21-day schedule with Velcade on days 1, 4, 8, 11 and Revlimid at 10 mg 06/24/2019 - 08/07/2019. OTHER MEDICAL PROBLEMS Type 2 diabetes. Nondisplaced right ankle fracture May 2019. Hypertension. DJD. Chronic back pain. INTERVAL HISTORY Josh is here for day 22 treatment. He notes decreased appetite, general malaise over the last several days. His weight has dropped 6 kg from a month ago but 2-3 kg in net. He has no new lumps or bumps, shortness of breath, cough, headache, visual disturbance, fevers or chills. At the orthopedist's he learned his fracture is slightly more displaced, but they continue to watch it. Waiting for the right interval in terms of his myeloma treatment before contemplating open reduction internal fixation. REVIEW OF SYSTEMS: In addition to pertinent positives and negatives above Josh denies falls. No new numbness or tingling in hands or feet. His sugars under okay control he says. VITAL SIGNS: Reviewed. Stable. Weight 83.1 kg, temperature 97.9, blood pressure 122/71, heart rate 80, respiratory rate 18, O2 sat 97%. LABORATORY DATA WBC 10.6, hemoglobin 10.9, hematocrit 34, platelets 145, MCV 100, electrolytes normal, BUN 26, creatinine 3.0, GFR 22, glucose 287, calcium 10.5, albumin 3.1. SPEP pending. IgA 7.9, IgG 214, IgM less than 5. Free kappa lambda and kappa lambda ratio pending. IMPRESSION IgA lambda plasma cell leukemia diagnosed in May presenting with anemia, renal failure, high serum free lambda and urine positive for Bence-Fonseca protein. Day 22 cycle three induction VRD. Initially with good response now with progressive renal insufficiency, mild progressive anemia, even possible new mild borderline hypercalcemia and some new malaise concerning for either intercurrent illness, chemotherapy side effects, or disease progression. ECOG performance status one limited by right foot partial immobilization. PLAN 1. Day 22 Velcade today. 2. I have contacted Dr. Esquivel about my concerns and will follow up with him as soon as I have free light chains. The patient is scheduled to see him next week; if evidence of disease progression, unclear if Dr. Esquivel will recommend [place] based treatment, or treatment here. Discussed these possibilities with Josh and his brother En. They are of course anxious to learn the results of my conversation with Dr. Esquivel and I will keep them posted. 3. Return to clinic 09/14/2019 for day one cycle four treatment or change of therapy. TIME STATEMENT: 25 minutes were spent face to face with the patient more than 50% involved in counseling and answering questions about the issues outlined above. Electronically Signed by Chelsea Vazquez MD 09/09/2019 07:33 P DD: Chelsea Vazquez MD 09/07/2019 06:09 P DT: pio 09/07/2019 09:09 P CC: MD Franklyn Tyson MD
== END 2019-09-15 08:00 | disposition home or self-care (01) ==
LOC: M ONCM 07:46
PROVIDERS: ATTEND Internal Medicine Medical Oncology
DX: C90.10 Plasma cell leukemia not having achieved remission (principal); E11.9 Type 2 diabetes mellitus without complications; I10 Essential (primary) hypertension; M54.89 Other dorsalgia; Z79.899 Other long term (current) drug therapy
CPT/HCPCS: 36415; 70450; 80053; 82784; 83615; 83883; 84165; 85027; 96360; 96361; 96401; G0463; J2469; J9041

== ENCOUNTER 2019-09-15 08:12 | Inpatient (IN) | payer MEDICARE, OTHER ==
[~2019-09-15] VITALS: Ht 185.4 cm; Wt 81.0 kg
[~2019-09-15 08:12] MED LIST changes: -ACETAMINOPHEN TAB 650MG DOSE (2X325MG) PO ONE; -BORTEZOMIB SC ONE; -BORTEZOMIB for SC use (VELCADE) SC ONE; -CARFILZOMIB IV ONE; -D5W IV ONE; -DARATUMUMAB IV ONE; -DILUENT IV ONE; -FAMOTIDINE IV ONE; -NS 1,000 ML IV ONE; -NS 500 ML IV ONE; -NS IV ONE; -PALONOSETRON 0.25MG/5ML VIAL (ALOXI)(J2469 PER 25MCG) (FOR ONCOLOGY) IV ONE; -PROCHLORPERAZINE 5 MG TAB (S0183) PO ONE; -SODIUM CHLORIDE 0.9% 1000ML IV ONE; -diphenhydrAMINE INJ 50MG/ML VIAL (J1200) IV ONE
[2019-09-15] MEDS ORDERED: NS 500 ML IV ONE ×2 (08:45→11:00)
[2019-09-15] MEDS ORDERED: allopurinoL 300 MG TAB PO SCH (09:00)
[2019-09-15] MEDS: CARVedilol 3.125 MG TAB PO SCH ×2 (09:00→20:13)
[2019-09-15] MEDS: FOLIC ACID 1 MG TAB PO SCH (09:00)
[2019-09-15] MEDS: DOCUSATE SODIUM 100 MG CAP PO SCH ×2 (09:00→20:14)
[2019-09-15] MEDS ORDERED: TORSEMIDE 10 MG TABLET PO SCH (09:00)
[2019-09-15] MEDS: OMEPRAZOLE 20 MG CAP PO SCH (09:00)
[2019-09-15] MEDS: BACLOFEN 10 MG TAB PO SCH ×2 (09:00→20:13)
--- NOTE | 2019-09-15 09:17 | REP ---
CT brain: 09/15/2019. Indication: Confusion. Stroke. Comparison: Earlier this month. Technique: Unenhanced axial CT images of the brain were obtained from skull base to vertex. Coronal reconstructions were provided. Findings: There is no acute intracranial hemorrhage, acute cortical infarction, mass effect or hydrocephalous. Volume loss and mild sequelae of chronic microangiopathic ischemic disease are redemonstrated. Impression: No acute intracranial process. Electronically Signed by Steven Srinivasan DO 09/15/2019 09:08 A
--- NOTE | 2019-09-15 09:33 | REP ---
CHEST, SINGLE VIEW: Single view of the chest is performed. COMPARISON: 09/19/2014 There is no acute infiltrate. Heart is not significantly enlarged. There is calcification of the thoracic aorta. The mediastinal silhouette is unremarkable. There are degenerative changes of the spine. IMPRESSION: No acute infiltrate. Electronically Signed by Kelby Aguilar MD 09/15/2019 09:45 A
[2019-09-15 09:40] LABS: VENOUS HCO3 24.7 MEQ/L (23.0-27.0); VENOUS O2 SATURATION 92.6 % (60.0-80.0); VENOUS PARTIAL PRESSURE CO2 35.8 mmHg (38.0-50.0); VENOUS PARTIAL PRESSURE O2 67.8 mmHg (30.0-50.0); VENOUS PH 7.457 UNITS (7.330-7.430); VENOUS STANDARD HCO3 25.3 MEQ/L; VENOUS TOTAL CO2 25.8 MEQ/L (24.0-28.0)
[2019-09-15 09:45] LABS: HEMATOCRIT 30.7 % (42.0-52.0); HEMOGLOBIN 9.8 g/dl (13.5-17.5); MEAN CORPUSCULAR HEMOGLOBIN 31.7 pg (27.0-33.0); MEAN CORPUSCULAR HGB CONC 31.9 g/dl (32.0-36.5); MEAN CORPUSCULAR VOLUME 99.4 fl (80.0-96.0); RED BLOOD COUNT 3.09 10^6/uL (4.30-6.10); WHITE BLOOD COUNT 14.1 10^3/uL (4.0-10.0)
[2019-09-15 10:05] LABS: HEMOGLOBIN A1c 9.9 %
[2019-09-15 10:07] LABS: INR 1.23; PROTHROMBIN TIME 15.2 SECONDS (11.8-14.0)
[2019-09-15 10:08] LABS: PARTIAL THROMBOPLASTIN TIME 33.2 SECONDS (25.0-38.4)
[2019-09-15 10:14] LABS: PLATELET COUNT, AUTOMATED 88 10^3/uL (150-450)
[2019-09-15 10:22] LABS: ATYPICAL LYMPH 4 % (0-5); BASOPHILS 2 % (0-1); LYMPHOCYTES 50 % (16-44); MONOCYTES 10 % (0-5); NEUTROPHILS 15 % (28-66); PLASMA CELL 14 % (0-0); PLATELET ESTIMATE DECREASED (NORMAL)
[2019-09-15 10:24] LABS: ANISOCYTOSIS 1+; POLYCHROMASIA 1+
[2019-09-15 10:26] LABS: OSMOLALITY SERUM 304 MOSM/KG (280-301)
[2019-09-15 10:32] LABS: ALBUMIN 2.8 GM/DL (3.2-5.2); ALT/SGPT 18 U/L (12-78); AMYLASE 38 U/L (25-115); BILIRUBIN,DIRECT 0.2 MG/DL (0.0-0.2); BILIRUBIN,TOTAL 0.8 MG/DL (0.2-1.0); BLOOD UREA NITROGEN 27 MG/DL (7-18); CALCIUM LEVEL 12.8 MG/DL (8.8-10.2); CARBON DIOXIDE LEVEL 28 MEQ/L (21-32); CHLORIDE LEVEL 102 MEQ/L (98-107); CK-MB VALUE MASS < 1.0 NG/ML (<3.6); CPK CREATINE PHOSPHOKINASE 36 U/L (39-308); CREATININE FOR GFR 3.19 MG/DL (0.70-1.30); GLOMERULAR FILTRATION RATE 20.7 (>49); GLUCOSE, FASTING 217 MG/DL (70-100); LIPASE 133 U/L (73-393); MB/CK RELATIVE INDEX 2.78 (< OR =4); POTASSIUM SERUM 3.8 MEQ/L (3.5-5.1); SODIUM LEVEL 140 MEQ/L (136-145); TOTAL PROTEIN 9.9 GM/DL (6.4-8.2); TROPONIN I < 0.02 NG/ML (< 0.10)
[2019-09-15] MEDS ORDERED: ZOLP12.515 PO (11:45)
[2019-09-15] MEDS ORDERED: FOLI1TAB11 PO (11:45)
[2019-09-15] MEDS ORDERED: [UNRECOGNIZED DRUG - CODE] PO (11:45)
[2019-09-15] MEDS ORDERED: ZYLO300T6 PO (11:45)
[2019-09-15] MEDS ORDERED: BACT800T5 PO (11:45)
[2019-09-15] MEDS ORDERED: ATOR1TAB19 PO (11:45)
[2019-09-15] MEDS ORDERED: INSUHUMDS SC (11:45)
[2019-09-15] MEDS ORDERED: TORS10TA3 PO (11:45)
[2019-09-15] MEDS ORDERED: COLA100C5 PO (11:45)
[2019-09-15] MEDS ORDERED: BACL10TA2 PO (11:45)
[2019-09-15] MEDS ORDERED: ACET1TAB55 PO (11:45)
[2019-09-15] MEDS ORDERED: AMLO5TAB6 PO (11:45)
[2019-09-15] MEDS ORDERED: ONDANSETRON 4 MG TAB (S0181) PO PRN (12:00)
[2019-09-15] MEDS ORDERED: GLUCOSE 4 GM CHEW TABLET PO PRN (12:00)
[2019-09-15] MEDS ORDERED: ANEXSIA, NORCO 7.5MG/325MG TABLET(HYDROCODONE/APAP) PO PRN (12:00)
[2019-09-15] MEDS ORDERED: GLUCAGON FOR INJ 1 MG VIAL (J1610) SC PRN (12:00)
[2019-09-15] MEDS ORDERED: BACLOFEN 10 MG TAB PO PRN (12:00)
[2019-09-15] MEDS ORDERED: DEXTROSE 50% 50 ML SYRINGE IV PRN (12:00)
[2019-09-15] MEDS ORDERED: MAALOX 30 ML SUSP *UDC PO PRN (12:00)
[2019-09-15 12:27] LABS: MAGNESIUM LEVEL 2.1 MG/DL (1.8-2.4)
[2019-09-15] MEDS: ASPIRIN ENTERIC 325 MG TAB PO SCH (13:04)
[2019-09-15] MEDS: amLODIPine 5 MG TAB PO SCH (13:06)
[2019-09-15] MEDS: NS 1,000 ML IV SCH ×4 (13:07→23:25)
[2019-09-15] MEDS: HumaLOG INSULIN (NovoLOG) PER UNIT SC SCH ×3 (13:07→21:00)
[2019-09-15] MEDS: valACYclovir HCL 500 MG TAB PO SCH (13:11)
--- NOTE | 2019-09-15 14:47 | HPEPDOC ---
[facility] Medical History & Physical Date of Admission Sep 15, 2019 Date of Service: Sep 15, 2019 Attending Physician: NJ ESPINOZA MD History and Physical CHIEF COMPLAINT: Weakness, "Feeling terrible" HISTORY OF PRESENT ILLNESS: Angelo Ly is a 68 y.o. male with a pertinent past medical history of primary plasma cell leukemia and hyperthyroidism presenting to the Emergency department with a 3 day history of generalized weakness and unsteadiness on his feet. During his last stay at [facility] in May 2019, where he was treated for right ankle and tibial fracture, he was found to have primary plasma cell leukemia. Since this time he has had 3 courses of chemotherapy, the most recent being 3 days ago, September 12. Since this time, the patient has described progressive weakness and malaise culminating to today where he was unable to effectively use his walker. He melissa es any falls, however, he does state that he was very unsteady on his feet and might have hit his head. He did claim to have an episode of a frontal headache but denies any changes in mental status. He states that this has never happened in the past with any of his previous chemotherapy sessions. He denies any recent changes in his medications. He mentions a lack of appetite, only being able to consume Cheerios and a few shakes of ensure. He states that he is most likely lost around 35 pounds since the start of his chemotherapy. Additionally, he claims a four-day duration of constipation. He also states that he has had chronic lower back pain of a 5/10 intensity. He denies any changes in vision, nausea, vomiting, numbness, tingling, dizziness, vertigo, loss of bladder or bowel, palpitations, tremors, diaphoresis, or abdominal pain. PAST MEDICAL HISTORY: 1. Plasma Cell Leukemia. 2. Anemia. 3. Non-insulin dependent type 2 diabetes 4. Hypertension 5. Hyperthyroidism 6. Hyper-cholesterolemia 7. Glaucoma 8. Cervical disk disease s/p fusion 9. Multi-joint arthritis PAST SURGICAL HISTORY: 1. Neck fusion 2. Knee Replacement surgery SOCIAL HISTORY: Marital status: Single. Resides in: [place], [place] with girlfriend Employment: Retired Tobacco use: Never ETOH: Very rarely. Illicit drug use: none FAMILY HISTORY: Father: Father at 74 due to stroke, had diabetes Mother: History of Mild Dementia ALLERGIES: Please see below. REVIEW OF SYSTEMS: CONSTITUTIONAL: Loss of 35lbs over 3 month period. No fevers, night sweats, chills. HEENT: Denies any changes in vision, hearing, difficulty swallowing. CARDIOVASCULAR: Denies any chest pain, palpitations. RESPIRATORY: Denies any SOB, cough. GASTROINTESTINAL: Constipation of 4 days. Denies any past episodes of dark or bloody stools. GENITOURINARY: Denies any difficulty urinating, burning, urgency or frequency. SKIN: Denies any new found skin lesions or changes in preexisting. MUSCULOSKELETAL: Feels overall weak. Some occasional twitching noted in the past. NEUROLOGICAL: Denies any changes in mentation, loss of consciousness, tingling, shooting pains, or loss of sensation. PSYCHIATRIC: Denies any changes in mood. ENDOCRINE: Denies any tremors, sweating, insomnia. HOME MEDICATIONS: Please see below. PHYSICAL EXAMINATION: VITAL SIGNS: See Below. GENERAL: Patient is pleasant and cooperative, sitting up comfortably in bed, alert and oriented in no acute distress HEENT: Normocephalic, atraumatic. No scleral icterus. Conjunctival injection noted in right eye. PERRLA. EOMI. No nasal discharge. Membranes appear pink and moist. No tracheal deviation. Thyroid did not appear enlarged, nor any nodules noted. No obvious swollen lymph nodes CARDIOVASCULAR: Regular rate and rhythm. Normal S1 and S2. No murmurs, gallops or rubs noted RESPIRATORY: Symmetric chest wall motion. Lungs clear to auscultation bilaterally. ABDOMINAL:. No obvious lesions noted. Normal bowel sounds in all 4 quadrants. Diffusely tympanic. No pain, tenderness, guarding or rigidity EXTREMITIES:. 2/4 pulses noted throughout. No leg swelling or tenderness NEUROLOGICAL: A&O x3. Spontaneous movements of all extremities. No focal deficits noted PSYCHOLOGICAL: Mood and affect were appropriate LABORATORY DATA: See below. IMAGIN09/15/2019: Head CT: No acute intracranial process. CXR: No acute infiltrate. MICROBIOLOGY: Please see below. ASSESSMENT: This is a 68-year-old male with pertinent past medical history of primary plasma cell leukemia(s/p 3 courses of chemotherapy) and hyperthyroidism(treated with Methimazole) presenting with 3 days of progressive weakness and malaise, found to have hypercalcemia without any arrhythmias or neurologic deficits, most likely secondary to his leukemia. . PLAN: #Hyper-calcemia possibly 2/2 Leukemia or Hyperthyroidism: Patient was found to have a total calcium of 12.8. His albumin was noted to be 2.8, making his corrected total calcium 13.8, placing him just below severe hypercalcemia. Ionized calcium on admission was noted to be 6.3, crit into the AFP, placing him into mild hypercalcemia. Considering patient had no focal neurologic deficits or arrhythmias, he was given two 1 L boluses of normal saline. He will be transitioned to continuous IV normal saline running at 125 mL per hour. TSH, T3 and T4 were ordered to evaluate for patient's thyroid status. Patient will be started on remote telemetry. #Acute Kidney Injury 2/2 prerenal or Leukemia Patient has a baseline creatinine of 1.5-2. Today's creatinine was found to be 3.19, suggesting acute kidney injury. Most likely prerenal in origin, potentially secondary to volume depletion secondary to hypercalcemia. Additionally, patient's leukemia could be contributing to his PERLITA. Patient's all opurinol was discontinued due to potential for Waldrop-Nick. Hydromorphoneacetaminophen was also discontinued. Patient's I/Os will be monitored. U/A with cast analysis was ordered #Hyperthyroidism Hyperthyroidism could be contributing to patient's hypercalcemia. TSH, T4 and free T3 were ordered. Patient is not exhibiting any symptoms of hyperthyroidism, currently. #Plasma Cell Leukemia Potentially leading to patient's hypercalcemia. Patient follows with medical oncologist at [facility] in [place], [place]. Patient has undergone 3 courses of chemotherapy of dexamethasone, bortezomib and lenalidomide. #Low Back Pain Patient's low back pain is chronic, he rates it as a 5 out of 10. Most likely not secondary to patient's leukemia. #Hypertension Continuing patient's home medication of amlodipine, carvedilol. #Hyper-Cholesterolemia Continuing patient's home medication of atorvastatin #Glaucoma Continuing patient's Latanoprost drops DVT prophylaxis: heparin DISPOSITION: Med/surg with tele pending clinical improvement, PT/OT evaluation Vital Signs Vital Signs Date Time Temp Pulse Resp B/P (MAP) Pulse Ox O2 Delivery O2 Flow Rate FiO2 09/15/19 13:06 88 162/73 09/15/19 11:30 96 Room Air 09/15/19 10:00 18 09/15/19 08:26 98.7 Laboratory Data Labs 24H Laboratory Tests 2 09/15/19 09:26: Immature Granulocyte % (Auto) , Monocytes # (Auto) , Nucleated Red Blood Cells % (auto) 0.3H, Neutrophils 15L, Band Neutrophils 5, Lymphocytes (Manual) 50H, Monocytes (Manual) 10H, Basophils (Manual) 2H, Atypical Lymphocytes 4, Plasma Cells 14H, Polychromasia 1+, Anisocytosis 1+, Macrocytosis 1+, Platelet Estimate DECREASED, Immature Platelet Fraction 3.0, Prothrombin Time 15.2H, Prothromb Time International Ratio 1.23, Activated Partial Thromboplast Time 33.2, Blood Gas Bicarbonate Standard 25.3, Venous Blood pH 7.457H, Venous Blood Partial Pressure CO2 35.8L, Venous Blood Partial Pressure O2 67.8H, Venous Blood Total Carbon Dioxide 25.8, Venous Blood HCO3 24.7, Venous Blood Oxygen Saturation 92.6H, Venous Blood Base Excess 1.0, Anion Gap 10, Glomerular Filtration Rate 20.7L, Estimated Mean Plasma Glucose 237H, Hemoglobin A1c 9.9, Osmolality 304H, Lactic Acid Level 1.2, Calcium Level 12.8H, Magnesium Level 2.1, Total Bilirubin 0.8#, Direct Bilirubin 0.2, Aspartate Amino Transf (AST/SGOT) 46H, Alanine Aminotransferase (ALT/SGPT) 18, Alkaline Phosphatase 89, Total Creatine Kinase 36L, Creatine Kinase MB < 1.0, Creatine Kinase MB Relative Index 2.78, Troponin I < 0.02, Total Protein 9.9H, Albumin 2.8L, Albumin/Globulin Ratio 0.39L, Amylase Level 38, Lipase 133, Parathyroid Hormone (Intact) 12.2L 09/15/19 10:02: Urine Color YELLOW, Urine Appearance CLEAR, Urine pH 6.0, Urine Specific [place] 1.011, Urine Protein 1+H, Urine Glucose (UA) NEGATIVE, Urine Ketones NEGATIVE, Urine Blood NEGATIVE, Urine Nitrite NEGATIVE, Urine Bilirubin NEGATIVE, Urine Urobilinogen 0.2, Urine Leukocyte Esterase NEGATIVE, Urine WBC (Auto) 3, Urine RBC (Auto) 1, Urine Hyaline Casts (Auto) 1, Urine Bacteria (Auto) NEGATIVE, U rine Squamous Epithelial Cells 0, Urine Mucus (Auto) SMALL, Urine Sperm (Auto) 09/15/19 12:11: Whole Blood Ionized Calcium 6.3*H 09/15/19 12:44: Bedside Glucose (Misc Panel) 144H CBC/BMP Laboratory Tests 09/15/19 09:26 Microbiology Microbiology 09/15/19 Blood Culture, Received Pending 09/15/19 Blood Culture, Received Pending Home Medications Scheduled Allopurinol (Zyloprim) 300 Mg Tablet, 300 MG PO DAILY Amlodipine Besylate (Amlodipine Besylate) 5 Mg Tablet, 5 MG PO DAILY Aspirin (Aspirin EC) 325 Mg Tablet.dr, 325 MG PO DAILY Atorvastatin Calcium (Lipitor) 20 Mg Tablet, 20 MG PO QPM TAKE WITH 10MG TABLET Atorvastatin Calcium (Atorvastatin Calcium) 10 Mg Tablet, 10 MG PO QPM TAKE WITH 20MG TABLET Baclofen (Baclofen) 10 Mg Tablet, 10 MG PO BID Brimonidine Tartrate/Timolol (Combigan 0.2%-0.5% Eye Drops) 5 Ml Drops, 1 DROP OD BID Carvedilol (Carvedilol) 3.125 Mg Tablet, 3.125 MG PO BID Folic Acid (Folic Acid) 1 Mg Tablet, 1 MG PO DAILY Insulin Detemir (Levemir Flextouch) 100 Unit/1 Ml Insuln.pen, 16 UNIT SQ BID Insulin Human Lispro (Humalog) 100 Unit/1 Ml Vial, 1 DOSE SC BID Methimazole (Methimazole) 5 Mg Tablet, 5 MG PO Q2D QHS: ALTERNATE 5MG AND 10MG EVERY OTHER DAY Methimazole (Methimazole) 10 Mg Tablet, 10 MG PO Q2D QHS: ALTERNATE 5MG AND 10MG EVERY OTHER DAY Omeprazole (Omeprazole) 20 Mg Capsule.dr, 1 CAP PO DAILY Sitagliptin Phosphate (Januvia) 100 Mg Tablet, 50 MG PO DAILY Sulfamethoxazole/Trimethoprim (Bactrim Ds Tablet) 1 Each Tablet, 1 TAB PO 3XW MON, WED, FRI Torsemide (Torsemide) 10 Mg Tablet, 10 MG PO DAILY Travoprost (Travatan Z) 0.004% 2.5ML Drops, 1 DROP OU QHS Valacyclovir HCl (Valacyclovir) 500 Mg Tablet, 500 MG PO DAILY Zolpidem Tartrate (Zolpidem Tartrate ER) 12.5 Mg Tab.mphase, 12.5 MG PO QHS Scheduled PRN Acetaminophen (Acetaminophen) 325 Mg Tablet, 650 MG PO Q4H PRN for PAIN Baclofen (Baclofen) 10 Mg Tablet, 10 MG PO DAILY PRN for SPASMS Docusate Sodium (Colace) 100 Mg Capsule, 100 MG PO DAILY PRN for CONSTIPATION Hydrocodone/Acetaminophen (Hydrocodone-Acetamin 7.5-325) 1 Each Tablet, 1 TAB PO TID PRN for PAIN Ondansetron HCl (Ondansetron HCl) 8 Mg Tablet, 8 MG PO Q6H PRN for NAUSEA OR VOMITING TAKE ONE TABLET EVERY 6 HOURS NEEDED FOR NAUSEA. Prochlorperazine Maleate (Prochlorperazine Maleate) 10 Mg Tablet, 10 MG PO Q8H PRN for NAUSEA OR VOMITING TAKE ONE TABLET EVERY 8 HOURS NEEDED FOR NAUSEA. Allergies Coded Allergies: indomethacin (Verified Adverse Reaction, Unknown, HEARTBURN, 09/15/19) A-FIB/CHADSVASC A-FIB History Current/History of A-Fib/PAF?: No GME ATTESTATION GME ATTESTATION My faculty preceptor for this patient encounter was physically present during the encounter and was fully available. All aspects of the patient interview, examination, medical decision making process, and medical care plan development were reviewed and approved by the faculty preceptor. The faculty preceptor is aware and concurs with the plan as stated in the body of this note and will attest to such by his/her cosignature. ATTENDING NOTE Patient was seen and examined by me this morning with the residents. Agree with the above assessment and plan DARIELA DANIELS OMS-3 Sep 15, 2019 14:46 JAMAAL MULLINS D.O. Sep 15, 2019 18:55 NJ ESPINOZA MD Sep 16, 2019 10:53
[2019-09-15 14:50] VITALS: BP 141/75
[2019-09-15 16:25] LABS: CREATININE FOR GFR 3.17 MG/DL (0.70-1.30); FREE T3 2.4 PG/ML (2.2-4.0); FREE T4 1.14 NG/DL (0.76-1.46); GLOMERULAR FILTRATION RATE 20.8 (>49); THYROID STIMULATING HORMONE 0.599 uIU/ML (0.358-3.740)
[2019-09-15] MEDS: ATORVASTATIN 10 MG TAB PO SCH (20:13)
[2019-09-15] MEDS: LATANOPROST 0.005% OPHTH SOLN 2.5 ML OU SCH (20:13)
[2019-09-15] MEDS: ATORVASTATIN 20 MG TAB PO SCH (20:13)
[2019-09-15 22:00] VITALS: BP 147/74
[2019-09-15] MEDS ORDERED: MORPHINE 2 MG/ML 1ML VIAL (J2270) IV ONE (22:00)
[2019-09-15] MEDS: HEPARIN SOD (PORCINE) 5000 UNITS/ML VIAL SQ SCH (22:22)
[2019-09-15] MEDS: zolPIDEM CR 6.25MG TABLET (AMBIEN CR) PO SCH (22:22)
[2019-09-16] MEDS: NS 1,000 ML IV SCH ×3 (05:33→19:22)
[2019-09-16 06:00] VITALS: BP 149/70
[2019-09-16] MEDS: HEPARIN SOD (PORCINE) 5000 UNITS/ML VIAL SQ SCH ×3 (06:00→20:52)
[2019-09-16 06:09] LABS: HEMATOCRIT 25.7 % (42.0-52.0); MEAN CORPUSCULAR HEMOGLOBIN 31.4 pg (27.0-33.0); MEAN CORPUSCULAR HGB CONC 31.1 g/dl (32.0-36.5); MEAN CORPUSCULAR VOLUME 100.8 fl (80.0-96.0); RED BLOOD COUNT 2.55 10^6/uL (4.30-6.10)
[2019-09-16 06:29] LABS: CALCIUM LEVEL 11.8 MG/DL (8.8-10.2); CREATININE FOR GFR 3.02 MG/DL (0.70-1.30); PLATELET COUNT, AUTOMATED 65 10^3/uL (150-450); POTASSIUM SERUM 3.5 MEQ/L (3.5-5.1)
[2019-09-16] MEDS: OMEPRAZOLE 20 MG CAP PO SCH (08:23)
[2019-09-16] MEDS: ASPIRIN ENTERIC 325 MG TAB PO SCH (08:23)
[2019-09-16] MEDS: HumaLOG INSULIN (NovoLOG) PER UNIT SC SCH ×4 (08:23→20:48)
[2019-09-16] MEDS: amLODIPine 5 MG TAB PO SCH (08:23)
[2019-09-16] MEDS: valACYclovir HCL 500 MG TAB PO SCH (08:23)
[2019-09-16] MEDS: BACLOFEN 10 MG TAB PO SCH ×2 (08:23→20:50)
[2019-09-16] MEDS: FOLIC ACID 1 MG TAB PO SCH (08:23)
[2019-09-16] MEDS: DOCUSATE SODIUM 100 MG CAP PO SCH ×2 (08:24→20:49)
[2019-09-16] MEDS: CARVedilol 3.125 MG TAB PO SCH ×2 (08:24→20:52)
--- NOTE | 2019-09-16 11:08 | IPNPDOC ---
Date Seen The patient was seen on 09/16/19. Progress Note SUBJECTIVE: Pt was seen at bedside this morning sitting comfortably on a couch by the window. He said he was feeling significantly better than yesterday and his only complaint was that he had trouble sleeping the night before. He denies any further weakness, altered mentation, palpitations, chest pain, SOB, difficulty urinating or moving his bowels. OBJECTIVE PHYSICAL EXAMINATION: VITAL SIGNS: Please see below. GENERAL: Patient is pleasant and cooperative, sitting comfortably on his couch, alert and oriented in no acute distress HEENT: Normocephalic, atraumatic. No scleral icterus. Conjunctival injection noted in right eye. PERRLA. EOMI. No nasal discharge. Membranes appear pink and moist. No tracheal deviation. Thyroid did not appear enlarged, nor any nodules noted. No obvious swollen lymph nodes CARDIOVASCULAR: Regular rate and rhythm. Normal S1 and S2. No murmurs, gallops or rubs noted RESPIRATORY: Symmetric chest wall motion. Lungs clear to auscultation bilaterally. ABDOMINAL:. No obvious lesions noted. Normal bowel sounds in all 4 quadrants. Diffusely tympanic. No pain, tenderness, guarding or rigidity EXTREMITIES:. 2/4 pulses noted throughout. No leg swelling or tenderness NEUROLOGICAL: A&O x3. CNII-XII intact. 5/5 muscle strength in all extremities. Spontaneous movements of all extremities. No focal deficits noted PSYCHOLOGICAL: Mood and affect were appropriate LABORATORY DATA, MICROBIOLOGY: Please see below. Imagin09/15/2019: Head CT: No acute intracranial process. CXR: No acute infiltrate. DVT prophylaxis ordered?: 5000U Heparin SC ASSESSMENT AND PLAN: This is a 68-year-old male with pertinent past medical history of primary plasma cell leukemia(s/p 3 courses of chemotherapy) and hyperthyroidism(treated with Methimazole) presenting with 3 days of progressive weakness and malaise, found to have hypercalcemia without any arrhythmias or neurologic deficits, most likely secondary to his leukemia. PROBLEMS: #Hyper-calcemia possibly 2/2 Leukemia or Hyperthyroidism: -No events recorded on telemetry overnight -Improvement in pt's weakness -Calcium had trended downwards to 11.8 from 12. -Will continue with IV NS at 125mL/hr #Acute Kidney Injury 2/2 pre-renal or Leukemia -Trending downward to 3.02 from 3.17 -Will recheck Creatinine, order U/A with cast analysis -Continue hydration and monitor for further improvement #Hyperthyroidism -TSH normal at 0.599 -T4 at 1.14 -T3 at 2.4 -c/w Methimazole #Plasma Cell Leukemia -Had 3rd round of Chemo 4 days ago -F/U with [facility] in [place], [place] #Low Back Pain -Chronic, most likely not related to Hypercalcemia or Leukemia. #Hypertension c/w amlodipine, carvedilol. #Hyper-Cholesterolemia c/w atorvastatin #Glaucoma c/w Latanoprost drops DISPOSITION: Pending further improvement in Renal Function and Calcium levels VS, I&O, 24H, Fishbone Vital Signs/I&O Vital Signs Date Time Temp Pulse Resp B/P (MAP) Pulse Ox O2 Delivery O2 Flow Rate FiO2 09/16/19 08:24 91 148/76 09/16/19 06:00 97.1 20 96 09/15/19 22:31 Room Air I&O- Last 24 Hours up to 6 AM 09/16/19 06:00 Intake Total 4500 ml Output Total 1000 ml Balance 3500 ml Laboratory Data 24H LABS Laboratory Tests 2 09/15/19 12:11: Whole Blood Ionized Calcium 6.3*H 09/15/19 12:44: Bedside Glucose (Misc Panel) 144H 09/15/19 15:35: Whole Blood Ionized Calcium 6.3*H, Anion Gap 4L, Glomerular Filtration Rate 20.8L, Calcium Level 12.0H, Thyroid Stimulating Hormone (TSH) 0.599, Free Thyroxine 1.14, Free Triiodothyronine 2.4 09/15/19 16:52: Bedside Glucose (Misc Panel) 221H 09/15/19 20:34: Bedside Glucose (Misc Panel) 206H 09/15/19 21:37: Calcium Level 11.4H 09/16/19 05:54: Calcium Level 11.8H, Nucleated Red Blood Cells % (auto) 0.6H, Anion Gap 8, Glomerular Filtration Rate 22.0L CBC/BMP Laboratory Tests 09/15/19 15:35 09/16/19 05:54 Microbiology Microbiology 09/15/19 Blood Culture - Preliminary, Resulted No growth after 24 hours . All specim... 09/15/19 Blood Culture - Preliminary, Resulted No growth after 24 hours . All specim... GME ATTESTATION GME ATTESTATION My faculty preceptor for this patient encounter was physically present during the encounter and was fully available. All aspects of the patient interview, examination, medical decision making process, and medical care plan development were reviewed and approved by the faculty preceptor. The faculty preceptor is aware and concurs with the plan as stated in the body of this note and will attest to such by his/her cosignature. ATTENDING NOTE Patient was seen and examined by me this morning with the residents. Agree with the above assessment and plan DARIELA DANIELS-3 Sep 16, 2019 11:08 NJ ESPINOZA MD Sep 16, 2019 11:53
[2019-09-16 12:34] LABS: APPEARANCE, URINE CLEAR (CLEAR); BACTERIA, URINE AUTO NEGATIVE (NEGATIVE); BILIRUBIN, URINE AUTO NEGATIVE (NEGATIVE); BLOOD, URINE BLOOD 1+ (NEGATIVE); COLOR, URINE STRAW (YELLOW); GLUCOSE, URINE (UA) AUTO NEGATIVE (NEGATIVE); KETONE, URINE AUTO NEGATIVE (NEGATIVE); LEUKOCYTE ESTERASE, URINE AUTO NEGATIVE (NEGATIVE); NITRITE, URINE AUTO NEGATIVE (NEGATIVE); PROTEIN, URINE AUTO NEGATIVE (NEGATIVE); RBC, URINE AUTO 0 /HPF (0-3); SPECIFIC GRAVITY URINE AUTO 1.006 (1.002-1.035); SQUAMOUS EPITHELIAL CELL UR AU 0 /HPF (0-6); UROBILINOGEN, URINE AUTO 0.2 mg/dL (0.0-2.0); WBC, URINE AUTO 1 /HPF (0-3)
[2019-09-16 12:54] LABS: CREATININE,RANDOM URINE 29.8 MG/DL; SODIUM,RANDOM URINE 90 MEQ/L
[2019-09-16 14:00] VITALS: BP 147/75
[2019-09-16] MEDS: ATORVASTATIN 20 MG TAB PO SCH (20:49)
[2019-09-16] MEDS: LATANOPROST 0.005% OPHTH SOLN 2.5 ML OU SCH (20:49)
[2019-09-16] MEDS: ATORVASTATIN 10 MG TAB PO SCH (20:50)
[2019-09-16] MEDS: zolPIDEM CR 6.25MG TABLET (AMBIEN CR) PO SCH (20:55)
[2019-09-16] MEDS: ACETAMINOPHEN TAB 650MG DOSE (2X325MG) PO PRN (21:18)
[2019-09-16 22:00] VITALS: BP 163/79
--- NOTE | 2019-09-16 22:13 | ECGEPIP ---
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
[2019-09-17] VITALS (7 sets, daily range): BP systolic 148–174; BP diastolic 78–91
[2019-09-17] MEDS: ACETAMINOPHEN TAB 650MG DOSE (2X325MG) PO PRN ×2 (01:21→12:20)
[2019-09-17] MEDS: NS 1,000 ML IV SCH ×3 (02:03→18:23)
[2019-09-17] MEDS: HEPARIN SOD (PORCINE) 5000 UNITS/ML VIAL SQ SCH (06:18)
[2019-09-17 06:27] LABS: HEMATOCRIT 25.6 % (42.0-52.0); HEMOGLOBIN 7.9 g/dl (13.5-17.5); MEAN CORPUSCULAR HEMOGLOBIN 31.5 pg (27.0-33.0); MEAN CORPUSCULAR HGB CONC 30.9 g/dl (32.0-36.5); RED BLOOD COUNT 2.51 10^6/uL (4.30-6.10); WHITE BLOOD COUNT 14.6 10^3/uL (4.0-10.0)
[2019-09-17 06:31] LABS: PLATELET COUNT, AUTOMATED 53 10^3/uL (150-450)
[2019-09-17 06:51] LABS: CALCIUM LEVEL 11.8 MG/DL (8.8-10.2); CREATININE FOR GFR 2.8 MG/DL (0.70-1.30); POTASSIUM SERUM 3.4 MEQ/L (3.5-5.1)
[2019-09-17] MEDS ORDERED: POTASSIUM CHLORIDE 10 MEQ SR TABLET PO ONE (07:45)
[2019-09-17] MEDS: CARVedilol 3.125 MG TAB PO SCH ×2 (08:51→20:29)
[2019-09-17] MEDS: valACYclovir HCL 500 MG TAB PO SCH (08:51)
[2019-09-17] MEDS: DOCUSATE SODIUM 100 MG CAP PO SCH ×2 (08:51→20:29)
[2019-09-17] MEDS: ASPIRIN ENTERIC 325 MG TAB PO SCH (08:51)
[2019-09-17] MEDS: HumaLOG INSULIN (NovoLOG) PER UNIT SC SCH ×4 (08:51→20:30)
[2019-09-17] MEDS: FOLIC ACID 1 MG TAB PO SCH (08:51)
[2019-09-17] MEDS: amLODIPine 5 MG TAB PO SCH (08:52)
[2019-09-17] MEDS: BACLOFEN 10 MG TAB PO SCH ×2 (08:52→20:29)
[2019-09-17] MEDS: OMEPRAZOLE 20 MG CAP PO SCH (08:58)
--- NOTE | 2019-09-17 09:05 | IPNPDOC ---
Date Seen The patient was seen on 09/17/19. Progress Note SUBJECTIVE: Patient was seen and examined this morning lying comfortably in bed. He states he did fall last night, but denies any dizziness, lightheadedness, palpitations, chest pain, or shortness of breath prior to the incident. He denies any loss of consciousness. He denies hitting his head. He states he did land on his bottom, and states it does feel somewhat sore this morning. He states overall he does feel improvement in his weakness and does not think that he fell due to weakness. OBJECTIVE PHYSICAL EXAMINATION: VITAL SIGNS: Please see below. GENERAL: Alert, comfortable sitting up in the wheelchair after returning from x- ray, in no acute distress HEENT: Normocephalic, atraumatic, moist mucous membranes NECK: Supple, trachea midline, no lymphadenopathy, no thyromegaly CARDIOVASCULAR: Regular rate and rhythm, normal S1 and S2. No murmurs, rubs, or gallops RESPIRATORY: Clear to auscultation bilaterally with equal air entry bilaterally. No wheezing, rhonchi, or rales. ABDOMEN: Soft, nontender, nondistended, bowel sounds present, no masses or hepatosplenomegaly appreciated EXTREMITIES: No cyanosis or edema. Pulses 2+/4 in bilateral upper and lower extremities. Air cast on the right leg for prior fracture NEUROLOGIC: Alert and oriented 3 to person, place and time. No focal deficits appreciated PSYCHIATRIC: Mood and affect appropriate LABORATORY DATA, MICROBIOLOGY: Please see below. Imagin09/15/2019: Head CT: No acute intracranial process. CXR: No acute infiltrate. DVT prophylaxis ordered?: 5000U Heparin SC ASSESSMENT AND PLAN: This is a 68-year-old male with pertinent past medical history of primary plasma cell leukemia(s/p 3 courses of chemotherapy) and hyperthyroidism(treated with Methimazole) presenting with 3 days of progressive weakness and malaise, found to have hypercalcemia without any arrhythmias or neurologic deficits, most likely secondary to his leukemia. PROBLEMS: #Hyper-calcemia possibly 2/2 Leukemia or Hyperthyroidism: -Calcium has remained stable the past 24 hours -Will continue with IV NS at 150mL/hr and start treatment with zoledronic acid -recheck calcium levels this afternoon #Mechanical fall -pt fell last night while in the bathroom -denies any symptoms of presyncope, no LOC -xray of bilateral hips and pelvis to check for fracture #Acute Kidney Injury 2/2 pre-renal or Leukemia -Cr continues to trend down -Continue hydration and monitor for further improvement #Hyperthyroidism -c/w Methimazole #Plasma Cell Leukemia -Had 3rd round of chemo 4 days ago -F/U with [facility] in [place], [place] #Low Back Pain -Chronic, most likely not related to hypercalcemia or leukemia. #Hypertension c/w amlodipine, carvedilol. #Hyper-Cholesterolemia c/w atorvastatin #Glaucoma c/w Latanoprost drops DISPOSITION: pending further improvement in Renal Function and Calcium levels VS, I&O, 24H, Fishbone Vital Signs/I&O Vital Signs Date Time Temp Pulse Resp B/P (MAP) Pulse Ox O2 Delivery O2 Flow Rate FiO2 09/17/19 06:00 97.3 100 20 174/85 (114) 95 Room Air I&O- Last 24 Hours up to 6 AM 09/17/19 06:00 Intake Total 5145 ml Output Total 2325 ml Balance 2820 ml Laboratory Data 24H LABS Laboratory Tests 2 09/16/19 11:25: Bedside Glucose (Misc Panel) 182H 09/16/19 12:12: Urine Color STRAW, Urine Appearance CLEAR, Urine pH 7.0, Urine Specific [place] 1.006, Urine Protein NEGATIVE, Urine Glucose (Auto)(UA) NEGATIVE, Urine Ketones (Auto) NEGATIVE, Urine Blood 1+H, Urine Nitrite NEGATIVE, Urine Bilirubin NEGATIVE, Urine Urobilinogen 0.2, Urine Leukocyte Esterase (Auto) NEGATIVE, Urine WBC (Auto) 1, Urine RBC (Auto) 0, Urine Hyaline Casts (Auto) 0, Urine Bacteria (Auto) NEGATIVE, Urine Squamous Epithelial Cells 0, Urine Sperm (Auto) , Urine Random Creatinine 29.8, Urine Random Sodium 90 09/16/19 16:41: Bedside Glucose (Misc Panel) 170H 09/17/19 06:11: Nucleated Red Blood Cells % (auto) 0.5H, Immature Platelet Fraction 2.6, Anion Gap 9, Glomerular Filtration Rate 24.0L, Calcium Level 11.8H CBC/BMP Laboratory Tests 09/17/19 06:11 Microbiology Microbiology 09/15/19 Blood Culture - Preliminary, Resulted No growth after 24 hours . All specim... 09/15/19 Blood Culture - Preliminary, Resulted No growth after 24 hours . All specim... GME ATTESTATION GME ATTESTATION My faculty preceptor for this patient encounter was physically present during the encounter and was fully available. All aspects of the patient interview, examination, medical decision making process, and medical care plan development were reviewed and approved by the faculty preceptor. The faculty preceptor is aware and concurs with the plan as stated in the body of this note and will attest to such by his/her cosignature. ATTENDING NOTE Patient was seen and examined by me this morning with the residents. Agree with the above assessment and plan JAMAAL MULLINS D.O. Sep 17, 2019 09:05 NJ ESPINOZA MD Sep 17, 2019 15:42
[2019-09-17] MEDS ORDERED: ZOLEDRONIC ACID 4 MG in D5W 100 ML IV ONE (11:00)
--- NOTE | 2019-09-17 11:43 | REP ---
REASON FOR EXAM: Pain after trauma. There is mild hip joint space narrowing. There is no acute fracture, dislocation, or subluxation. The Ap pelvis shows bilateral hip degenerative changes. Degenerative changes are seen involving the sacroiliac joints and imaged portion of the spine. There is an internal fixation plate applied to the proximal left femur. There is no acute fracture, dislocation or subluxation. Electronically Signed by Murphy Davis DO 09/17/2019 12:15 P
[2019-09-17] MEDS: PERCOCET 5MG/325MG TAB PO PRN (14:14)
[2019-09-17] MEDS: TAMSULOSIN 0.4 MG CAP PO SCH (14:43)
[2019-09-17] MEDS ORDERED: LORazepam 2 MG/ML VIAL (J2060) IV PRN (17:45)
[2019-09-17] MEDS ORDERED: LORazepam 2 MG/ML VIAL (J2060) As Ordered ONE (18:20)
[2019-09-17] MEDS: zolPIDEM CR 6.25MG TABLET (AMBIEN CR) PO SCH (20:28)
[2019-09-17] MEDS: ATORVASTATIN 10 MG TAB PO SCH (20:28)
[2019-09-17] MEDS: ATORVASTATIN 20 MG TAB PO SCH (20:29)
[2019-09-17] MEDS: LATANOPROST 0.005% OPHTH SOLN 2.5 ML OU SCH (20:29)
[2019-09-18] VITALS (13 sets, daily range): BP systolic 99–163; BP diastolic 38–90
[2019-09-18] MEDS: PERCOCET 5MG/325MG TAB PO PRN (00:34)
[2019-09-18] MEDS: NS 1,000 ML IV SCH ×2 (01:29→09:55)
--- NOTE | 2019-09-18 01:37 | REPVR ---
PROCEDURE INFORMATION: Exam: CT Head Without Contrast Exam date and time: 09/18/19 (1:06am) Age: 68 years old Clinical indication: Injury or trauma. Fall. Initial encounter. Blunt trauma (contusions or hematomas). Altered mental status / memory loss. Confusion or disorientation. TECHNIQUE: Imaging protocol: Computed tomography of the head without contrast. Radiation optimization: All CT scans at this facility use at least one of these dose optimization techniques: automated exposure control; mA and/or kV adjustment per patient size (includes targeted exams where dose is matched to clinical indication); or iterative reconstruction. COMPARISON: CT HEAD of 09/15/19 FINDINGS: Brain: Age-appropriate atrophic changes. No acute hemorrhage. No mass effect. Ventricles: Normal. No ventriculomegaly. Bones/joints: Unremarkable. No acute fracture. Sinuses: Visualized sinuses are unremarkable. No fluid levels. Mastoid air cells: Visualized mastoid air cells are well aerated. Soft tissues: Unremarkable. IMPRESSION: No acute intracranial pathology is appreciated. A similar appearance was noted 3 days ago. Electronically signed by: Verónica Liang On 09/18/2019 01:37:44 AM
[2019-09-18 01:39] LABS: HEMOGLOBIN 6.2 g/dl (13.5-17.5); MEAN CORPUSCULAR HEMOGLOBIN 31.8 pg (27.0-33.0); MEAN CORPUSCULAR HGB CONC 31.5 g/dl (32.0-36.5); PLATELET COUNT, AUTOMATED 43 10^3/uL (150-450); RED BLOOD COUNT 1.95 10^6/uL (4.30-6.10); WHITE BLOOD COUNT 15.7 10^3/uL (4.0-10.0)
[2019-09-18 01:41] LABS: HEMATOCRIT 19.7 % (42.0-52.0)
[2019-09-18 02:18] LABS: ALBUMIN 2.4 GM/DL (3.2-5.2); BILIRUBIN,TOTAL 0.6 MG/DL (0.2-1.0); CALCIUM LEVEL 11.4 MG/DL (8.8-10.2); CREATININE FOR GFR 2.85 MG/DL (0.70-1.30); GLOMERULAR FILTRATION RATE 23.6 (>49); POTASSIUM SERUM 3.8 MEQ/L (3.5-5.1); TOTAL PROTEIN 8.4 GM/DL (6.4-8.2)
--- NOTE | 2019-09-18 02:42 | REPVR ---
PROCEDURE INFORMATION: Exam: CT Abdomen And Pelvis Without Contrast Exam date and time: 09/18/2019 2:20 AM Age: 68 years old Clinical indication: Injury or trauma; Fall; Initial encounter; Blunt; Generalized; Additional info: Fall/ R/O retroperitoneal bleed TECHNIQUE: Imaging protocol: Computed tomography of the abdomen and pelvis without contrast. Radiation optimization: All CT scans at this facility use at least one of these dose optimization techniques: automated exposure control; mA and/or kV adjustment per patient size (includes targeted exams where dose is matched to clinical indication); or iterative reconstruction. COMPARISON: CT ABD PELVIS W/O CONTRAST 06/14/2019 4:58 PM FINDINGS: Limited without IV contrast. Limited by motion and by artifact resulting from the patient being scanned with the arms at the sides of the body Lungs: Focal atelectasis at the right lung base. Nodular-like 5 mm density, not present on CT from May 2019, likely a focus of subsegmental atelectasis. Liver: Noncontrast liver shows no obvious lesion. Gallbladder and bile ducts: Gallbladder is present and shows no evidence of gallstone. Pancreas: Noncontrast pancreas shows no obvious mass or adjacent fluid. Spleen: Noncontrast spleen shows no obvious focal deformity. Adrenals: Adrenal glands are normal in appearance. Kidneys and ureters: Kidneys show no stone or hydronephrosis. Stomach and bowel: No evidence of small bowel obstruction. No evidence of acute diverticulitis. Appendix: Appendix is not seen. No RLQ inflammation to suggest appendicitis. Intraperitoneal space: No pneumoperitoneum. Vasculature: Atherosclerotic change present in the aorta, without aneurysm. Lymph nodes: No enlarged lymph nodes. Bladder: Urinary bladder appears normal. Reproductive: Prostate gland is diffusely enlarged. Bones/joints: No acute osseous deformity. Multiple lucencies within the pelvis, possibly myeloma-related. Soft tissues: Right gluteal muscle hematoma, difficult to measure, extending into the superior fornix recess IMPRESSION: 1. Right gluteal and puriform is muscle hematoma without underlying pelvic fracture. 2. limitations as described above. 3. Subtle lucencies within the osseous structures which could be related to multiple myeloma Electronically signed by: Servando Joseph On 09/18/2019 02:41:44 AM
--- NOTE | 2019-09-18 04:49 | IPNPDOC ---
Date Seen The patient was seen on 09/18/19. Progress Note INTERVAL STATUS UPDATE Patient was seen overnight after concerns for worsening Altered mental status. It was reported that patient had fallen earlier in the day. I evaluated the patient at bedside. He was in no acute distress although he was not oriented to place or time. He did not answer questions appropriately. An area of bruising was seen on his head. Decision was made for head CT noncontrast. Results demonstrated no acute intracranial pathology. A CBC and CMP was also obtained given patients AMS. Review of his medications revealed multiple medications concerning for polypharmacy in the setting of renal failure. These have been discontinued. The patients CBC returned with a hemoglobin of 6.2. CT abdomen/Pelvis was ordered to rule out possible retroperitoneal hemorrhage. CT demonstrated a right gluteal and piriformis muscle hematoma without underlying pelvic fracture. Patient was unable to consent for blood given his altered status. Patients health care proxy was contacted for transfusion consent. Patient was transferred two units of PRBCs. OBJECTIVE PHYSICAL EXAMINATION: VITAL SIGNS: Please see below. GENERAL: Awake and alert. Appears in no acute distress. Lying in bed and appears restless. Appears altered and confused HEENT: Small area of bruising on occiput. No neck swelling CARDIOVASCULAR: Normal S1, S2. Tachycardic rate. Regular rhythm. No clicks, rubs, or murmurs RESPIRATORY: Clear vesicular breath sounds bilaterally. Good respiratory effort. No wheezes, rhonchi, or rales ABDOMINAL: Soft, nondistended. Nontender. No masses. An area of ecchymosis delmy rounding his right flank and wrapping around to his right EXTREMITIES: No edema. Full and equal pulses in bilateral upper and lower extremities NEUROLOGICAL: Patient is alerted. He is not compliant with a full neurological exam. There were no focal neurological deficits on exam. The patient did follow commands appropriately at times although this was inconsistent LABORATORY DATA, IMAGING STUDIES, MICROBIOLOGY: Please see below. ASSESSMENT AND PLAN: Patient is a 68 year old male admitted for hypercalcemia who had experienced a fall and subsequently developed AMS and acute blood loss anemia secondary to gluteal muscle hematoma INTERVAL PROBLEMS OVERNIGHT 1. Altered Mental Status likely secondary to polypharmacy -Patient experienced a fall. CT imaging is negative for an acute subdural or epidural hematoma -Patient is currently on Ambien, Percocet, Ativan, and Baclofen in the sett ing of renal failure. His altered mental status is likely delirium from polypharmacy -Currently holding medications with potential to lead to AMS -Neuro exam is without focal neurological deficits. Positive only for not being oriented to time or place or answering questions appropriately 2. Acute Blood Loss Anemia secondary to Right gluteal and piriformis muscle hematoma -CBC drawn demonstrated a hemoglobin of 6.2. Patient does have platelets of 43. He has an area of bruising on his right flank extending around his left. -CT abdomen/Pelvis demonstrating a right gluteal and piriformis hematoma -Patients health care proxy was contacted for consent for transfusion -Patient was transfused 2 units PRBC -Will trend H&H -Anticoagulation was held by day team. Will continue to hold I, Wilmer Wright, have independently examined this patient and performed my own physical exam, as well as reviewed the documentation and edited where necessary. I have discussed in detail with the resident / student the findings and plan of treatment as documented by the resident / student and edited their note. I agree with their findings and treatment plan and have edited their do cumentation. I will continue to follow the patient during this hospital stay. VS, I&O, 24H, [facility] Vital Signs/I&O Vital Signs Date Time Temp Pulse Resp B/P (MAP) Pulse Ox O2 Delivery O2 Flow Rate FiO2 09/18/19 04:06 97.6 114 18 147/75 96 Room Air I&O- Last 24 Hours up to 6 AM 09/18/19 06:00 Intake Total 2100 ml Output Total 2420 ml Balance -320 ml Laboratory Data 24H LABS Laboratory Tests 2 09/17/19 06:11: Nucleated Red Blood Cells % (auto) 0.5H, Immature Platelet Fraction 2.6, Anion Gap 9, Glomerular Filtration Rate 24.0L, Calcium Level 11.8H 09/17/19 12:07: Bedside Glucose (Misc Panel) 180H 09/17/19 15:45: Calcium Level 11.8H 09/17/19 15:47: Bedside Glucose (Misc Panel) 131H 09/17/19 16:59: Bedside Glucose (Misc Panel) 174H 09/17/19 20:06: Bedside Glucose (Misc Panel) 107 09/18/19 01:29: Nucleated Red Blood Cells % (auto) 0.7H, Anion Gap 10, Glomerular Filtration Rate 23.6L, Calcium Level 11.4H, Total Bilirubin 0.6, Aspartate Amino Transf (AST/SGOT) 58H, Alanine Aminotransferase (ALT/SGPT) 15, Alkaline Phosphatase 80, Total Protein 8.4H, Albumin 2.4L, Albumin/Globulin Ratio 0.40L CBC/BMP Laboratory Tests 09/17/19 06:11 09/18/19 01:29 Microbiology Microbiology 09/15/19 Blood Culture - Preliminary, Resulted No Growth after 48 hours. All Specime... 09/15/19 Blood Culture - Preliminary, Resulted No Growth after 48 hours. All Specime... PEYTON BOYD DO Sep 18, 2019 04:49 WILMER WRIGHT DO Sep 19, 2019 23:34
[2019-09-18 06:25] LABS: HEMATOCRIT 21.7 % (42.0-52.0); HEMOGLOBIN 6.7 g/dl (13.5-17.5); MEAN CORPUSCULAR HEMOGLOBIN 30.9 pg (27.0-33.0); MEAN CORPUSCULAR HGB CONC 30.9 g/dl (32.0-36.5); PLATELET COUNT, AUTOMATED 42 10^3/uL (150-450); RED BLOOD COUNT 2.17 10^6/uL (4.30-6.10); WHITE BLOOD COUNT 14.5 10^3/uL (4.0-10.0)
[2019-09-18] MEDS ORDERED: HALOPERIDOL 5 MG/ML VIAL (J1630) IV ONE (06:45)
[2019-09-18 06:48] LABS: CALCIUM LEVEL 11.8 MG/DL (8.8-10.2); CREATININE FOR GFR 2.82 MG/DL (0.70-1.30); GLOMERULAR FILTRATION RATE 23.8 (>49); POTASSIUM SERUM 3.7 MEQ/L (3.5-5.1)
[2019-09-18] MEDS: HumaLOG INSULIN (NovoLOG) PER UNIT SC SCH ×4 (07:30→20:41)
--- NOTE | 2019-09-18 08:07 | IPNPDOC ---
Text Note Date of Service The patient was seen on 09/18/19. NOTE Patient was seen and examined this morning. PHYSICAL EXAMINATION: GENERAL: Awake and alert. Appears in no acute distress. Lying in bed and appears restless. Appears confused HEENT: Small area of bruising on occiput. No neck swelling CARDIOVASCULAR: Normal S1, S2. Tachycardic rate. Regular rhythm. No clicks, rubs, or murmurs RESPIRATORY: Clear vesicular breath sounds bilaterally. Good respiratory effort. No wheezes, rhonchi, or rales ABDOMINAL: Soft, nondistended. Nontender. No masses. An area of ecchymosis surrounding his right flank and wrapping around to his right EXTREMITIES: No edema. Full and equal pulses in bilateral upper and lower extremities NEUROLOGICAL: Patient is alerted. He is not compliant with a full neurological exam. There were no focal neurological deficits on exam. 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 The patient was started on IV fluids and the patient's initial corrected calcium was 13.6, which came out to 11.4 and has been around that number for the last 2 days. The patien t was given zoledronate yesterday, 1 dose, and currently calcium is being monitored. The patient has been severely deconditioned and has had 2 falls in the last 24 hours. The patient got a CT scan of the head as well as CAT scan of the abdomen, pelvis, as the patient's hemoglobin dropped. CT demonstrated a right gluteal and piriformis muscle hematoma without underlying pelvic fracture. 2 units of PRBCs and transfuse as the patient's hemoglobin was 6.4 and now after 2 units. The patient hemoglobin is 6.7. There is also some dilutional effect as the patient has been on IV fluids for hypercalcemia. The patient and the brother had a discussion with me yesterday and the patient wanted to change his CODE STATUS, and currently is DNR/DNI. The brother was also very adamant about his anxiety as well as his pain and for that reason, he had requested better pain control as well as antianxiety medications. He was started on Percocet 5 mg twice a day as well as Ativan 0.5 mg 3 times a day when necessary for agitation and anxiety. The patient is slightly altered, which could be multifactorial gi use of his uremia, multiple medications as well as anemia. Currently the patient is only DNR/DNI and a discussion for possible hospice will be made if the patient does not show much improvement. 1 Hyper-calcemia possibly 2/2 Leukemia or Hyperthyroidism: Calcium has remained stable the past 24 hours . Will continue with IV NS at 100mL/hr and 1 dose with zoledronic acid was given yesterday. recheck calcium levels 2 Mechanical fall: Head CT noncontrast results demonstrated no acute intracrania l pathology. The patients CBC returned with a hemoglobin of 6.2. CT abdomen/Pelvis demonstrated a right gluteal and piriformis muscle hematoma without underlying pelvic fracture. Patient was transferred two units of PRBCs and HB is 6.7. Will continue to Hb monitoring. And transfuse as needed. 3. Acute Kidney Injury 2/2 pre-renal or Leukemia Cr continues to trend down Continue hydration and monitor for further improvement 4. Altered Mental Status likely secondary to polypharmacy. Which could be multifactorial because of his uremia, multiple medications as well as anemia CT imaging is negative for an acute subdural or epidural hematoma . Patient was currently on Ambien, Percocet, Ativan, and Baclofen in the setting of renal failure, which are held right now. 5. Hyperthyroidism c/w Methimazole 5. Plasma Cell Leukemia Had 3rd round of chemo 4 days ago .F/U with [facility] in [place], [place] 6. Low Back Pain . Chronic, most likely not related to hypercalcemia or leukemia. 7. Hypertension. /w amlodipine, carvedilol. DISPOSITION: pending further improvement in Renal Function and Calcium levels VS,Osman, I+O VS, Osman, I+O Laboratory Tests 09/18/19 01:29 09/18/19 05:40 Vital Signs Date Time Temp Pulse Resp B/P (MAP) Pulse Ox O2 Delivery O2 Flow Rate FiO2 09/18/19 07:58 98.7 120 20 148/85 98 Room Air I&O- Last 24 Hours up to 6 AM 09/18/19 06:00 Intake Total 2478 ml Output Total 2420 ml Balance 58 ml KICHLOO,N[place] A. MD Sep 18, 2019 08:07
[2019-09-18] MEDS: TAMSULOSIN 0.4 MG CAP PO SCH (09:57)
[2019-09-18] MEDS: OMEPRAZOLE 20 MG CAP PO SCH (09:57)
[2019-09-18] MEDS: DOCUSATE SODIUM 100 MG CAP PO SCH ×2 (09:57→20:11)
[2019-09-18] MEDS: valACYclovir HCL 500 MG TAB PO SCH (09:57)
[2019-09-18] MEDS: BACLOFEN 10 MG TAB PO SCH ×2 (09:57→20:12)
[2019-09-18] MEDS: FOLIC ACID 1 MG TAB PO SCH (09:57)
[2019-09-18] MEDS: CARVedilol 3.125 MG TAB PO SCH ×2 (10:00→20:12)
[2019-09-18] MEDS: amLODIPine 5 MG TAB PO SCH (10:01)
[2019-09-18 10:10] LABS: HEMATOCRIT 24.8 % (42.0-52.0); HEMOGLOBIN 7.8 g/dl (13.5-17.5); MEAN CORPUSCULAR HEMOGLOBIN 30.7 pg (27.0-33.0); MEAN CORPUSCULAR HGB CONC 31.5 g/dl (32.0-36.5); MEAN CORPUSCULAR VOLUME 97.6 fl (80.0-96.0); RED BLOOD COUNT 2.54 10^6/uL (4.30-6.10); WHITE BLOOD COUNT 11.6 10^3/uL (4.0-10.0)
[2019-09-18 10:12] LABS: PLATELET COUNT, AUTOMATED 37 10^3/uL (150-450)
[2019-09-18] MEDS ORDERED: LORazepam 0.5 MG TAB PO PRN (19:15)
[2019-09-18] MEDS: ACETAMINOPHEN TAB 650MG DOSE (2X325MG) PO PRN (19:17)
[2019-09-18] MEDS: ATORVASTATIN 10 MG TAB PO SCH (20:12)
[2019-09-18] MEDS: LATANOPROST 0.005% OPHTH SOLN 2.5 ML OU SCH ×2 (20:13→21:00)
[2019-09-18] MEDS: ATORVASTATIN 20 MG TAB PO SCH (20:13)
[2019-09-18] MEDS ORDERED: LORazepam 2 MG/ML VIAL (J2060) IV STA ×2 (22:03→22:29)
[2019-09-18] MEDS ORDERED: LORazepam 2 MG/ML VIAL (J2060) As Ordered ONE (22:04)
[2019-09-19] MEDS: MORPHINE 2 MG/ML 1ML VIAL (J2270) IV PRN ×2 (01:41→08:05)
[2019-09-19 02:00] VITALS: BP 154/84
[2019-09-19] MEDS ORDERED: LORazepam 2 MG/ML VIAL (J2060) IV STA (02:59)
[2019-09-19] MEDS: NS 1,000 ML IV SCH (03:49)
[2019-09-19 06:00] VITALS: BP 114/57
[2019-09-19] MEDS: LORazepam 2 MG/ML VIAL (J2060) IV PRN ×4 (06:30→18:31)
[2019-09-19 07:05] LABS: HEMATOCRIT 23.2 % (42.0-52.0); HEMOGLOBIN 7.3 g/dl (13.5-17.5); MEAN CORPUSCULAR HEMOGLOBIN 30.8 pg (27.0-33.0); MEAN CORPUSCULAR HGB CONC 31.5 g/dl (32.0-36.5); MEAN CORPUSCULAR VOLUME 97.9 fl (80.0-96.0); RED BLOOD COUNT 2.37 10^6/uL (4.30-6.10); WHITE BLOOD COUNT 14.6 10^3/uL (4.0-10.0)
[2019-09-19 07:24] LABS: PLATELET COUNT, AUTOMATED 36 10^3/uL (150-450)
[2019-09-19 07:25] LABS: CALCIUM LEVEL 11.2 MG/DL (8.8-10.2); CREATININE FOR GFR 3.13 MG/DL (0.70-1.30); GLOMERULAR FILTRATION RATE 21.1 (>49); POTASSIUM SERUM 3.7 MEQ/L (3.5-5.1)
[2019-09-19] MEDS ORDERED: ZOLEDRONIC ACID 4 MG in D5W 100 ML IV ONE (07:45)
[2019-09-19] MEDS: HumaLOG INSULIN (NovoLOG) PER UNIT SC SCH ×2 (08:06→11:48)
[2019-09-19] MEDS: DOCUSATE SODIUM 100 MG CAP PO SCH ×2 (08:08→20:27)
[2019-09-19] MEDS: CARVedilol 3.125 MG TAB PO SCH (08:08)
[2019-09-19] MEDS: amLODIPine 5 MG TAB PO SCH (08:09)
[2019-09-19] MEDS: FOLIC ACID 1 MG TAB PO SCH (08:09)
[2019-09-19] MEDS: TAMSULOSIN 0.4 MG CAP PO SCH (08:09)
[2019-09-19] MEDS: BACLOFEN 10 MG TAB PO SCH (08:09)
[2019-09-19] MEDS: valACYclovir HCL 500 MG TAB PO SCH (08:10)
[2019-09-19] MEDS: OMEPRAZOLE 20 MG CAP PO SCH (08:10)
[2019-09-19 08:12] VITALS: BP 139/73
[2019-09-19] MEDS ORDERED: LORazepam 2 MG/ML VIAL (J2060) As Ordered ONE ×4 (08:30→18:28)
[2019-09-19 10:00] VITALS: BP 128/66
--- NOTE | 2019-09-19 10:00 | IPNPDOC ---
Date Seen The patient was seen on 09/19/19. Progress Note SUBJECTIVE: Patient was seen and examined this morning lying in bed. He appears awake but does not respond to questions or follow directions appropriately. He is flailing his arms and legs. He has to prevent him from pulling out lines. OBJECTIVE PHYSICAL EXAMINATION: VITAL SIGNS: Please see below. GENERAL: Awake and alert, appears agitated, lying in bed. Appears confused and does not respond appropriately. HEENT: Normocephalic, atraumatic, PERRLA, moist mucous membranes NECK: Supple, trachea midline, no lymphadenopathy, no thyromegaly CARDIOVASCULAR: Tachycardic rate. Regular rhythm, normal S1 and S2. No murmurs, rubs, or gallops RESPIRATORY: Clear to auscultation bilaterally with equal air entry bilaterally. No wheezing, rhonchi, or rales. ABDOMEN: Soft, nontender, nondistended, bowel sounds present EXTREMITIES: No cyanosis or edema. Pulses 2+/4 in bilateral upper and lower ext remities. Air cast on the right leg for prior fracture SKIN: Multiple areas of ecchymosis on the patient's thorax, abdomen, and benefits NEUROLOGIC: Patient is alert but does not respond appropriately or follow directions and does not cooperate with full neurological exam. He is moving all 4 extremities spontaneously. PSYCHIATRIC: Mood and affect appropriate LABORATORY DATA, IMAGING STUDIES, MICROBIOLOGY: Please see below. 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 - will switch from Ativan to Haldol for agitation/anxiety, pending EKG to r/o long QT interval #Hyper-calcemia possibly 2/2 Leukemia or Hyperthyroidism: -Calcium has remained continues to improve this morning -Will continue with IV NS at 75mL/hr, s/p treatment with zoledronic acid #Anemia -multifactorial due to leukemia and acute blood loss from mechanical fall and subsequent hematoma - required 2 units PRBCs, H/H improved and stable this morning. - anticoagulation remains on hold #Acute Kidney Injury 2/2 pre-renal or Leukemia -Cr bumped up to 3.13 today -Continue IV hydration #Mechanical fall -denies any symptoms of presyncope, no LOC -xray of bilateral hips and pelvis negative for fracture -CT Head is negative for an acute subdural or epidural hematoma #Hyperthyroidism -c/w Methimazole -recheck thyroid panel today considering change in mental status #Plasma Cell Leukemia -Had 3rd round of chemo 4 days prior to admission -F/U with [facility] in [place], [place] #Low Back Pain -Chronic, most likely not related to hypercalcemia or leukemia. #Hypertension c/w amlodipine, carvedilol. DVT prophylaxis: 5000U Heparin SC CODE STATUS: DNR/DNI DISPOSITION: pending improvement in mental status ATTENDING NOTE I have personally evaluated and examined the patient. Discussed with residents and student regarding plan of care and agree with the above assessment and plan. After discussion with patient's brother, whom had discussed patient's status with other family members, they have requested to make patient comfort measures only and to discontinue further medical management. Patient was made NECK PINNER, to discontinue all blood draw and comfort bundle was initiated. Patient was seen by hospice and had recommended morphine drip and Ativan. Orders placed. VS, I&O, 24H, Fishbone Vital Signs/I&O Vital Signs Date Time Temp Pulse Resp B/P (MAP) Pulse Ox O2 Delivery O2 Flow Rate FiO2 09/19/19 08:15 20 09/19/19 08:12 120 139/73 (95) 09/19/19 06:00 97.8 95 Room Air I&O- Last 24 Hours up to 6 AM 09/19/19 06:00 Intake Total 3275 ml Output Total 1585 ml Balance 1690 ml Laboratory Data 24H LABS Laboratory Tests 2 09/18/19 09:57: Nucleated Red Blood Cells % (auto) 1.0H, Immature Platelet Fraction 2.4 09/18/19 11:58: Bedside Glucose (Misc Panel) 207H 09/18/19 17:00: Bedside Glucose (Misc Panel) 152H 09/18/19 20:23: Bedside Glucose (Misc Panel) 190H 09/19/19 06:41: Nucleated Red Blood Cells % (auto) 1.0H, Anion Gap 9, Glomerular Filtration Rate 21.1L, Calcium Level 11.2H 09/19/19 08:39: Urine Color STRAW, Urine Appearance CLEAR, Urine pH 8.0, Urine Specific [place] 1.009, Urine Protein 1+H, Urine Glucose (UA) NEGATIVE, Urine Ketones NEGATIVE, Urine Blood 3+H, Urine Nitrite NEGATIVE, Urine Bilirubin NEGATIVE, Urine Urobilinogen 0.2, Urine Leukocyte Esterase NEGATIVE, Urine WBC (Auto) 5H, Urine RBC (Auto) TNTCH, Urine Hyaline Casts (Auto) 0, Urine Bacteria (Auto) NEGATIVE, Urine Squamous Epithelial Cells 0, Urine Mucus (Auto) SMALL, Urine Sperm (Auto) 09/19/19 09:19: CBC/BMP Laboratory Tests 09/18/19 09:57 09/19/19 06:41 Microbiology Microbiology 09/19/19 Blood Culture, Received Pending 09/15/19 Blood Culture - Preliminary, Resulted No Growth after 72 hours. All specime... 09/15/19 Blood Culture - Preliminary, Resulted No Growth after 72 hours. All specime... JAMAAL MULLINS D.O. Sep 19, 2019 10:00 DELMY YODER MD Sep 19, 2019 13:47
[2019-09-19] MEDS ORDERED: HALOPERIDOL 5 MG/ML VIAL (J1630) IV PRN (10:15)
[2019-09-19 10:23] LABS: FREE THYROXINE INDEX 3.1 % (1.4-3.8); THYROID STIMULATING HORMONE 0.796 uIU/ML (0.358-3.740); THYROXINE (T4) 8.6 UG/DL (4.5-12.0)
[2019-09-19] MEDS ORDERED: BISACODYL 10 MG SUPP PR PRN (12:00)
[2019-09-19] MEDS ORDERED: ACETAMINOPHEN *IV* 1,000 MG in IV 1 EA IV ONE (12:00)
[2019-09-19] MEDS ORDERED: SCOPOLAMINE 1MG TRANSDERMAL PATCH TOP PRN (12:00)
[2019-09-19] MEDS ORDERED: HYOSCYAMINE SULFATE 0.125 MG SUBL TABLET PO PRN (12:00)
[2019-09-19] MEDS: MORPHINE SULF IN 0.9% NACL 100 MG in IV 1 EA IV SCH ×2 (13:39)
[2019-09-19] MEDS ORDERED: LORazepam 2 MG/ML VIAL (J2060) IV PRN (14:00)
[2019-09-19] MEDS ORDERED: EPIDURAL/PCA KEYS XX PRN (14:00)
[2019-09-19] MEDS: LATANOPROST 0.005% OPHTH SOLN 2.5 ML OU SCH (20:27)
--- NOTE | 2019-09-20 08:07 | ECGEPIP ---
[facility] Test Date: 2019-09-19 Pat Name: DEVORA ZAYAS Department: Room: [place] [address] Gender: Male [place] Ripper: HERMELINDO : 1950 Requested By: JAMAAL MULLINS D.O. Order Number: [id number] Reading MD: Alo Higgins Measurements Intervals [place] Rate: 101 P: 35 [place]: 108 QRS: 40 QRSD: 85 T: 61 QT: 335 QTc: 435 Interpretive Statements SINUS TACHYCARDIA WITH SHORT [place] INTERVAL NONSPECIFIC T-WAVE ABNORMALITY Rate slightly increased from tracing done 09-15-19 Electronically Signed on 09-20-2019 8:07:13 EST by Alo Higgins
--- NOTE | 2019-09-20 11:46 | IPNPDOC ---
Date Seen The patient was seen on 09/20/19. Progress Note SUBJECTIVE: Patient was seen and examined at the bedside this morning with brother and son also at the bedside. Patient appears to be peacefully sleeping and in no acute distress. OBJECTIVE PHYSICAL EXAMINATION: VITAL SIGNS: Please see below. GENERAL: Awake and alert, appears agitated, lying in bed. Appears confused and does not respond appropriately. HEENT: Normocephalic, atraumatic, PERRLA, moist mucous membranes NECK: Supple, trachea midline, no lymphadenopathy, no thyromegaly CARDIOVASCULAR: regular rate, Regular rhythm, normal S1 and S2. No murmurs, rubs, or gallops RESPIRATORY: Clear to auscultation bilaterally with equal air entry bilaterally. No wheezing, rhonchi, or rales. ABDOMEN: Soft, nontender, nondistended, bowel sounds present EXTREMITIES: No cyanosis or edema. SKIN: Multiple areas of ecchymosis on the patient's thorax, abdomen, and benefits NEUROLOGIC: did not examine LABORATORY DATA, IMAGING STUDIES, MICROBIOLOGY: Please see below. 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 #Plasma cell leukemia: -Morphine drip for pain -Hyoscyamine for secretions -Ativan for agitation -No vitals, labs CODE STATUS: DNR/DNI DISPOSITION: pending placement in hospice house VS, I&O, 24H, [facility] Vital Signs/I&O Vital Signs Date Time Temp Pulse Resp B/P (MAP) Pulse Ox O2 Delivery O2 Flow Rate FiO2 09/19/19 10:00 100.3 104 22 128/66 (86) 98 Room Air I&O- Last 24 Hours up to 6 AM 09/20/19 06:00 Intake Total 498 ml Output Total 850 ml Balance -352 ml Laboratory Data Microbiology Microbiology 09/19/19 Blood Culture - Preliminary, Resulted No growth after 24 hours . All specim... 09/15/19 Blood Culture - Final, Complete NO GROWTH AFTER 5 DAYS 09/15/19 Blood Culture - Final, Complete NO GROWTH AFTER 5 DAYS GME ATTESTATION GME ATTESTATION My faculty preceptor for this patient encounter was physically present during the encounter and was fully available. All aspects of the patient interview, examination, medical decision making process, and medical care plan development were reviewed and approved by the faculty preceptor. The faculty preceptor is aware and concurs with the plan as stated in the body of this note and will atte st to such by his/her cosignature. ATTENDING NOTE I have personally evaluated and examined the patient. Discussed with resident/student regarding plan of care and agree with the above assessment and plan. JAGDISH HERNANDEZ MD Sep 20, 2019 11:46 DELMY YODER MD Sep 20, 2019 14:26
[2019-09-20] MEDS: MORPHINE SULF IN 0.9% NACL 100 MG in IV 1 EA IV SCH ×2 (12:49)
[2019-09-20] MEDS: LATANOPROST 0.005% OPHTH SOLN 2.5 ML OU SCH (20:03)
--- NOTE | 2019-09-21 13:20 | DS.PDOC ---
Discharge Summary General Date of Admission Sep 15, 2019 at 11:07 Date of Discharge September 20, 2019 Attending Physician: DELMY YODER MD Discharge Summary NOTE HOSPITAL COURSE: Patient presented to the ED with 3 days progressively worsening weakness and malaise and found to have hypercalcemia in the setting of ongoing chemotherapy for his Plasma Cell Leukemia. He was also found to have PERLITA likely secondary to chemotherapy medication side effect vs renal involvement of his cancer. He was started on aggressive fluid hydration with fall precautions and suspension of any sedating or possibly implicating medications for alteration of mentation. On hospital day #2, the patient began having waxing/waning altered mental status that was confirmed by family in which he became more agitated and confused, frequently trying to get out of bed without assistance. As such, he did suffer a fall onto his backside, but initial XR of pelvis/hips was negative for any fracture. The patient's mental status continued to decline in ensuing days, although his calcium did decrease in response to fluids and Zolendronic acid. He did suffer another fall when trying to get out of bed with family present. A CT scan of his head was negative for bleed, but he was found to have gluteal and piriformis muscle hematoma and subsequently was anemic, so he was transfused 2U pRBCs. On hospital day #4, the hospitalist attending held a discussion with the patient and his family where the patient's healthcare proxy made the decision to change his code status to DNR/DNI. The following day, when the patient's mental status acutely worsened, it was decided that he would be made COMFORT MEASURES ONLY. The patient was placed on Morphine drip, Zofran and Ativan for comfort. The patient in no distress on Hospital Day #6. TIME OF : 219909/20/2019 Vital Signs/I&Os Vital Signs Date Time Temp Pulse Resp B/P (MAP) Pulse Ox O2 Delivery O2 Flow Rate FiO2 09/19/19 10:00 100.3 104 22 128/66 (86) 98 Room Air I&O- Last 24 Hours up to 6 AM 09/21/19 06:00 Intake Total 48 ml Output Total 350 ml Balance -302 ml Microbiology Microbiology 09/19/19 Blood Culture - Preliminary, Resulted No Growth after 48 hours. All Specime... 09/15/19 Blood Culture - Final, Complete NO GROWTH AFTER 5 DAYS 09/15/19 Blood Culture - Final, Complete NO GROWTH AFTER 5 DAYS Discharge Medications Scheduled Allopurinol (Zyloprim) 300 Mg Tablet, 300 MG PO DAILY, (Reported) Amlodipine Besylate (Amlodipine Besylate) 5 Mg Tablet, 5 MG PO DAILY, (Reported) Aspirin (Aspirin EC) 325 Mg Tablet.dr, 325 MG PO DAILY, (Reported) Atorvastatin Calcium (Lipitor) 20 Mg Tablet, 20 MG PO QPM, (Reported) TAKE WITH 10MG TABLET Atorvastatin Calcium (Atorvastatin Calcium) 10 Mg Tablet, 10 MG PO QPM, (Reported) TAKE WITH 20MG TABLET Baclofen (Baclofen) 10 Mg Tablet, 10 MG PO BID, (Reported) Brimonidine Tartrate/Timolol (Combigan 0.2%-0.5% Eye Drops) 5 Ml Drops, 1 DROP OD BID, (Reported) Carvedilol (Carvedilol) 3.125 Mg Tablet, 3.125 MG PO BID, (Reported) Folic Acid (Folic Acid) 1 Mg Tablet, 1 MG PO DAILY, (Reported) Insulin Detemir (Levemir Flextouch) 100 Unit/1 Ml Insuln.pen, 16 UNIT SQ BID, (Reported) Insulin Human Lispro (Humalog) 100 Unit/1 Ml Vial, 1 DOSE SC BID, (Reported) Methimazole (Methimazole) 5 Mg Tablet, 5 MG PO Q2D, (Reported) QHS: ALTERNATE 5MG AND 10MG EVERY OTHER DAY Methimazole (Methimazole) 10 Mg Tablet, 10 MG PO Q2D, (Reported) QHS: ALTERNATE 5MG AND 10MG EVERY OTHER DAY Omeprazole (Omeprazole) 20 Mg Capsule.dr, 1 CAP PO DAILY Sitagliptin Phosphate (Januvia) 100 Mg Tablet, 50 MG PO DAILY, (Reported) Sulfamethoxazole/Trimethoprim (Bactrim Ds Tablet) 1 Each Tablet, 1 TAB PO 3XW, (Reported) MON, WED, FRI Torsemide (Torsemide) 10 Mg Tablet, 10 MG PO DAILY, (Reported) Travoprost (Travatan Z) 0.004% 2.5ML Drops, 1 DROP OU QHS, (Reported) Valacyclovir HCl (Valacyclovir) 500 Mg Tablet, 500 MG PO DAILY Zolpidem Tartrate (Zolpidem Tartrate ER) 12.5 Mg Tab.mphase, 12.5 MG PO QHS, (Reported) Scheduled PRN Acetaminophen (Acetaminophen) 325 Mg Tablet, 650 MG PO Q4H PRN for PAIN, (Reported) Baclofen (Baclofen) 10 Mg Tablet, 10 MG PO DAILY PRN for SPASMS, (Reported) Docusate Sodium (Colace) 100 Mg Capsule, 100 MG PO DAILY PRN for CONSTIPATION, (Reported) Hydrocodone/Acetaminophen (Hydrocodone-Acetamin 7.5-325) 1 Each Tablet, 1 TAB PO TID PRN for PAIN, (Reported) Ondansetron HCl (Ondansetron HCl) 8 Mg Tablet, 8 MG PO Q6H PRN for NAUSEA OR VOMITING TAKE ONE TABLET EVERY 6 HOURS NEEDED FOR NAUSEA. Prochlorperazine Maleate (Prochlorperazine Maleate) 10 Mg Tablet, 10 MG PO Q8H PRN for NAUSEA OR VOMITING TAKE ONE TABLET EVERY 8 HOURS NEEDED FOR NAUSEA. Allergies Coded Allergies: indomethacin (Verified Adverse Reaction, Unknown, HEARTBURN, 09/15/19) GME ATTESTATION GME ATTESTATION My faculty preceptor for this patient encounter was physically present during the encounter and was fully available. All aspects of the patient interview, examination, medical decision making process, and medical care plan development were reviewed and approved by the faculty preceptor. The faculty preceptor is aware and concurs with the plan as stated in the body of this note and will attest to such by his/her cosignature. ATTENDING NOTE I have personally evaluated and examined the patient. Discussed with resident/student regarding plan of care and agree with the above discharge assessment and plan. JAGDISH HERNANDEZ MD Sep 21, 2019 13:19 DELMY YODER MD Sep 21, 2019 13:29
== END 2019-09-20 22:00 | disposition expired | DRG 640 ==
LOC: M ED 08:12 → M ED INP 11:07 → M MS5PR 12:00 → M MSPAV 14:19
PROVIDERS: ADMIT Internal Medicine; ATTEND Student in an Organized Health Care Education/Training Program
PROC: 30233N1 Transfusion of Nonautologous Red Blood Cells into Peripheral Vein, Percutaneous Approach (ICD-10-PCS; principal; 2019-09-18)
DX: E83.52 Hypercalcemia (principal); G93.41 Metabolic encephalopathy; C90.10 Plasma cell leukemia not having achieved remission; N17.9 Acute kidney failure, unspecified; D62 Acute posthemorrhagic anemia; Z92.21 Personal history of antineoplastic chemotherapy; D63.0 Anemia in neoplastic disease; E11.9 Type 2 diabetes mellitus without complications; I10 Essential (primary) hypertension; E05.90 Thyrotoxicosis, unspecified without thyrotoxic crisis or storm; E78.00 Pure hypercholesterolemia, unspecified; H40.9 Unspecified glaucoma; M06.9 Rheumatoid arthritis, unspecified; M50.90 Cervical disc disorder, unspecified, unspecified cervical region; Z98.1 Arthrodesis status; R41.82 Altered mental status, unspecified; Z96.659 Presence of unspecified artificial knee joint; Z79.82 Long term (current) use of aspirin; Z79.4 Long term (current) use of insulin; Z79.899 Other long term (current) drug therapy; Z88.6 Allergy status to analgesic agent; S30.0XXA Contusion of lower back and pelvis, initial encounter; S00.93XA Contusion of unspecified part of head, initial encounter; W19.XXXA Unspecified fall, initial encounter; Y92.231 Patient bathroom in hospital as the place of occurrence of the external cause; Z66 Do not resuscitate; Z51.5 Encounter for palliative care; R29.6 Repeated falls; T50.905A Adverse effect of unspecified drugs, medicaments and biological substances, initial encounter